=== PATIENT | female | born 1970 | race Caucasian/White ===

== ENCOUNTER 2018-10-03 15:09 | Emergency (ER) | payer MEDICARE, OTHER ==
[~2018-10-03] VITALS: Ht 170.2 cm; Wt 102.3 kg
[~2018-10-03 15:09] MED LIST: /AMLO25TA; /ESOM40CA; BETA80TA; BYSTOLIC; ECOT325T5; ESTRATEST; GLUC500T; RAMI25CA; RANE1000; RANO5TAB; SODIUM CHLORIDE 0.9% INJ 10 ML SYR IV SCH; VYTO10TA5; ZOLO100T
[2018-10-03] MEDS ORDERED: ASPIRIN 81 MG CHEW TABLET PO ONE (15:30)
[2018-10-03] MEDS ORDERED: GI COCKTAIL 50ML BTL(HYOSCYAMINE/MAALOX/LIDOCAINE VISCOUS)(1:3:1) PO ONE (15:30)
--- NOTE | 2018-10-03 15:50 | REP ---
Oral chest x-ray: Single view. History: Chest pain. Comparison study September 27, 2014. Findings: An Wcftzt-S-Smpq catheter is seen in place in the expected location of the superior vena cava. EKG electrodes are seen. Lungs are well inflated and clear. Heart is not enlarged. Left coronary artery stent material is visible. Pleural angles are sharp. No bony abnormality is seen. Impression: No active cardiopulmonary disease. Status post coronary artery stenting. Opkygj-V-[id number] catheter. Electronically Signed by Trent Devlin MD 10/03/2018 03:42 P
[2018-10-03 16:23] LABS: BASO % 0.5 % (0.0-1.0); EOS # 0.1 10^3/uL (0.0-0.50); HEMATOCRIT 37.6 % (36.0-47.0); HEMOGLOBIN 13.1 g/dl (12.0-15.5); LYMPH # 1.8 10^3/uL (1.5-4.5); LYMPH % 32.8 % (24.0-44.0); MEAN CORPUSCULAR HEMOGLOBIN 32.9 pg (27.0-33.0); MEAN CORPUSCULAR HGB CONC 34.8 g/dl (32.0-36.5); MEAN CORPUSCULAR VOLUME 94.5 fl (80.0-96.0); MONO # 0.7 10^3/uL (0.0-0.8); MONO % 12.2 % (0.0-5.0); NEUTROPHILS # 2.9 10^3/uL (1.8-7.7); NEUTROPHILS % 52.3 % (36.0-66.0); PLATELET COUNT, AUTOMATED 294 10^3/uL (150-450); RED BLOOD COUNT 3.98 10^6/uL (4.00-5.40); WHITE BLOOD COUNT 5.6 10^3/uL (4.0-10.0)
[2018-10-03] MEDS: NITROGLYCERIN 0.4 MG SUBL TABLET SL PRN ×3 (16:25→16:35)
[2018-10-03 16:30] LABS: INR 0.92; PROTHROMBIN TIME 12.4 SECONDS (12.1-14.4)
[2018-10-03 16:35] VITALS: BP 114/69
[2018-10-03 16:59] LABS: ALBUMIN 3.7 GM/DL (3.2-5.2); ALT/SGPT 68 U/L (12-78); BILIRUBIN,DIRECT < 0.1 MG/DL (0.0-0.2); BILIRUBIN,TOTAL 0.2 MG/DL (0.2-1.0); BLOOD UREA NITROGEN 22 MG/DL (7-18); CALCIUM LEVEL 8.2 MG/DL (8.5-10.1); CARBON DIOXIDE LEVEL 24 MEQ/L (21-32); CHLORIDE LEVEL 106 MEQ/L (98-107); CK-MB VALUE MASS < 1.0 NG/ML (<3.6); CPK CREATINE PHOSPHOKINASE 75 U/L (26-192); CREATININE FOR GFR 0.72 MG/DL (0.55-1.30); GLOMERULAR FILTRATION RATE > 60.0 (>58); GLUCOSE, FASTING 132 MG/DL (70-100); MB/CK RELATIVE INDEX 1.33 (< OR =4); NT-PRO BNP 68 PG/ML (<125); SODIUM LEVEL 139 MEQ/L (136-145); THYROID STIMULATING HORMONE 0.641 uIU/ML (0.358-3.740); TOTAL PROTEIN 6.9 GM/DL (6.4-8.2); TROPONIN I < 0.02 NG/ML (< 0.10)
[2018-10-03] MEDS ORDERED: fentaNYL 100 MCG/2 ML INJECTION (J3010) IV ONE ×2 (17:00→17:45)
[2018-10-03] MEDS ORDERED: TRAM50TA2 PO (17:37)
--- NOTE | 2018-10-03 17:40 | ECGEPIP ---
Stationary ECG Study [facility] - ED Test Date: 2018-10-03 Pat Name: ALBAN HINES Department: Room: - Gender: F Integration Solution [employer]: VIDYA : [id number] Requested By: Iris Lamas Order Number: [id number] Reading MD: Iris Lamas Measurements Intervals [place] Rate: 66 P: 40 WV: 134 QRS: 43 QRSD: 95 T: 128 QT: 411 QTc: 432 Interpretive Statements SINUS RHYTHM ST DEVIATION AND MODERATE T-WAVE ABNORMALITY, CONSIDER ANTEROLATERAL ISCHEMIA DECREASED RATE 09/28/14 Electronically Signed On 10-03-2018 17:40:21 EST by Iris Lamas
[2018-10-03] MEDS ORDERED: diphenhydrAMINE INJ 50MG/ML VIAL (J1200) IV STA (17:43)
[2018-10-03] MEDS ORDERED: SODIUM CHLORIDE 0.9% INJ 10 ML SYR IV PRN (18:15)
[2018-10-03 18:20] VITALS: BP 135/75
== END 2018-10-03 18:28 | disposition home or self-care (01) ==
LOC: M ED 15:09
DX: R07.89 Other chest pain (principal); I10 Essential (primary) hypertension; E11.9 Type 2 diabetes mellitus without complications; I25.10 Atherosclerotic heart disease of native coronary artery without angina pectoris; K21.9 Gastro-esophageal reflux disease without esophagitis; Z82.49 Family history of ischemic heart disease and other diseases of the circulatory system; Z79.899 Other long term (current) drug therapy; Z79.82 Long term (current) use of aspirin; Z88.0 Allergy status to penicillin; Z88.5 Allergy status to narcotic agent; Z88.8 Allergy status to other drugs, medicaments and biological substances
CPT/HCPCS: 71045; 80048; 80076; 82550; 82553; 83880; 84443; 84484; 85025; 85610; 93005; 93041; 94760; 96374; 96375; 99285; J1200; J3010

== ENCOUNTER 2020-11-01 23:17 | Observation (INO) | payer MEDICARE, OTHER ==
[~2020-11-01] VITALS: Ht 170.2 cm; Wt 108.9 kg
[2020-11-01] MEDS: busPIRone 5 MG TAB PO SCH (21:00)
[2020-11-01] MEDS: SOTALOL HCL 80 MG TAB PO SCH (21:00)
[~2020-11-01 23:17] MED LIST changes: -/AMLO25TA; -/ESOM40CA; -BETA80TA; +NEXI1CAP3; +NORV2TAB; +PRAMIPEXOLE 0.25 MG TAB PO SCH; -SODIUM CHLORIDE 0.9% INJ 10 ML SYR IV SCH; +SOTA80TA; +TRAM50TA2 PO; +traZODone 100 MG TAB PO SCH
[2020-11-02 00:37] VITALS: BP 116/73
--- OUTSIDE RECORDS SUMMARY | 2020-11-02 00:45 | CCD ---
Author Author [facility] Organization [facility] Address Unknown Phone Unavailable Care Team Providers [employer] Inspector Name Role Phone [facility] Unavailable Unavailable Kings, P Aiden DO Unavailable Unavailable Kings, P Aiden DO Unavailable Unavailable Kings, P Aiden DO Unavailable Unavailable Kings, P Aiden DO Unavailable Unavailable Kings, P Aiden DO Unavailable Unavailable Knigs, P Aiden DO Unavailable Unavailable Kings, P Aiden DO Unavailable Unavailable Kings, P Aiden DO Unavailable Unavailable Kings, P Aiden DO Unavailable Unavailable Kings, P Aiden DO Unavailable Unavailable Kings, P Aiden DO Unavailable Unavailable Kings, P Aiden DO Unavailable Unavailable Kings, P Aiden DO Unavailable Unavailable Kings, P Aiden DO Unavailable Unavailable Kings, P Aiden DO Unavailable Unavailable Kings, P Aiden DO Unavailable Unavailable Kings, P Aiden DO Unavailable Unavailable Kings, P Aiden DO Unavailable Unavailable Kings, P Aiden DO Unavailable Unavailable Kings, P Aiden DO Unavailable Unavailable Kings, P Aiden DO Unavailable Unavailable Kings, P Aiden DO Unavailable Unavailable Kings, P Aiden DO Unavailable Unavailable Kings, P Aiden DO Unavailable Unavailable Kings, P Aiden DO Unavailable Unavailable Kings, P Aiden DO Unavailable Unavailable Kings, P Aiden DO Unavailable Unavailable Kings, P Aiden DO Unavailable Unavailable Kings, P Aiden DO Unavailable Unavailable Kings, P Aiden DO Unavailable Unavailable Kings, P Aiden DO Unavailable Unavailable Kings, P Aiden DO Unavailable Unavailable Kings, P Aiden DO Unavailable Unavailable Kings, P Aiden DO Unavailable Unavailable Kings, P Aiden DO Unavailable Unavailable Kings, P Aiden DO Unavailable Unavailable Kings, P Aiden DO Unavailable Unavailable Kings, P Aiden DO Unavailable Unavailable Kings, P Aiden DO Unavailable Unavailable Kings, P Aiden DO Unavailable Unavailable Kings, P Aiden DO Unavailable Unavailable Kings, P Aiden DO Unavailable Unavailable Kings, P Aiden DO Unavailable Unavailable Kings, P Aiden DO Unavailable Unavailable Kings, P Aiden DO Unavailable Unavailable Kings, P Aiden DO Unavailable Unavailable Kings, P Aiden DO Unavailable Unavailable Kings, P Aiden DO Unavailable Unavailable Kings, P Aiden DO Unavailable Unavailable Kings, P Aiden DO Unavailable Unavailable Kings, P Aiden DO Unavailable Unavailable Kings, P Aiden DO Unavailable Unavailable Kings, P Aiden DO Unavailable Unavailable Kings, P Aiden DO Unavailable Unavailable Kings, P Aiden DO Unavailable Unavailable Kings, P Aiden DO Unavailable Unavailable Kings, P Aiden DO Unavailable Unavailable Kings, P Aiden DO Unavailable Unavailable Kings, P Aiden DO Unavailable Unavailable Kings, P Aiden DO Unavailable Unavailable Kings, P Aiden DO Unavailable Unavailable Kings, P Aiden DO Unavailable Unavailable Kings, P Aiden DO Unavailable Unavailable Kings, P Aiden DO Unavailable Unavailable Kings, P Aiden DO Unavailable Unavailable Kings, P Aiden DO Unavailable Unavailable Kings, P Aiden DO Unavailable Unavailable Kings, P Aiden DO Unavailable Unavailable TURRIN, STEPHAN Unavailable Unavailable TURRIN, STEPHAN Unavailable Unavailable TURRIN, STEPHAN Unavailable Unavailable TURRIN, STEPHAN Unavailable Unavailable LewisVivi wing PA-C Unavailable Unavailable LewisVivi PA-C Unavailable Unavailable LewisVivi PA-C Unavailable Unavailable LewisVivi PA-C Unavailable Unavailable LewisVivi PA-C Unavailable Unavailable LewisVivi PA-C Unavailable Unavailable LewisVivi PA-C Unavailable Unavailable LewisVivi PA-C Unavailable Unavailable LewisVivi PA-C Unavailable Unavailable Lewis, Vivi Perea PA-C Unavailable Unavailable Lewis, Vivi Perea PA-C Unavailable Unavailable Pocatello Falanga, A Lisa COMMUNICATION SPECIALIST Unavailable Unavailable [place] Falanga, A Lisa COMMUNICATION SPECIALIST Unavailable Unavailable [place] Falanga, A Lisa COMMUNICATION SPECIALIST Unavailable Unavailable Roman Falanga, A Lisa COMMUNICATION SPECIALIST Unavailable Unavailable Roman Falanga, A Lisa COMMUNICATION SPECIALIST Unavailable Unavailable Roman Falanga, A Lisa COMMUNICATION SPECIALIST Unavailable Unavailable Roman Falanga, A Lisa COMMUNICATION SPECIALIST Unavailable Unavailable [place]at[place] Falanga, A Lisa COMMUNICATION SPECIALIST Unavailable Unavailable Roman Falanga, A Lisa COMMUNICATION SPECIALIST Unavailable Unavailable [place] Falanga, A Lisa COMMUNICATION SPECIALIST Unavailable Unavailable Roman Falanga, A Lisa COMMUNICATION SPECIALIST Unavailable Unavailable [place] Falanga, A Lisa COMMUNICATION SPECIALIST Unavailable Unavailable Roman Falanga, A Lisa COMMUNICATION SPECIALIST Unavailable Unavailable Roman Falanga, A Lisa COMMUNICATION SPECIALIST Unavailable Unavailable Roman Falanga, A Lisa COMMUNICATION SPECIALIST Unavailable Unavailable [place] Falanga, A Lisa COMMUNICATION SPECIALIST Unavailable Unavailable Roman Falanga, A Lisa COMMUNICATION SPECIALIST Unavailable Unavailable Roman Falanga, A Lisa COMMUNICATION SPECIALIST Unavailable Unavailable Roman Falanga, A Lisa COMMUNICATION SPECIALIST Unavailable Unavailable [place] Falanga, A Lisa COMMUNICATION SPECIALIST Unavailable Unavailable Roman Falanga, A Lisa COMMUNICATION SPECIALIST Unavailable Unavailable Roman Falanga, A Lisa COMMUNICATION SPECIALIST Unavailable Unavailable [place] Falanga, A Lisa COMMUNICATION SPECIALIST Unavailable Unavailable [place] Falanga, A Lisa COMMUNICATION SPECIALIST Unavailable Unavailable [place] Falanga, A Lisa COMMUNICATION SPECIALIST Unavailable Unavailable Roman Falanga, A Lisa COMMUNICATION SPECIALIST Unavailable Unavailable [place] Falanga, A Lisa COMMUNICATION SPECIALIST Unavailable Unavailable [place] Falanga, A Lisa COMMUNICATION SPECIALIST Unavailable Unavailable [place] Falanga, A Lisa COMMUNICATION SPECIALIST Unavailable Unavailable Roman Falanga, A Lsia COMMUNICATION SPECIALIST Unavailable Unavailable LOURDES KRISHNAN MD Unavailable Unavailable LOURDES KRISHNAN MD Unavailable Unavailable LOURDES KRISHNAN MD Unavailable Unavailable LOURDES KRISHNAN MD Unavailable Unavailable LOURDES KRISHNAN MD Unavailable Unavailable AMERNATH, LINGAPPA MD Unavailable Unavailable AMERNATH, LINGAPPA MD Unavailable Unavailable AMERNATH, LINGAPPA MD Unavailable Unavailable AMERNATH, LINGAPPA MD Unavailable Unavailable AMERNATH, LINGAPPA MD Unavailable Unavailable AMERNATH, LINGAPPA MD Unavailable Unavailable AMERNATH, LINGAPPA MD Unavailable Unavailable Kings, P Aiden DO Unavailable Unavailable Kings, P Aiden DO Unavailable Unavailable Kings, P Aiden DO Unavailable Unavailable Kings, P Aiden DO Unavailable Unavailable Kings, P Aiden DO Unavailable Unavailable Kings, P Aiden DO Unavailable Unavailable Kings, P Aiden DO Unavailable Unavailable Kings, P Aiden DO Unavailable Unavailable Kings, P Aiden DO Unavailable Unavailable Kings, P Aiden DO Unavailable Unavailable Kings, P Aiden DO Unavailable Unavailable Kings, P Aiden DO Unavailable Unavailable Kings, P Aiden DO Unavailable Unavailable Kings, P Aiden DO Unavailable Unavailable Kings, P Aiden DO Unavailable Unavailable Kings, P Aiden DO Unavailable Unavailable Kings, P Aiden DO Unavailable Unavailable Kings, P Aiden DO Unavailable Unavailable Kings, P Aiden DO Unavailable Unavailable Kings, P Aiden DO Unavailable Unavailable Kings, P Aiden DO Unavailable Unavailable Kings, P Aiden DO Unavailable Unavailable Kings, P Aiden DO Unavailable Unavailable Kinsg, P Aiden DO Unavailable Unavailable Kings, P Aiden DO Unavailable Unavailable Kings, P Aiden DO Unavailable Unavailable Kings, P Aiden DO Unavailable Unavailable Kings, P Aiden DO Unavailable Unavailable Kings, P Aiden DO Unavailable Unavailable Kings, P Aiden DO Unavailable Unavailable Kings, P Aiden DO Unavailable Unavailable Kings, P Aiden DO Unavailable Unavailable Kings, P Aiden DO Unavailable Unavailable Kings, P Aiden DO Unavailable Unavailable Kings, P Aiden DO Unavailable Unavailable Kings, P Aiden DO Unavailable Unavailable Kings, P Aiden DO Unavailable Unavailable Kings, P Aiden DO Unavailable Unavailable Kings, P Aiden DO Unavailable Unavailable Kings, P Aiden DO Unavailable Unavailable Kings, P Aiden DO Unavailable Unavailable Kings, P Aiden DO Unavailable Unavailable Kings, P Aiden DO Unavailable Unavailable Kings, P Aiden DO Unavailable Unavailable Kings, P Aiden DO Unavailable Unavailable Kings, P Aiden DO Unavailable Unavailable Kings, P Aiden DO Unavailable Unavailable Kings, P Aiden DO Unavailable Unavailable Kings, P Aiden DO Unavailable Unavailable Kings, P Aiden DO Unavailable Unavailable Kings, P Aiden DO Unavailable Unavailable Kings, P Aiden DO Unavailable Unavailable Kings, P Aiden DO Unavailable Unavailable Kings, P Aiden DO Unavailable Unavailable Kings, P Aiden DO Unavailable Unavailable Kings, P Aiden DO Unavailable Unavailable Kings, P Aiden DO Unavailable Unavailable Kings, P Aiden DO Unavailable Unavailable Kings, P Aiden DO Unavailable Unavailable Kings, P Aiden DO Unavailable Unavailable Kings, P Aiden DO Unavailable Unavailable Kings, P Aiden DO Unavailable Unavailable Kings, P Aiden DO Unavailable Unavailable Kings, P Aiden DO Unavailable Unavailable Kings, P Aiden DO Unavailable Unavailable Kings, P Aiden DO Unavailable Unavailable Kings, P Aiden DO Unavailable Unavailable Kings, P Aiden DO Unavailable Unavailable Re-disclosure Warning The records that you are about to access may contain information from federally-assisted alcohol or drug abuse programs. If such information is present, then the following federally mandated warning applies: This information has been disclosed to you from records protected by federal confidentiality rules (42 CFR part 2). The federal rules prohibit you from making any further disclosure of this information unless further disclosure is expressly permitted by the written consent of the person to whom it pertains or as otherwise permitted by 42 CFR part 2. A general authorization for the release of medical or other information is NOT sufficient for this purpose. The Federal rules restrict any use of the information to criminally investigate or prosecute any alcohol or drug abuse patient.The records that you are about to access may contain highly sensitive health information, the redisclosure of which is protected by Article 27-F of the [facility] Public Health law. If you continue you may have access to information: Regarding HIV / AIDS; Provided by facilities licensed or operated by the [facility] Office of Mental Health; or Provided by the [facility] Office for People With Developmental Disabilities. If such information is present, then the following [facility] mandated warning applies: This information has been disclosed to you from confidential records which are protected by state law. State law prohibits you from making any further disclosure of this information without the specific written consent of the person to whom it pertains, or as otherwise permitted by law. Any unauthorized further disclosure in violation of state law may result in a fine or senior care sentence or both. A general authorization for the release of medical or other information is NOT sufficient authorization for further disc losure. Allergies and Adverse Reactions Type Description Substance Reaction Status Data Source(s ) Food allergy Rootbeer Rootbeer YASMINZARIA Imelda Are a [facility] BRANDNAME ZOFRAN IJ CHRISTINE 2 MG/ML ZOFRAN IJ CHRISTINE 2 MG/ML VOMITING [facility] BRANDNAME SEROQUEL SEROQUEL [facility] BRANDNAME NITRO-BID NITRO-BID <OTHER>severe headache C arthage [facility] BRANDNAME LYRICA LYRICA [facility] BRANDNAME AUGMENTIN AUGMENTIN [facility] allergy MORPHINE MORPHINE HIVES [facility] CLASS PCN (penicillin) PCN (penicillin) [facility] Family History Family Member Name Family Member Gender Family Member Status Date o f Status Description Data Source(s) Unknown Condition [facility] Unknown Condition [facility] Unknown Condition [facility] Encounters Encounter Providers Location Date Indications Data Source(s ) Outpatient Attender: [facility] 11/01/2020 07:2 0:00 PM EST [facility] Emergency Attender: Eliazar BARFIELDCConsultant: Aiden soares DO 11/01/2020 06:24:00 PM EST - 11/02/2020 12:03:00 AM EST [facility] Patient discharged. Outpatient Attender: Aiden Gaytaner: Aiden Kilpatrick DO 06/12/2020 04:01:00 PM EDT [facility] Outpatient Attender: Lisa victor FNPAttender: STEPHAN JENKINSConsultant: Aiden Kilpatrick DO 06/04/2020 10:27:00 P M EDT - 06/06/2020 10:40:00 AM EDT [facility] Patient discharged. 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 Outpatient Attender: Aiden Kilpatrick DOReferrer: Aiden Kilpatrick DO 09/12/2019 01:56:00 PM [facility] - 09/12/2019 02:48:00 PM EST [facility] Outpatient 09/07/2019 07:45:00 AM [facility] Outpatient 09/05/2019 11:51:00 AM [facility] Outpatient Attender: Lisa victor FNPAttender: STEPHAN JENKINSConsultant: Aiden Kings DO 09/05/2019 11:28:00 A M [facility] - 09/07/2019 11:17:00 AM [facility] Patient discharged. Medications Medication Brand Name Start Date Product Form Dose Route Admi nistrative Instructions Pharmacy Instructions Status Indications Reaction Description Data Source(s) Alprazolam 0.5 MG Oral Tablet Alprazolam 06/12/2020 05:18:17 PM EDT 0.5 MG active [facility] Metoprolol Tartrate 25 MG Oral Tablet Metoprolol Tartrate 04:30:06 PM EDT 25 MG active [facility] Pantoprazole 05/29/2020 06:15:10 AM EDT 40 MG acti ve [facility] pantoprazole 40 MG Delayed Release Oral Tablet Pantoprazole (Protonix) 40 mg tablet,delayed release (DR/EC) Pantoprazole (Protonix) 40 mg tablet,del ayed release (DR/EC) 04/26/2020 02:55:54 PM EDT 40 MG complet ed [facility] Clonazepam 0.5 MG Oral Tablet Clonazepam 01/31/2020 06:52:54 PM EDT 0.5 MG completed [facility] Clonazepam 0.5 MG Oral Tablet Clonazepam 01/31/2020 06:51:48 PM EDT 0.5 MG completed [facility] Clonazepam 0.5 MG Oral Tablet Clonazepam 01/31/2020 05:53:26 PM EDT 0.5 MG completed [facility] Clonazepam 0.5 MG Oral Tablet Clonazepam 01/31/2020 04:25:31 PM EDT 0.5 MG completed [facility] pantoprazole 40 MG Delayed Release Oral Tablet Pantoprazole (Protonix) 40 mg tablet,delayed release (DR/EC) Pantoprazole (Protonix) 40 mg tablet,del ayed release (DR/EC) 12/22/2019 10:49:36 AM EDT 40 MG complet ed [facility] pantoprazole 40 MG Delayed Release Oral Tablet Pantoprazole Pantoprazole 12/22/2019 10:49:36 AM EDT 40 MG active [facility] Trazodone Hydrochloride 100 MG Oral Tablet Trazodone 12/11 11:56:41 AM EDT 100 MG active [facility] Trazodone Hydrochloride 100 MG Oral Tablet Trazodone 12/11 11:56:41 AM EDT 100 MG active [facility] Sotalol Sotalol 12/12/2019 11:56:38 AM EDT 80 MG active [facility] Sotalol Sotalol 12/12/2019 11:56:38 AM EDT 80 MG [facility] Ramipril 2.5 MG Oral Capsule Ramipril 12/12/2019 11:56:34 AM EDT 2.5 MG active [facility] Ramipril 2.5 MG Oral Capsule Ramipril 12/12/2019 11:56:34 AM EDT 2.5 MG active [facility] buspirone hydrochloride 15 MG Oral Tablet Buspirone Buspiron e 12/12/2019 11:56:15 AM EDT 15 MG active [facility] buspirone hydrochloride 15 MG Oral Tablet Buspirone Buspiron e 12/12/2019 11:56:15 AM EDT 15 MG active [facility] Amlodipine 5 MG Oral Tablet Amlodipine 12/12/2019 11:56:08 AM EDT 5 MG active [facility] Amlodipine 5 MG Oral Tablet Amlodipine 12/12/2019 11:56:08 AM EDT 5 MG active [facility] Pramipexole dihydrochloride 0.5 MG Oral Tablet Pramipexole (Mirapex) 0.5 mg tablet Pramipexole (Mirapex) 0.5 mg tablet 11/03/2019 12:50:57 PM EST 0.5 MG active [facility] Pramipexole dihydrochloride 0.5 MG Oral Tablet Pramipexole 11/03/2019 12:50:57 PM EST 0.5 MG active [facility] 0.5 mg 10/01/2019 12:00:00 AM EST tablet 60 TAKE ONE TABLET BY MOUTH AT BEDTIME TAKE ONE TABLET BY MOUTH AT BEDTIME SOLD: 10/01/2019 [facility] 100 mg 10/01/2019 12:00:00 AM EST tablet 60 TAKE ONE TABLET BY MOUTH AT BEDTIME TAKE ONE TABLET BY MOUTH AT BEDTIME SOLD: 10/01/2019 [facility] 80 mg 10/01/2019 12:00:00 AM EST tablet 120 TAKE ONE TABLET BY MOUTH TWICE A DAY TAKE ONE TABLET BY MOUTH TWICE A DAY SOLD: 10/01/2019 [facility] benzonatate 200 MG Oral Capsule Benzonatate Benzonatate 09/12/2019 02:47:44 PM EST 200 MG completed [facility] benzonatate 200 MG Oral Capsule Benzonatate Benzonatate 09/12/2019 02:47:44 PM EST 200 MG active [facility] Prednisone 20 MG Oral Tablet Prednisone 09/12/2019 02:46:55 PM EST 20 MG completed [facility] Prednisone 20 MG Oral Tablet Prednisone 09/12/2019 02:46:55 PM EST 20 MG active [facility] doxycycline hyclate 100 MG Oral Capsule Doxycycline Hyclate Doxycycline Hyclate 09/12/2019 02:46:41 PM EST 100 MG completed [facility] doxycycline hyclate 100 MG Oral Capsule Doxycycline Hyclate Doxycycline Hyclate 09/12/2019 02:46:41 PM EST 100 MG [facility] Acetaminophen 300 MG / Hydrocodone Jeancarlos trate 10 MG Oral Tablet Hydrocodone-Acetaminophen Hydrocodone-Acetaminophen 09/12/2019 02:45:23 PM EST 0.5 TAB active [facility] Acetaminophen 300 MG / Hydrocodone Jeancarlos trate 10 MG Oral Tablet Hydrocodone- Acetaminophen (Vicodin Hp) 10-300 mg tablet Hydrocodone-Acetaminophen (Vicodin Hp) 10-300 mg tablet 09/12/2019 02:45:23 PM EST 0.5 TAB completed [facility] Trazodone Hydrochloride 100 MG Oral Tablet Trazodone 09/12 02:13:29 PM EST 100 MG completed [facility] Trazodone Hydrochloride 100 MG Oral Tablet Trazodone 09/12 02:13:29 PM EST 100 MG completed [facility] Sotalol Sotalol 09/12/2019 02:13:22 PM EST 80 MG comple [facility] Sotalol Sotalol 09/12/2019 02:13:22 PM EST 80 MG comple [facility] Ramipril 2.5 MG Oral Capsule Ramipril 09/12/2019 02:13:15 PM EST 2.5 MG completed [facility] Ramipril 2.5 MG Oral Capsule Ramipril 09/12/2019 02:13:15 PM EST 2.5 MG [facility] Pramipexole dihydrochloride 0.5 MG Oral Tablet Pramipexole 09/12/2019 02:13:09 PM EST 0.5 MG completed [facility] Pramipexole dihydrochloride 0.5 MG Oral Tablet Pramipexole (Mirapex) 0.5 mg tablet Pramipexole (Mirapex) 0.5 mg tablet 09/12/2019 02:13:09 PM EST 0.5 MG completed [facility] venlafaxine 75 MG Oral Tablet Venlafaxine Venlafaxine 09/12/2019 02:10:13 PM EST 75 MG active [facility] venlafaxine 75 MG Oral Tablet Venlafaxine Venlafaxine 09/12/2019 02:10:13 PM EST 75 MG active [facility] Metoprolol Tartrate 25 MG Oral Tablet Metoprolol Tartrate 02:09:22 PM EST 12.5 MG active [facility] Metoprolol Tartrate 25 MG Oral Tablet Metoprolol Tartrate 02:09:22 PM EST 12.5 MG [facility] 2.5 mg 09/12/2019 12:00:00 AM EST capsule 90 TAKE ONE CAPSULE BY MOUTH EVERY DAY TAKE ONE CAPSULE BY MOUTH EVERY DAY SOLD: 09/12/2019 [facility] 20 mg 09/12/2019 12:00:00 AM EST tablet 9 TAKE TWO TABLETS BY MOUTH EVERY DAY FOR 3 DAYS THE 1 ONCE DAILY FOR 3 DAYS TAKE TWO TABLETS BY MOUTH EVERY DAY FOR 3 DAYS THE 1 ONCE DAILY FOR 3 DAYS SOLD: 09/12/2019 [facility] 200 mg 09/12/2019 12:00:00 AM EST capsule 21 TAKE ONE CAPSULE BY MOUTH THREE TIMES A DAY NEEDED COUGH TAKE ONE CAPSULE BY MOUTH THREE TIMES A DAY NEEDED COUGH SOLD: 09/12/2019 [facility] 10-325 mg 09/12/2019 12:00:00 AM EST tablet 10 TAKE 1/2 TABLET BY MOUTH EVERY 6 HOURS NEEDED FOR PAIN MAXIMUM DAILY DOSE = 2 TABLETS TAKE 1/2 TABLET BY MOUTH EVERY 6 HOURS NEEDED FOR PAIN MAXIMUM DAILY DOSE = 2 TABLETS SOLD: 09/12/2019 [facility] 100 mg 09/12/2019 12:00:00 AM EST capsule 20 TAKE ONE CAPSULE BY MOUTH TWICE A DAY FOR 10 DAYS TAKE ONE CAPSULE BY MOUTH TWICE A DAY FOR 10 DAYS SOLD : 09/12/2019 [facility] 40 mg 09/09/2019 12:00:00 AM EST tablet,delayed release (DR/EC) 60 TAKE ONE TABLET BY MOUTH TWICE A DAY TAKE ONE TABLET BY MOUTH TWICE A DAY SOLD: 09/12/2019 [facility] pantoprazole 40 MG Delayed Release Oral Tablet Pantoprazole Pantoprazole 09/08/2019 04:37:14 PM EST 40 MG completed [facility] pantoprazole 40 MG Delayed Release Oral Tablet Pantoprazole (Protonix) 40 mg tablet,delayed release (DR/EC) Pantoprazole (Protonix) 40 mg tablet,del ayed release (DR/EC) 09/08/2019 04:37:14 PM EST 40 MG complet ed [facility] Metoprolol Tartrate 25 MG Oral Tablet Metoprolol Tartrate 06:14:54 AM EST 25 MG completed [facility] Metoprolol Tartrate 25 MG Oral Tablet Metoprolol Tartrate 06:14:54 AM EST 25 MG completed [facility] lansoprazole 30 MG Delayed Release Oral Capsule Lansoprazole (Prevacid) 30 mg capsule,delayed release(DR/EC) Lansoprazole (Prevacid) 30 mg capsule,de layed release(DR/EC) 09/01/2019 06:14:40 AM EST 30 MG complete d [facility] lansoprazole 30 MG Delayed Release Oral Capsule Lansoprazole Lansoprazole 09/01/2019 06:14:40 AM EST 30 MG completed [facility] buspirone hydrochloride 15 MG Oral Tablet Buspirone Buspiron e 09/01/2019 06:14:08 AM EST 15 MG completed [facility] buspirone hydrochloride 15 MG Oral Tablet Buspirone Buspiron e 09/01/2019 06:14:08 AM EST 15 MG completed [facility] Amlodipine 5 MG Oral Tablet Amlodipine 09/01/2019 06:13:48 AM EST 5 MG completed [facility] Amlodipine 5 MG Oral Tablet Amlodipine 09/01/2019 06:13:48 AM EST 5 MG completed [facility] Clobetasol-Emollient 06/15/2019 09:08:49 AM EDT 1 APPLIC completed [facility] Clobetasol-Emollient 06/15/2019 09:08:49 AM EDT 1 APPLIC completed [facility] Dapsone 0.05 MG/MG Topical Gel Dapsone 06/15/2019 09:08:10 AM EDT 1 APPLIC completed [facility] Dapsone 0.05 MG/MG Topical Gel Dapsone 06/15/2019 09:08:10 AM EDT 1 APPLIC completed [facility] Trazodone Hydrochloride 100 MG Oral Tablet Trazodone 03/01 08:08:42 PM EDT 100 MG completed [facility] Trazodone Hydrochloride 100 MG Oral Tablet Trazodone 03/01 08:08:42 PM EDT 100 MG completed [facility] Pramipexole dihydrochloride 0.5 MG Oral Tablet Pramipexole (Mirapex) 0.5 mg tablet Pramipexole (Mirapex) 0.5 mg tablet 03/01/2019 08:08:26 PM EDT 0.5 MG completed [facility] Pramipexole dihydrochloride 0.5 MG Oral Tablet Pramipexole 03/01/2019 08:08:26 PM EDT 0.5 MG completed [facility] venlafaxine 75 MG Oral Tablet Venlafaxine Venlafaxine 02/25/2019 09:56:01 AM EDT 75 MG completed [facility] venlafaxine 75 MG Oral Tablet Venlafaxine Venlafaxine 02/25/2019 09:56:01 AM EDT 75 MG completed [facility] Sotalol Sotalol 02/25/2019 09:54:29 AM EDT 80 MG comple [facility] [facility] S[facility] 02/25/2019 09:54:29 AM EDT 80 MG comple [facility] Ramipril 2.5 MG Oral Capsule Ramipril 02/03/2019 10:37:34 AM EDT 2.5 MG completed [facility] Ramipril 2.5 MG Oral Capsule Ramipril 02/03/2019 10:37:34 AM EDT 2.5 MG [facility] Insurance Providers Payer name Policy type / Coverage type Policy ID Covered constitution party ID Covered constitution party's relationship to wu Policy Wu Plan Information [facility] [id number] SP [id number] MEDICARE [id number] SP [id number] A [place] [employer] [facility] [id number] 18 [id number] MEDICARE PART A-O/P [id number] 18 [id number] MEDICARE PART A-O/P [id number] 18 [id number] [facility]-O/P [id number] 18 [id number] MEDICARE PART A AR [id number] 18 [id number] MVP COMMERCIAL HM UNAVAILABLE 01 HILL VAILABLE MEDICARE [id number] Patient [id number] A P PPO [id number] Patient [id number] MVP HEALTH CARE O [id number] S [id number] MEDICARE C [id number] S [id number] A [facility] [id number] SP [id number] MVP UNAVAILABLE 01 UNAVAILA BLE MEDICARE PART A [facility] [id number] 18 [id number] MVP EXCHANGE U [id number] Self [id number] MEDICARE A [id number] Self [id number] A P HEALTH CARE O [id number] S [id number] MVP MEDICAID HMO -PHYSICIAN [id number] 01 [id number] BLUE [place] BLUE SHIELD-O/P [id number] 01 [id number] MVP MEDICAID HMO -O/P [id number] 01 [id number] MVP H [id number] Self [id number] MEDICARE PART B [id number] Patient [id number] MVP Insurance Health Maintenance Organization (HMO) [id number] Family Dependent [id number] [place] Primary [id number] Self [id number] MVP Insurance Health Maintenance Organization (HMO) Self Medicare [place] Primary Self MVP EXCHANGE (238) [id number] 2 [id number] ASSIGNED MEDICARE (81) [id number] 1 [id number] MVP (198) [id number] 2 [id number] MVP HEALTH EXCHANGE [id number] Patient [id number] MEDICARE [id number] Patient [id number] A MVP Health Maintenance Organization (HMO) Fa leni Dependent Medicare [place] Primary Self [facility] [id number] SP [id number] [employer] HMO/PPO [id number] Patient [id number] [place] [id number] HU2 [id number] [place] P[place] 302/307 [id number] MEDICARE [id number] SP [id number] A BLUE [place]OSS BLUE SHIELD-O/P [id number] EXCELLUS PPO [id number] SP [id number] MEDICARE PART B [id number] PT [id number] MEDICARE PART A [id number] PT [id number] Problems, Conditions, and Diagnoses Code Display Name Description Problem Type Effective Dates Data Source(s) Z955 Presence of coronary angioplasty implant and graft Presence of coronary angioplasty implant and graft Diagnosis 06/04/2020 10:27:00 PM EDT [facility] I2510 Atherosclerotic heart diseas e of [place] coronary artery without angina pectoris Atherosclerotic heart disease of [place] coronary artery without angina pectoris Diagnosis 06/04/2020 10:27:00 PM EDT [facility] I10 Essential (primary) hypertension Essential (primary) h ypertension Diagnosis 06/04/2020 10:27:00 PM EDT [facility] R000 Tachycardia, unspecified Tachycardia, unspecified Diag nosis 06/04/2020 10:27:00 PM EDT [facility] E119 Type 2 diabetes mellitus without complic ations Type 2 diabetes mellitus without complications Diagnosis 06/04/2020 10:27:00 PM EDT [facility] R0789 Other chest pain Other chest pain Diagnosis 06/04/2020 10 :27:00 PM EDT [facility] Z951 Presence of aortocoronary bypass graft P resence of aortocoronary bypass graft Diagnosis 09/19/2019 06:57:00 PM [facility] E669 Obesity, unspecified Obesity, unspecified Diagnosis 09/05/2019 11:28:00 AM [facility] E785 Hyperlipidemia, unspecified Hyperlipidemia, unspecifie d Diagnosis 09/05/2019 11:28:00 AM [facility] E860 Dehydration Dehydration Diagnosis 09/05/2019 11:28:00 AM [facility] R079 Chest pain, unspecified Chest pain, unspecified Diagno sis 09/05/2019 11:28:00 AM [facility] J209 Acute bronchitis, unspecified Acute bronchitis, unspec ified Diagnosis 09/05/2019 11:28:00 AM [facility] Surgeries/Procedures Procedure Description Date Indications Data Source(s) Bacteria identification test (procedure) 09/07/2019 12 :00:00 AM [facility] Gram stain microscopy (procedure) 09/07/2019 12:00:00 AM [facility] Bacteria identification test (procedure) 09/07/2019 12 :00:00 AM [facility] Gram stain microscopy (procedure) 09/07/2019 12:00:00 AM [facility] Bacteria identification test (procedure) 09/07/2019 12 :00:00 AM [facility] Gram stain microscopy (procedure) 09/07/2019 12:00:00 AM [facility] Blood culture for bacteria, including anaerobic screen (proc edure) 09/05/2019 12:00:00 AM [facility] l Blood culture for bacteria, including anaerobic screen (proc edure) 09/05/2019 12:00:00 AM [facility] Blood culture for bacteria, including anaerobic screen (proc edure) 09/05/2019 12:00:00 AM [facility] l Results ID Date Data Source [id number] 11/01/2020 10:39:00 PM [facility] Name Value Range Interpretation Code Description Data [facility] rce(s) Supporting Document(s) TROPONIN T <0.01 NG/ML 0.00 - 0.10 [facility] TROPONIN T0.1 ng/ml Recommended as the c linical threshold value forTroponin T. ID Date Data Source [id number] 11/01/2020 09:52:00 PM [facility] NOT DETECTEDNOT DETECTED{ PROC EDURAL CONTROL VALID KIT LOT # _[id number] 11/01/20.HERMAN. KIT EXP DATE _57-64-11 11/01/20.HERMAN. NORMAL RANGE IS NOT DETECTEDNEGATIVE RESULTS SHOULD BE TREATED PRESUMPTIVE AND, IF INCONSISTENT WITHCLINICAL SIGNS AND SYMPTOMS OR NECESSARY FOR PATIENT MANAGEMENT, SHOULD BETESTED WITH DIFFERENT AUTHORIZED OR CLEARED MOLECULAR TESTS. NEGATIVE RESULTSDO NOT PRECLUDE SARS-CoV-2 INFECTION AND SHOULD NOT BE USED THE SOLE BASISFOR PATIENT MANAGEMENT DECISIONS. Name Value Range Interpretation Code Description Data Tabitha rce(s) Supporting Document(s) ID Date Data Source [id number] 11/01/2020 08:33:00 PM [facility] Name Value Range Interpretation Code Description Data [facility] rce(s) Supporting Document(s) [facility] COL[facility] yellow NORMAL: Yellow [facility] CLARITY clear NORMAL: Clear [facility] Specific gravity of Urine by Test strip 1.025 1.001 - 1.030 [facility] pH 5 5 - 9 [facility] Glucose [Mass/volume] in Urine by Test strip NORM NORMAL: Negat [facility] Bilirubin.total [Presence] in Urine by Test strip NEG NORMAL: Negative [facility] Ketones [Presence] in Urine by Test strip NEG NORMAL: Negative [facility] Protein [Mass/volume] in Urine by Test strip NEG NORMAL: Negat [facility] Nitrite [Presence] in Urine by Test strip NEG NORMAL: Negative [facility] BLOOD NEG NORMAL: Negative [facility] Leukocyte esterase [Presence] in Urine by Test strip NEG RADHA L: Negative [facility] Urobilinogen [Mass/volume] in Urine by Test strip NOR less cecilio n 1.0 mg/dL [facility] MICROSCOPIC Not Indicate [facility] ID Date Data Source [id number] 11/01/2020 09:28:00 PM [facility] Name Value Range Interpretation Code Description Data Tabitha rce(s) Supporting Document(s) Lactic w Rfx (if elevated) 1.3 mmol/L 0.5-2.0 [facility] ID Date Data Source [id number] 11/01/2020 10:04:00 PM [facility] Name Value Range Interpretation Code Description Data Tabitha rce(s) Supporting Document(s) LACTIC ACID (LACTATE) [facility] [place] [address] CLIA# [id number] SEE SCANNED REPORT ID Date Data Source [id number] 11/01/2020 08:27:00 PM [facility] Name Value Range Interpretation Code Description Data Tabitha rce(s) Supporting Document(s) Fibrin D-dimer FEU [Mass/volume] in Platelet poor plasma 0.71 ug /mL 0.27 - 0.50 H [facility] ID Date Data Source [id number] 11/01/2020 08:27:00 PM [facility] Name Value Range Interpretation Code Description Data Tabitha rce(s) Supporting Document(s) Prothrombin time (PT) 13.6 SECONDS 11.0 - 15.5 [facility] INR in Platelet poor plasma by Coagulation assay 0.99 0.93 - 1. 23 [facility] aPTT in Blood by Coagulation assay 52.0 SECONDS 24.8 - 36.7 H [facility] \\BLDo\\INR INTERPRETATION\\BLDx\\ Therapeutic range for Coumadin and related oral anticoagulants. - International Normalized Ratio (INR): 2.0 - 3.0 for Venous Thrombosis, Pulmonary Embolus, Tissue heart valves, Acute IN Atrial Fibrillation, Valvular heart disease and recurrent Systemic Embolism. - International Normalized Ratio (INR): 2.5 - 3.5 for Mechanical Prosthetic valve. ID Date Data Source [id number] 11/01/2020 08:27:00 PM EST [facility] Name Value Range Interpretation Code Description Data Tabitha rce(s) Supporting Document(s) COMPREHENSIVE METABOLIC PANEL [facility] COMPREHENSIVE METABOLIC PANEL Sodium [Moles/volume] in Serum or Plasma 140 mEq/L 134 - 153 [facility] Potassium [Moles/volume] in Serum or Plasma 3.8 mEq/L 3.6 - 5.0 [facility] Chloride [Moles/volume] in Serum or Plasma 105 mEq/L 98 - 107 [facility] Carbon dioxide, total [Moles/volume] in Serum or Plasma 26 MEQ/L 22 - 30 [facility] Glucose [Mass/volume] in Serum or Plasma 110 MG/DL 70 - 99 H [facility] BUN 20 MG/DL 7 - 21 [facility] Creatinine [Mass/volume] in Serum or Plasma 0.9 MG/DL 0.7 - 1.5 [facility] BUN/CREAT 22 8 - 27 [facility] Protein [Mass/volume] in Serum or Plasma 7.3 G/DL 6.3 - 8.2 [facility] Albumin [Mass/volume] in Serum or Plasma 4.2 G/DL 3.9 - 5.0 [facility] Globulin [Mass/volume] in Serum by calculation 3.1 GM/DL 2.4 - 3.2 [facility] A/G RATIO 1.4 0.8 - 2.0 [facility] Calcium [Mass/volume] in Serum or Plasma 8.7 MG/DL 8.4 - 10.2 [facility] Bilirubin.total [Mass/volume] in Serum or Plasma <0.7 MG/DL 0.2 - 1.3 [facility] Alkaline phosphatase [Enzymatic activity/volume] in Serum or Plasma 81 U/L 38 - 126 [facility] Aspartate aminotransferase [Enzymatic activity/volume] in Serum or Plasma 77 U/L 5 - 40 H [facility] Alanine aminotransferase [Enzymatic activity/volume] in Seru m or Plasma 107 U/L 7 - 56 H [facility] Anion gap 3 in Serum or Plasma 9.0 mmol/L 8.0 - 16.0 [facility] AGE 50 yrs [facility] NON-AA GFR >60 mL/min [facility] AFR AMER GFR >60 mL/min [facility] Male GFR In terprentation 20-49 yrs >60 mL/min Normal 50-59 yrs >56 mL/min Normal 60-69 yrs >49 mL/min Normal 70-79yrs >42 mL/min Normal 80 and above >35 mL/min Normal Female GFR Interpretation 20-39 yrs >60 mL/min Normal 40-49 yrs >58 mL/min Normal 50-59 yrs >51 mL/min Normal 60-69 yrs >45 mL/min Normal 70-79 yrs >39 mL/min Normal 80 and above >32 mL/min Normal ID Date Data Source [id number] 11/01/2020 08:18:00 PM [facility] Name Value Range Interpretation Code Description Data Tabitha rce(s) Supporting Document(s) TROPONIN T <0.01 NG/ML 0.00 - 0.10 [facility] TROPONIN T0.1 ng/ml Recommended as the c linical threshold value forTroponin T. ID Date Data Source [id number] 11/01/2020 08:14:00 PM [facility] Name Value Range Interpretation Code Description Data Tabitha rce(s) Supporting Document(s) BNP 64 PG/ML 0 - 125 [facility] ID Date Data Source [id number] 11/01/2020 08:05:00 PM [facility] Name Value Range Interpretation Code Description Data Tabitha rce(s) Supporting Document(s) CBC W/AUTOMATED DIFF [facility] COMPLETE BLOOD COUNT Leukocytes [#/volume] in Blood by Automated count 5.2 10^3/uL 4.2 - 1 1.0 [facility] Erythrocytes [#/volume] in Blood by Automated count 4.02 10^6/uL 4. 20 - 5.40 L [facility] Hemoglobin [Mass/volume] in Blood 13.1 g/dL 12.0 - 16.0 [facility] Hematocrit [Volume Fraction] of Blood by Automated count 37.8 % 3 7.0 - 47.0 [facility] Erythrocyte mean corpuscular volume [Entitic volume] by Auto mated count 94.0 fL 81.0 - 101 [facility] Erythrocyte mean corpuscular hemoglobin [Entitic mass] by Automated count 32.6 pg 27.0 - 34.0 [facility] Erythrocyte mean corpuscular hemoglobin concentration [Mass/volume] by Automated count 34.7 g/dL 31.0 - 36.0 [facility] Erythrocyte distribution width [Ratio] by Automated count 12.6 % 11.5 - 14.5 [facility] Platelets [#/volume] in Blood by Automated count 271 10^3/uL 150 - 45 0 [facility] Platelet mean volume [Entitic volume] in Blood by Automated count 10.1 fL 7.4 - 10.4 [facility] Neutrophils/100 leukocytes in Blood by Automated count 43.4 % 37. 0 - 80.0 [facility] Lymphocytes/100 leukocytes in Blood by Manual count 42.9 % 25.0 - 40.0 H [facility] Monocytes/100 leukocytes in Blood by Automated count 11.7 % 3.0 - 8.0 H [facility] Eosinophils/100 leukocytes in Blood by Automated count 1.0 % 0.0 - 7.0 [facility] Basophils/100 leukocytes in Blood by Automated count 0.6 % 0.0 - 2.5 [facility] %IG 0.4 % 0.0 - 0.0 H [facility] %NRBC 0.0 % 0.0 - 0.0 [facility] Neutrophils [#/volume] in Blood by Automated count 2.26 10^3/uL 2.00 - 6.90 [facility] Lymphocytes [#/volume] in Blood by Automated count 2.23 10^3/uL 0.60 - 3.40 [facility] Monocytes [#/volume] in Blood by Automated count 0.61 10^3/uL 0.00 - 0.90 [facility] Eosinophils [#/volume] in Blood by Automated count 0.05 10^3/uL 0.00 - 0.70 [facility] Basophils [#/volume] in Blood by Automated count 0.03 10^3/uL 0.00 - 0.20 [facility] #IG 0.02 10^3/uL 0.00 - 0.10 [facility] #NRBC 0.00 10^3/uL 0.00 - 0.00 [facility] MANUAL DIFF NOT INDICATED [facility] RBC MORPH NOT INDICATED [facility] ID Date Data Source [id number] 08/17/2020 12:00:00 AM EST [facility] Name Value Range Interpretation Code Description Data Tabitha rce(s) Supporting Document(s) 2019-nCoV RNA XXX IESHA+probe-Imp [facility] This lab was ordered by [facility] and reported by [facility]. ID Date Data Source [id number] 06/12/2020 04:23:00 PM EDT [facility] Patient Name: Miriam Hines : 1970 Sex: F Pt Unit #: [id number] Location:[facility] Provider: Visit Date/Time: 06/12/20 Primary Insurance: MEDICARE [place] Secondary Insurance: Self Pay Intake Vital Signs 06/12/20 16:23 Current Height 5 ft 7 in Current Weight 240 lb Weight Measurement Method Standing Scale BMI 37.5 BP 142/90 Position Sitting Respiration 18 Pulse 64 Temp 98.8 F Temp Source Oral Pulse Oximetry (%) 98 Oxygen Delivery Method room air Intake Visit Reasons: Hospital Discharge Follow- up Is patient in pain?: Yes (Just normal arthritis pain) Pain scale (1-10): 4 Allergies morphine [Morphine] Allergy (Intermediate, Verified 02/04/19 04:50) HIVES, ITCHING hydromorphone HCl [From Dilaudid] Allergy (Mild, Verified 02/04/19 04:50) ITCHING aripiprazole [From ABILIFY] Adverse Reaction (Severe, Verified 02/04/19 04:50) Anxiety/Muscle Cramps ondansetron [From Zofran] Adverse Reaction (Severe, Verified 02/04/19 04:50) VOMITING ROOT BEER [ROOT BEER (food)] Adverse Reaction (Severe, Verified 02/04/19 04:50) NAUSEA,VOMITING,HIVES,PASSES OUT celecoxib [From Celebrex] Adverse Reaction (Intermediate, Verified 02/04/19 04:50) Depression duloxetine [From Cymbalta] Adverse Reaction (Intermediate, Verified 02/04/19 04:50) Depression gabapentin [From Neurontin] Adverse Reaction (Intermediate, Verified 02/04/19 04:50) GI Upset Penicillins [PENICILLINS] Adverse Reaction (Intermediate, Verified 02/04/19 04:50) Dyspnea/Diarrhea pravastatin Adverse Reaction (Intermediate, Verified 02/04/19 04:50) RUQ abdominal pain pregabalin [From LYRICA] Adverse Reaction (Intermediate, Verified 02/04/19 04:50) INCREASED DEPRESSION rosuvastatin [From Crestor] Adverse Reaction (Intermediate, Verified 02/04/19 04:50) Abdominal Cramps dicyclomine Adverse Reaction (Unknown, Verified 02/04/19 04:50) PLEASE VERIFY REACTION Medications amlodipine 5 mg PO QDAY aspirin 81 mg PO DAILY buspirone 15 mg PO BID calcium carbonate 600 mg PO DAILY erythromycin-benzoyl peroxide 3-5 % 1 applic topical BID melatonin 10 mg sublingual HS metoprolol tartrate 25 mg PO BID multivitamin (Daily Multi-Vitamin) 1 tab PO DAILY nitroglycerin (Nitrostat) 0.4 mg sublingual PRN PRN omega-3 fatty acids (Fish Oil) 300 mg PO DAILY pantoprazole 40 mg PO BID pramipexole (Mirapex) 0.5 mg PO HS ramipril 2.5 mg PO QDAY sotalol 80 mg PO BID trazodone 100 mg PO HS venlafaxine 75 mg PO QDAY HIV Testing Offer - ages 13-64 Requirement for HIV testing offer been met?: Declines today. Pretest education received and acknowledged Coronavirus Screening Screening Have you traveled outside of [facility] or [facility] in the last 14 days.: No Has patient experienced coronavirus symptoms: No PFSH Medical History (Updated 06/17/19 @ 07:05 by Shweta Kaur) 1v CABG 2003 [place] to LAD Allergies/Hayfever Angina pectoris Anxiety Arthritis Biliary dyskinesia Chronic migraine Coronary Artery Disease Depressive disorder Diabetes mellitus Diarrhea Fibromyalgia Gastroesophageal reflux disease Headache Hiatal hernia Hidradenitis suppurativa History of cervical cancer History of ovarian cancer Hyperlipidemia Hypertension Insomnia missing (R) ear from Morbid obesity due to excess calories Obesity Obstructive sleep apnea Restless leg syndrome Sleep apnea Status post coronary artery stent placement Surgical History (Updated 03/15/19 @ 11:52 by Chance (app) ID) Angioplasty of vein section Cholecystectomy (05/30/15) History of - surgery History of - surgery History of - surgery History of - surgery History of colonoscopy History of hysterectomy Status post coronary artery bypass graft ( 2002) Status post oophorectomy Family History Mother Hyperlipidemia Hypertension Father Diabetes Hyperlipidemia maternal Aunt No problems noted. Maternal Grandmother No problems noted. Maternal Grandfather` Stroke Other Hearing problem Social History (Updated 01/31/20 @ 14:49 by Shweta Kaur) Does the Patient have a Healthcare Proxy: Yes (- JOHNNY) Does Patient have a DNR?: No Does Patient have a Living Will?: Yes Does the Patient have a MOLST?: No Advance Directives on File or in chart?: No Hx Recent Travel (where): No Smoking Status: Never smoker alcohol intake: current alcohol intake frequency: holidays/special occasions only substance use type: does not use HPI Additional HPI HPI Details: 50 YO female for /u [facility] for chest pain. She has a lot of anxiety which alsogives her chest pain. Her son is and his young has been doing months of cancer treatments. Miriam and Miguel have been caring for their 8 month old and 2YO while trying to help with her Ihvfafun-Fu-Xdw with cancer. [place] had NST set up with Cardiology/Dr. Lozoya. Exam Const General: cooperative, healthy appearing and comfortable Resp Effort Inspection: normal respiratory effort Auscultation: clear to auscultation bilaterally, no rales, no rhonchi and no wheezes Cardio Rate: regular rate Rhythm: regular rhythm Heart Sounds: S1 normal, S2 normal, no gallops, no murmurs and no rubs Other: 140/90 Extrem General: no edema Assessment Plan Assessment Plan (1) Hospital discharge follow-up: Code(s): Z09 - Encounter for follow-up examination after completed treatment for conditions other than malignant neoplasm Plan - Aiden Kilpatrick, DO: [facility] for [facility] pain. Dr. Lozoya will do NST. if a problem then he would refer to [facility]. BP 140/90. Increase Metoprolol Tartrate from 12.5mg BID to 25mg BID. Anxiety is causing the chest pain. This is a nice young lady who is s/p CABG and also hx of over 20cardiac catheterizations. She has a Hakbsdgx-Nu-Rks dying of terminal sarcoma with mets, is taking care of their 8 month old and 2YO. Clonazepam made her wired. Will give Xanax 0.5mg Q4h prn anxiety. Hopefully this will keep her out of the hospital. I discussed with her not making a regular diet of them. labs prior to f/u 6 months. (2) Essential (primary) hypertension: Status: Chronic Code(s): I10 - Essential (primary) hypertension SNOMED Code(s): 02834968 Category: Medical (3) Anxiety: Status: Chronic Code(s): F41.9 - Anxiety disorder, unspecified SNOMED Code(s): 30865301 Category: Medical Orders Other Medications: Changed: From: metoprolol tartrate 12.5 mg (1/2 x 25 mg) PO BID 180 tabs 0RF To: metoprolol tartrate 25 mg PO BID 180 tabs 0RF Discontinued: hydrocodone- acetaminophen 10-300 mg (Vicodin HP) Discontinued Reason: MD Order 0.5 tabs PO Q6H PRN 10 tabs 0RF pain MDD 2 prednisone 2 tabs by mouth daily x 3 days the 1 tab daily x 3 days then stop Discontinued Reason: MD Order 20 mg PO DIRECTED 9 tabs 0RF benzonatate Discontinued Reason: MD Order 200 mg PO TID PRN 21 caps 0RF cough clonazepam [employer] #[id number] Discontinued Reason: MD Order 0.5 mg PO QDAY 30 tabs 0RF MDD 1 clonazepam Discontinued Reason: MD Order 0.5 mg PO QAM 30 tabs 2RF MDD 1 Instructions: DASH Eating Plan (GEN) Hypertension (GEN) Electronically Signed By: <Electronically signed by Aiden Kilpatrick DO> Date/Time Signed: 06/12/20 1718 Name Value Range Interpretation Code Description Data Tabitha rce(s) Supporting Document(s) ID Date Data Source [id number] 06/05/2020 06:39:00 [place] [address] CONSULTATIONNAME: FLORA Mendez ROOM#: [id number] OF : 1970 MR#: [id number] PHYS: Lisa Cobos [facility] DATE: 06/04/20CHIEF COMPLAINT: This 50-year-old white female presented with chest pain.HISTORY OF PRESENT ILLNESS:This patient presented the last time with left- sided chest pain which lasted almost 2 hours. Pain was inthe left side of the chest radiating to the left shoulder followed by weakness and sweating. She hasprevious history of chest pain. She has known history of coronary artery disease with multiplecoronary stents. She is pretty upset about her daughter who is sick.REVIEW OF SYSTEMS:The patient has known history of coronary artery disease. She denies any dizziness, syncope, visualloss, diplopia or headache. There is no orthopnea or paroxysmal nocturnal dyspnea. No chills or fever.No cough or hemoptysis. No bowel disturbance. No urinary problem. No ankle edema.MEDICATIONS:1. Effexor 75 mg daily2. Pramipexole 0.5 mg at bedtime3. Trazodone 100 mg at bedtime4. Ramipril 2.5 mg daily5. Metoprolol 25 mg pill b.i.d.6. Protonix 40 mg b.i.d.7. Aspirin 81 mg dailyPAST MEDICAL HISTORY:The patient had history of coronary artery disease, coronary bypass, multiple coronary stents,hysterectomy, oophorectomy, hyperlipidemia, diabetes.PERSONAL HISTORY:Nonsmoker.FAMILY HISTORY:Father has history of atrial fibrillation.PHYSICAL EXAMINATION:GENERAL: Moderately-built.VITAL SIGNS: Blood pressure is 140/80. Pulse is 80.HEENT: Head and eyes are normal. Pupils are normal. Fundus is normal. Mouth normal. Tongue dry. [address] [place] [address] CONSULTATIONNAME: FLORA Mendez ROOM#: [id number] OF : 1970 MR#: [id number] PHYS: Lisa Ferrara [facility] DATE: 06/04/20NECK: Supple. No lymphadenopathy. Thyroid not enlarged. Neck veins are not distended. No carotidbruits.CHEST: Symmetrical.HEART: Regular sinus rhythm. No murmur or gallop.LUNGS: Clear with no rales or rhonchi.ABDOMEN: Soft and nontender. No visceromegaly.EXTREMITIES: Normal. Peripheral pulses are palpable.NEUROLOGICAL: Normal.IMPRESSION:This patient has known history of coronary artery disease, coronary angioplasty and presented withchest pain. The patient's chest pain now is stable. She has atypical chest pain, however coronary arterydisease and myocardial ischemic cannot be ruled out. All her blood tests are stable. EKG shows regularsinus rhythm. I will do a nuclear stress test for evaluation for ischemia. She was noted to have multipleepisodes of PACS. I would advise to increase the metoprolol to 25 mg b.i.d.Thank you very much.DD: Demetrio Lozoya MD, PC 06/05/20 09:43DT: FIORELLA 06/05/20 18:25DS: Demetrio Lozoya MD, 06/11/20 12:06 2 Name Value Range Interpretation Code Description Data Tabitha rce(s) Supporting Document(s) ID Date Data Source [id number] 06/06/2020 10:48:00 [place] [address] PHONE: [phone] FAX: [phone] Name .................. : FLORA Mendez Acct Number.................. : [id number] ROOM. ................. : TR-08 Number ................... : [id number] Stay type ............. : E/R Discharge Date......... ... : Admit Date ......... : 05/22 01/08 Admit Phys .................... : GREGORY WORTHY Date of ....... : 1970 Family Phys ................... : KINGS MACIAS Phone .................. : [phone] Age ................................ : 50 Film# .................. .:[id number] Sex ................................. : F Unsigned transcriptions are preliminary reports and do not represent a medical or legal document CHEST PORTABLE [id number] COMPLETE:06/04/20 20:07 DANITA [id number] Reason(s): Chest Pain PORTABLE CHEST X-RAY: INDICATION: Chest pain. FINDINGS: A port catheter for a right subclavian port is noted. The tip is in the SVC. No portable reservoir is visualized. The lungs are otherwise clear. The cardiac silhouette is normal in size and contour. No acute osseous abnormality. IMPRESSION: No acute pulmonary process. Electronically Reviewed and Signed By Naif Kothari M.D. , 06/06/20 10:48, [facility] Transcribe Initials: DZ , Transcribe Date: 06/04/20 20:31, Dictation Date: Copy for: RHIANNON PARKER via fax Copy for: EMERGENCY DEPT via [facility] Copy for: [facility] REC Page 1 of 1 Name Value Range Interpretation Code Description Data Tabitha rce(s) Supporting Document(s) ID Date Data Source [id number] 06/06/2020 07:06:00 AM EDT [facility] Name Value Range Interpretation Code Description Data Tabitha rce(s) Supporting Document(s) BASIC METABOLIC PANEL [facility] BASIC METABOLIC PANEL Sodium [Moles/volume] in Serum or Plasma 138 mEq/L 134 - 153 [facility] Potassium [Moles/volume] in Serum or Plasma 4.6 mEq/L 3.6 - 5.0 [facility] Chloride [Moles/volume] in Serum or Plasma 103 mEq/L 98 - 107 [facility] Carbon dioxide, total [Moles/volume] in Serum or Plasma 24 MEQ/L 22 - 30 [facility] Glucose [Mass/volume] in Serum or Plasma 105 MG/DL 65 - 110 [facility]UN 16 [facility]DL 7 [facility] Creat[facility] [Mass/volume] in Serum or Plasma 0.8 MG/DL 0.7 - 1.5 [facility] BUN/CREAT 20 8 - 27 [facility] Calcium [Mass/volume] in Serum or Plasma 8.9 MG/DL 8.4 - 10.2 [facility] Anion gap 3 in Serum or Plasma 11.0 mmol/L 8.0 - 16.0 [facility] AGE 50 yrs [facility] AFR AMER GFR >60 mL/min [facility] NON-AA GFR >60 mL/min [facility] Male GFR Inter prentation 20-49 yrs >60 mL/min Normal 50-59 yrs >56 mL/min Normal 60-69 yrs >49 mL/min Normal 70-79yrs >42 mL/min Normal 80 and above >35 mL/min Normal Female GFR Interpretation 20-39 yrs >60 mL/min Normal 40-49 yrs >58 mL/min Normal 50-59 yrs >51 mL/min Normal 60-69 yrs >45 mL/min Normal 70-79 yrs >39 mL/min Normal 80 and above >32 mL/min Normal ID Date Data Source [id number] 06/06/2020 06:40:00 AM EDT [facility] Name Value Range Interpretation Code Description Data Tabitha rce(s) Supporting Document(s) CBC NO DIFF [facility] COMPLETE BLOOD COUNT Leukocytes [#/volume] in Blood by Automated count 5.7 10^3/uL 4.2 - 1 1.0 [facility] Erythrocytes [#/volume] in Blood by Automated count 4.29 10^6/uL 4. 20 - 5.40 [facility] Hemoglobin [Mass/volume] in Blood 13.5 g/dL 12.0 - 16.0 [facility] Hematocrit [Volume Fraction] of Blood by Automated count 40.0 % 3 7.0 - 47.0 [facility] Erythrocyte mean corpuscular volume [Entitic volume] by Auto mated count 93.2 fL 81.0 - 101 [facility] Erythrocyte mean corpuscular hemoglobin [Entitic mass] by Automated count 31.5 pg 27.0 - 34.0 [facility] Erythrocyte mean corpuscular hemoglobin concentration [Mass/volume] by Automated count 33.8 g/dL 31.0 - 36.0 [facility] Erythrocyte distribution width [Ratio] by Automated count 12.8 % 11.5 - 14.5 [facility] Platelets [#/volume] in Blood by Automated count 192 10^3/uL 150 - 45 0 [facility] Platelet mean volume [Entitic volume] in Blood by Automated count 10.8 fL 7.4 - 10.4 H [facility] ID Date Data Source [id number] 06/05/2020 10:09:00 [place] [address] RESPIRATORY CARE REPORT ==== ---------NAME------- NUMBER SEX AGE ADMIT DISC. XRAY# F/C MADIHA Mendez [id number] F 50 06/04/20 [id number] O/P DATE OF : 1970 M/R# [id number] PH#: [phone] LOCATION: EMERGENCY DEPT EKG [id number] COMPLE TE:06/05/20 07:33 [place] [id number] EKG [id number] COMPLETE:06/05/20 00:32 VMT [id number] PHYSICIAN: TOI Name Value Range Interpretation Code Description Data Tabitha rce(s) Supporting Document(s) ID Date Data Source [id number] 06/04/2020 06:19:00 PM EDT [facility] 1 OrderSheet [facility] Emergency Department [address] [place] [address] Phone #: ext- [phone] 06/04/2020 18:15 [facility]: [id number] Sex: F : 1970 Age: 50yWEIGHT:108.8 kg (S) HEIGHT:67 inches (S) BMI:37.6ALLERGIES: ARIPiprazole, Bentyl, Celecoxib, Fluoxetine, Gabapentin, Hydromorphone, Penicillins,Pregabalin, root beer, Statins, ZofranCHIEF COMPLAINT: chest pain, discomfortDIAGNOSIS: Atypical chest painLAB ORDERSOrder Description Priority Entered Acknowledged InitialedCBC w Diff STAT 18:40 06/04/2020 19:00 Kin Quintero RN P.A.-C;CMP STAT 18:40 06/04/2020 19:00 Kin Quintero RN P.A.-C;Lipase STAT 18:40 06/04/2020 19:00 Kin Quintero RN P.A.-C;PT/PTT STAT 18:40 06/04/2020 19:00 Kin Quintero RN P.A.-C;Troponin-T STAT 18:40 06/04/2020 19:00 Kin Quintero RN P.A.-C;TSH STAT 18:40 06/04/2020 19:00 Kin Quintero RN P.A.-C;Magnesium STAT 18:40 06/04/2020 19:00 Kin Quintero RN P.A.-C;Troponin-T STAT 20:49 06/04/2020 21:48 Aminah,(Sched 21:48 Chase Benjamin R.N.06/04/2020) P.A.-C; NOTES: 3 hr repeatDIAGNOSTIC STUDY ORDERSOrder Description Priority Entered Acknowledged InitialedChest Portable 1 STAT 18:40 06/04/2020 19:00 Wayne Quintero RN 2 OrderSheet [facility] Emergency Department [address] [place] [address] Phone #: ext- [phone] 06/04/2020 18:15 Patient: MIRIAM HINES Sex: F : 1970 Age: 50y(Oxygen?(No)) P.A.-C; Reason for Study: Chest PainMEDICATION/IV/DRIP/FLUID ORDERSOrder Description Priority Entered Acknowledged InitialedIV NS : Bolus 500 18:40 06/04/2020 19:47 Aminah,mL, then 75 mL/hr Chase Benjamin R.N. P.A.-C;Aspirin PO 18:40 06/04/2020 19:52 Aminah,Chewable 81 mg Chase Bustilloissa R.N.324 mg P.A.-C;Ativan IVP 1 mg 18:40 06/04/2020 19:50 Aminah,(HIGH ALERT Chase Benjamin R.N.MEDICATION) P.A.- C;Ofirmev IV 1000 mg 20:22 06/04/2020 20:31 Aminah,(NOW x1, Infuse Chase Bustilloissa R.N.over 15 minutes) P.A.-C;NitroGLYCERIN 20:24 06/04/2020 Initialed: 20:37 Aminah, Cassidy R.N.Topical Ointment Chase Robison Refused: 20:37 NitroGLYCERIN Topical0.5 in. P.A.-C; Ointment 0.5 in. was refused by patient because of Migraine trigger per patient.Ativan IVP 0.5 mg 22:27 06/04/2020 22:43 Rashaad(HIGH ALERT Chase Ponce RNMEDICATION) P.A.-C;GENERAL ORDERSOrder Description Priority Entered Acknowledged InitialedBlood Pressure 18:40 06/04/2020 18:41 [place] ED[facility] Miranda Palencia P.A.-C; [id number] Monitor 18:40 06/04/2020 18:41 [place] ED(continuous) Miranda Palencia P.A.-C; [id number] 18:40 18:41 [place] [facility] Miranda Palencia P.A.-C; [id number] 18:40 06/04/2020 19:00 KinBina betancourt RN P.AReddy-C;Obtain Old EKG 18:40 06/04/2020 19:00 Kin Chase Quintero RN P.A.-C; 3 OrderSheet [facility] Emergency Department [address] [place] [address] Phone #: ext- [phone] 06/04/2020 18:15 Patient: MIRIAM HINES Sex: F : 1970 Age: 50yObtain Old Records 18:40 06/04/2020 19:00 KinBina Quintero RN P.A.-C;Pulse oximeter 18:40 06/04/2020 19:00 Kin(Continuous) Chase Quintero RN P.A.-C;Saline Lock 18:40 06/04/2020 19:52 Chase Burr R.N., P.A.-C;Vitals 18:40 06/04/2020 19:00 Kin Quintero RN P.A.-C;[Electronically signed by Cassidy Burr R.N. (23:54 06/04/2020)][Electronically signed by Chase Robison P.A.-C (12:50 06/05/2020)][Electronically locked by Cassidy Burr R.N. (23:54 06/04/2020)] Name Value Range Interpretation Code Description Data Tabitha rce(s) Supporting Document(s) ID Date Data Source [id number] 06/04/2020 06:19:00 PM EDT [facility] 1 Medication Reconciliation Report [facility] Emergency Department [address] [place] [address] Phone #: ext- [phone] 06/04/2020 18:15 Patient: MIRIAM HINES Sex: F : 1970 Age: 50yWeight: 108.8 kgHeight/Length: 67 in.BMI: 37.6ALLERGIES: ARIPiprazole, Bentyl, Celecoxib, Fluoxetine, Gabapentin, Hydromorphone, Penicillins,Pregabalin, root beer, Statins, ZofranThe patient's Home Medications are listed below:THE FOLLOWING MEDICATIONS NEED TO BE RECONCILED: amLODIPine Besylate Oral 5 mg, daily Aspirin Oral (81 mg), daily busPIRone HCl Oral 15 mg, 2x a day Fish Oil Oral Metoprolol Tartrate Oral (25 mg) 1/2 tablet, 2x a day Pramipexole Dihydrochloride Oral 0.5 mg, at bedtime Protonix Oral 40 mg, 2x a day Ramipril Oral 2.5 mg, daily Sotalol HCl Oral 80 mg, 2x a day traZODone HCl Oral 100 mg, daily Venlafaxine HCl ER Oral (75 mg), dailyThe source(s) of the original Home Medication information:patientThe following Medications were given to the patient in the Emergency Department:IV NS IV Fluids bolus 0, then 1000 mL/hr, administered: 06/04/2020 7:47:00 PM 2 Medication Reconciliation Report [facility] Emergency Department [address] [place] [address] Phone #: ext- [phone] 06/04/2020 18:15 Patient: MIRIAM HINES Sex: F : 1970 Age: 50yAtivan [IVP] IVP 1 mg, administered: 06/04/2020 7:50:00 PMASPIRIN CHEWABLE 81 MG [PO] PO 324 mg, administered: 06/04/2020 7:52:00 PMOfirmev IV bolus 0, then 1000, administered: 06/04/2020 8:31:00 PMAtivan [IVP] IVP 0.5 mg, administered: 06/04/2020 10:43:00 PMThe following Medications were prescribed to the patient:None. Name Value Range Interpretation Code Description Data Tabitha rce(s) Supporting Document(s) ID Date Data Source [id number] 06/04/2020 06:19:00 PM EDT [facility] 1 Medication Administration Record [facility] Emergency Department [address] [place] [address] Phone #: ext- [phone] 06/04/2020 18:15 Patient: MIRIAM HINES Sex: F : 1970 Age: 50yWeight: 108.8 kgHeight/Length: 67 inBMI: 37.6ALLERGIES: ARIPiprazole, Bentyl, Celecoxib, Fluoxetine, Gabapentin, Hydromorphone, Penicillins, Pregabalin, root beer,Statins, Zofran Date/Time Medication Administered Medication OrderedStart IV NS IV NS : Bolus 500 mL, then 7519:47 06/04/2020 Dose: IV Fluids mL/hrCassidy Burr, R.N. Rate: 1000 mL/hr---- Dispensed: 1000 mL bagStop Site: #1 left [id number] 06/04/2020Cassidy Burr, R.N.Given ASPIRIN CHEWABLE 81 MG [PO] Aspirin PO Chewable 81 mg 04972:52 06/04/2020 Dose: 324 mg Tablets PO mgCassidy Burr, R.N.Given ATIVAN [IVP] (LORAZEPAM) Ativan IVP 1 mg (HIGH ALERT19:50 06/04/2020 Dose: 1 mg IVP MEDICATION)Cassidy Burr R.N. Site: #1 left forearmStart Ofirmev * Ofirmev IV 1000 mg (NOW x1,20:31 06/04/2020 Dose: 1000 * IV Inf use over 15 minutes)Cassidy Burr R.N.Given ATIVAN [IVP] (LORAZEPAM) Ativan IVP 0.5 mg (HIGH ALERT22:43 06/04/2020 Dose: 0.5 mg IVP MEDICATION)Rashaad Ponce RN Site: #1 left forearm Name Value Range Interpretation Code Description Data Tabitha rce(s) Supporting Document(s) ID Date Data Source [id number] 06/04/2020 06:19:00 PM EDT [facility] 1 General Instructions [facility] Emergency Department [address] [place] [address] Phone #: ext- [phone] 06/04/2020 18:15 Patient: MIRIAM HINES Sex: F : 1970 Age: 50yAtypical chest pain ADDITIONAL INFORMATIONUncertain Causes of Chest PainChest pain can happen for a number of reasons. Sometimes the cause can't be determined. Ifyour condition does not seem serious, and your pain does not appear to be coming from your heart,your healthcare provider may recommend watching it closely. Sometimes the signs of a seriousproblem take more time to appear. Many problems not related to your heart can cause chest pain.These include: Musculoskeletal. Costochondritis is an inflammation of the tissues around the ribs that can occur from trauma or overuse injuries, or a strain of the muscles of the chest wall Respiratory. Pneumonia, collapsed lung (pneumothorax), or inflammation of the lining of the chest and lungs (pleurisy) 2 General Instructions [facility] Emergency Department [address] [place] [address] Phone #: ext- [phone] 06/04/2020 18:15 Patient: MIRIAM HINES Sex: F : 1970 Age: 50y Gastrointestinal. Esophageal reflux, heartburn, ulcers, or gallbladder disease Anxiety and panic disorders Nerve compression and inflammation Rare miscellaneous problems such as aortic aneurysm (a swelling of the large artery coming out of the heart) or pulmonary embolism (a blood clot in the lungs)Home careAfter your visit, follow these recommendations: Rest today and avoid strenuous activity. Take any prescribed medicine as directed. Be aware of any recurrent chest pain and notice any changesFollow-up careFollow up with your healthcare provider if you do not start to feel better within 24 hours, or as advised.Call [phone] if any of these occur: A change in the type of pain: if it feels different, becomes more severe, lasts longer, or begins to spread into your shoulder, arm, neck, jaw or back Shortness of breath or increased pain with breathing Weakness, dizziness, or fainting Rapid heart beat Crushing sensation in your chestWhen to seek medical adviceCall your healthcare provider right away if any of the following occur: Cough with dark colored sputum (phlegm) or blood Fever of 100.4F (38C) or higher, or as directed by your healthcare provider Swelling, pain or redness in one leg [id number] [employer]. [address] [place] [address]. All rights reserved. 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 Always follow your healthcare professional's instructions. You have been given the following additional information: Chest Pain, Uncertain Cause(Electronically signed by Chase Robison P.A.-C 06/05/2020 12:50) Name Value Range Interpretation Code Description Data Tabitha rce(s) Supporting Document(s) ID Date Data Source [id number] 06/04/2020 06:19:00 PM EDT [facility] 1 Clinical Report - Nurses [facility] Emergency Department [address] [place] [address] Phone #: ext- [phone] 06/04/2020 18:15 Patient: MIRIAM HINES Sex: F : 1970 Age: 50yTRIAGEArrived by private vehicle. Historian: patient. Accompanied by family. ( presents with c/o L sided chestpain that radiates down L arm and into L jaw area, took 3 NTG without relief, states she didn't feel wellwhen she woke up this am but pain didn't start until 2pm).Triage time: 18:19 06/04/2020. Acuity: LEVEL 2.Chief Complaint: CHEST PAIN.Alert. No acute distress.This started today. The patient has had nausea. 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 Sepsis Screen negative. No suspected or confirmed signs ofinfection present. --18:25 06/04/20 Aye Mei RN18:06/04/20. BP: 138/88. MAP: 104. HR: 81. RR: 23. O2 saturation: 97%. Temp: 98.3 F. Pain levelnow: 7/10. --18:25 06/04/20 Aye Mei RN.Weight: 108.8 kg stated. Height/Length: 67 inches Per Patient. BMI: 37.6. --18:24 06/04/20 Aye Mei RN.MedicationsAspirin Oral (Tablet Chewable 81 mg), daily. --18:06/04/20 Aye Mei RN Protonix Oral 40 mg, 2x a day. --18:06/04/20 Aye Mei RN Sotalol HCl Oral 80 mg, 2x a day. --18:06/04/20 Aye Mei RN amLODIPine Besylate Oral 5 mg, daily. --18:06/04/20 Aye Mei RN Metoprolol Tartrate Oral (Tablet 25 mg) 1/2 tablet, 2x a day. --18:06/04/20 Aye Mei RN busPIRone HCl Oral 15 mg, 2x a day. --18:06/04/20 Aye Mei RN Ramipril Oral 2.5 mg, daily. --18:06/04/20 Aye Mei RN traZODone HCl Oral 100 mg, daily. --18:06/04/20 Aye Mei RN Pramipexole Dihydrochloride Oral 0.5 mg, at bedtime. --18:06/04/20 Aye Mei RN Venlafaxine HCl ER Oral (Tablet Extended Release 24 Hour 75 mg), daily. --18:06/04/20 Aye Mei RN Fish Oil Oral. --18:06/04/20 Aye Mei RN.AllergiesARIPiprazole.Bentyl.Celecoxib. 2 Clinical Report - Nurses [facility] Emergency Department [address] [place] [address] Phone #: ext- [phone] 06/04/2020 18:15 Patient: MIRIAM HINES Sex: F : 1970 Age: 50yFluoxetine.Gabapentin.Hydromorphone.Penicillins.Pregabalin.root beer.Statins.Zofran. --18:30 06/04/20 Aye Mei RN.PROBLEMS:Unstable Angina. --18:21 06/04/20 Aye Mei RNThe following entry was modified by Aye Mei RN, 18:21 06/04/20leep Apnea. --18:21 06/04/20 Aye Mei RNThe following entry was modified by Aye Mei RN, 18:21 06/04/20Hidradenitis Suppurativa. --18:21 06/04/20 Aye Mei RNThe following entry was modified by Aye Mei RN, 18:21 06/04/20Hypercholesterolemia. --18:21 06/04/20 Aye Mei RNThe following entry was modified by Aye Mei RN, 18:21 06/04/20Irritable bowel syndrome (disorder). --18:21 06/04/20 Aye Mei RNThe following entry was modified by Aye Mei RN, 18:21 06/04/20Migraine Headache. --18:21 06/04/20 Aye Mei RNThe following entry was modified by Aye Mei RN, 18:21 06/04/20Hypertension. --18:21 06/04/20 Aye Mei RNThe following entry was modified by Aye Mei RN, 18:21 06/04/20Insomnia. --18:21 06/04/20 Aye Mei RNThe following entry was modified by Aye Mei RN, 18:26 06/04/20Irritable bowel syndrome (disorder). --18:26 06/04/20 Aye Mei RNThe following entry was modified by Aye Mei RN, 18:26 06/04/20Migraine Headache. --18:26 06/04/20 Aye Mei RNThe following entry was modified by Aye Mei RN, 18:26 06/04/20Hypertension. --18:26 06/04/20 Aye Mei RNThe following entry was modified by Aye Mei RN, 18:06/04/20Insomnia. --18:06/04/20 Aye Mei RNThe following entry was modified by Aye Mei RN, 18:06/04/20leep Apnea. --18:06/04/20 Aye Mei RNThe following entry was modified by Aye Mei RN, 18:06/04/20Hidradenitis Suppurativa. --18:06/04/20 Aye Mei RNThe following entry was modified by Aye Mei RN, 18:06/04/20Hypercholesterolemia. --18:06/04/20 Aye Mei RNThe following entry was modified by Aye Mei RN, 18:06/04/20Irritable bowel syndrome (disorder). --18:06/04/20 Aye Mei RNThe following entry was modified by Aye Mei RN, 18:06/04/20Migraine Headache. --18:06/04/20 Aye Mei RN 3 Clinical Report - Nurses [facility] Emergency Department [address] [place] [address] Phone #: ext- [phone] 06/04/2020 18:15 Patient: MIRIAM HINES [facility]#: [id number] Sex: F : 1970 Age: 50yThe following entry was modified by Aye Mei RN, 18:06/04/20Hypertension. --18:06/04/20 Aye Mei RNThe following entry was modified by Aye Mei RN, 18:06/04/20Insomnia. --18:06/04/20 Aye Mei RN.Medication/allergy information source: the patient and patient's previous visit record. --18:06/04/20Brown, Aye, RN.ADDITIONAL SURGERIES:10 angioplasty.6 coronary stents.Cardiac Catheterization (X286 sditvl01 angioplasty).Carpal Tunnel Surgery (Right).Cholecystectomy.Coronary Artery Bypass Graft..Hysterectomy.La paroscopy.Salpingectomy. --18:22 06/04/20 Aye Mei RN.HistoryPAST MEDICAL HX: Has had a hysterectomy.SOCIAL HX: Never smoker. Occasional alcohol use. No drug use. The patient was offered HIV testingbut declined and hepatitis C testing but declined. The patient has not traveled outside the [place]Infectious disease exposure: No infectious disease exposure.SELF HARM ASSESSMENT: Self harm assessment was performed. The patient answered "no" to thequestion(s) "Have you recently felt down, depressed, or hopeless?".ABUSE ASSESSMENT: No report of abuse.NUTRITIONAL RISK ASSESSMENT: The nutritional risk assessment revealed no deficiencies.FUNCTIONAL ASSESSMENT: Functional assessment: no impairments noted.LEARNING NEEDS ASSESSMENT: The learning needs assessment revealed no barriers.FALL RISK ASSESSMENT: Fall risk assessment completed. No risk factors identified.SKIN INTEGRITY ASSESSMENT: Skin integrity risk assessment completed. No skin integrity riskidentified. --18:25 06/04/20 Aye Mei RN. 4 Clinical Report - Nurses [facility] Emergency Department [address] [place] [address] Phone #: ext- [phone] 06/04/2020 18:15 Patient: MIRIAM HINES Sex: F : 1970 Age: 50yPHYSICAL [id number] 06/04/20. Ambulatory to room.GENERAL / NEURO / PSYCH: Alert. Oriented X 4. Appears in pain and anxious.RESPIRATORY: Respirations not labored. Chest nontender. Breath sounds within normal limits.CVS: Cardiac rhythm: normal sinus rhythm. Pulses within normal limits. Capillary refill less than 2seconds.GI / : Abdomen soft and nontender.EXTREMITIES: No lower extremity edema.SKIN: Skin is warm and dry. Skin is non-tender. --18:58 06/04/20 Kin Quintero RN GENERAL / NEURO / PSYCH: Alert. Oriented X 4. Appears in no acute distress. RESPIRATORY: Respirations not labored. CVS: Normal sinus rhythm noted. EXTREMITIES: No lower extremity edema. SKIN: Skin is warm and dry. Normal skin turgor. --20:00 06/04/20 Cassidy Burr R.N.NURSING PROGRESS NOTESMonitoring of patient in place. EKG time: (18:23 06/04/2020). EKG was performed by a tech and shownto the ED physician. Patient gowned. Reassurance given. Two patient identifiers checked. Bed placedin lowest position. Brakes of bed on. Patient ready for evaluation. --18:25 06/04/20 Aye Mei RN Cardiac rhythm: normal sinus rhythm; (1839). EKG time: (18:24 06/04/2020). EKG was performed by a respiratory therapist and shown to the ED physician. nsr. Checked patient name and birthdate. Blood samples drawn from the right foot by tech. (1845). Portable chest x-ray completed. Shown to the ED physician (1850). Patient gowned. Head of bed elevated 75 degrees. Call light placed in reach. Side rails up x 2. --19:01 06/04/20 Kin Quintero RN 18:51 06/04/2020 Three (3) unsuccessful IV access attempts of a Midline catheter including the left (unable to excess infusaport port keeps jumping sideways charge nurse notified). --19:16 06/04/20 Kin Quintero RN 19:32 06/04/2020 Site #1 started via IV in the left forearm with an 20g angiocath, with aseptic technique and good blood return; three attempts. Saline lock flushed with 10 mL saline (Placed with ultrasound). --19:37 06/04/20 Cassidy Burr R.N. 19:47 06/04/2020 Started bag #1 1000 mL IV Fluids IV NS; at 1000 mL/hr via site #1 via IV pump. Allergies verified and confirmed 5 rights. IV patency established. IV site checked: no pain, redness, or swelling. IV flushed thoroughly pre- and post-medication administration. Information reviewed with patient including reason for taking this medication. Verbalizes understanding. --19:47 06/04/20 Cassidy Burr R.N. 19:50 06/04/2020 Ativan (LORazepam) IVP 1 mg given via site #1. Allergies verified and confirmed 5 rights. IV patency established. IV site checked: no pain, redness, or swelling. IV flushed thoroughly pre- and post- medication administration. IVP given by RN. Information reviewed with patient including reason for taking this medication and sedative warning. Verbalizes understanding. --19:50 06/04/20 Cassidy Burr, 5 Clinical Report - Nurses [facility] Department [address] [place] [address] Phone #: ext- [phone] 06/04/2020 18:15 Patient: MIRIAM HINES Sex: F : 1970 Age: 50y R.N. 19:52 06/04/2020 ASPIRIN CHEWABLE 81 MG PO Tablets 324 mg given. Allergies verified and confirmed 5 rights. Information reviewed with patient including reason for taking this medication. Verbalizes understanding. --19:52 06/04/20 Cassidy Burr R.N. Patient identifiers checked. Call light placed in reach. Bed placed in lowest position. Brakes of bed on. --20:01 06/04/20 Cassidy Burr R.N. 20:08 06/04/20. BP: 112/69. MAP: 83. HR: 60. RR: 15. O2 saturation: 98%. --20:09 06/04/20 Miranda Gilliland ED, ER Tech1 20:31 06/04/2020 Ofirmev * IV 1000 --20:31 06/04/20 Cassidy Burr R.N. 20:37 06/04/2020 NitroGLYCERIN Topical Ointment 0.5 in. was refused by patient because of Migraine trigger per patient. --20:37 06/04/20 Cassidy Burr R.N. 22:43 06/04/2020 Ativan (LORazepam) IVP 0.5 mg given over 30 second(s) via site #1. Allergies verified and confirmed 5 rights. IV patency established. IV site checked: no pain, redness, or swelling. IV flushed thoroughly pre- and post-medication administration. IVP given by RN. Information reviewed with patient including reason for taking this medication, signs of allergic reaction, precautions and sedative warning. Verbalizes understanding. --22:43 06/04/20 Rashaad Ponce RN 23:50 06/04/2020 IV Fluids IV NS via IV site #1 Discontinued: infused upon admission. Total amount infused: 800 mL. IV patency established. IV site checked: no pain, redness, or swelling. IV flushed thoroughly. --23:53 06/04/20 Cassidy Burr R.N.DISPOSITION / DISCHARGE Report was given to a nurse via a phone call. --23:38 06/04/20 Cassidy Burr R.N. Departure time: 23:50 06/04/2020. Admitted to the Acute Inpatient Unit, Monitored. --23:52 06/04/20 Cassidy Burr R.N. 23:52 06/04/20. BP: 124/76. HR: 66. RR: 20. O2 saturation: 97%. Temp: 97.6 F. Pain level now 7/10. --23:52 06/04/20 Cassidy Burr R.N.Locked/Released at 06/04/2020 23:54 by Cassidy Burr R.N. Name Value Range Interpretation Code Description Data Tabitha rce(s) Supporting Document(s) ID Date Data Source [id number] 06/04/2020 06:19:00 PM EDT [facility] 1 Clinical Report - Physicians/Mid Levels [facility] Emergency Department [address] [place] [address] Phone #: ext- [phone] 06/04/2020 18:15 Patient: MIRIAM HINES Sex: F : 1970 Age: 50y Time Seen: 18:36 06/04/2020; initial patient contact, initial documentation. Arrived- By private vehicle. Historian- patient.HISTORY OF PRESENT ILLNESS Chief Complaint: CHEST PAIN and DISCOMFORT. This started today and is still present. It is described as pressure and tightness and it is described as located in the left chest area. At its maximum, severity described as moderate. When seen in the E.D., severity described as moderate. The patient has had nausea. No vomiting, difficulty breathing or diaphoresis. Similar symptoms previously. Patient has had similar symptoms chronically. Recent medical care: Not recently seen/assessed.REVIEW OF SYSTEMSNo fever, chills, cough, pedal edema or calf pain. No fainting episodes, headache, sore throat, blurredvision or abdominal pain. No black stools, difficulty with urination, skin rash, enlarged lymph nodes or jointpain. No bloody stools. All other systems reviewed and are negative.PAST HISTORYSee nurses notes. Coronary artery disease. Problems: Hyperlipidemia. UTI - Urinary Tract Infection. Osteoporosis. Other Disease. Degenerative Joint Disease. Chest Pain. Cardiac arrythmia. Diabetes Mellitus Type 2. Heart Disease. GI Disease. Unstable Angina. Chest Wall Pain [RuleOut]. Atypical Chest Pain [RuleOut]. Additional Surgeries: 10 angioplasty. 6 coronary stents. Cabg. Cardiac Catheterization. 2 Clinical Report - Physicians/Mid Levels [facility] Emergency Department [address] [place] [address] Phone #: ext- [phone] 06/04/2020 18:15 Patient: MIRIAM HINES Sex: F : 1970 Age: 50y Cardiac Procedures. Cardiac stents. Carpal Tunnel Surgery. Cholecystectomy. Coronary Artery Bypass Graft. . Hysterectomy. Laparoscopy. Mediport. Oophorectomy. Salpingectomy. Medications: Fish Oil Oral. Venlafaxine HCl ER Oral (Tablet Extended Release 24 Hour 75 mg), daily. Pramipexole Dihydrochloride Oral 0.5 mg, at bedtime. traZODone HCl Oral 100 mg, daily. Ramipril Oral 2.5 mg, daily. busPIRone HCl Oral 15 mg, 2x a day. Metoprolol Tartrate Oral (Tablet 25 mg) 1/2 tablet, 2x a day. amLODIPine Besylate Oral 5 mg, daily. Sotalol HCl Oral 80 mg, 2x a day. Protonix Oral 40 mg, 2x a day. Aspirin Oral (Tablet Chewable 81 mg), daily. Allergies: ARIPiprazole. Bentyl. Celecoxib. Fluoxetine. Gabapentin. Hydromorphone. Penicillins. Pregabalin. root beer. Statins. Zofran.SOCIAL HISTORYNever smoker. Occasional alcohol use. No drug use.ADDITIONAL NOTESThe nursing notes have been reviewed.PHYSICAL EXAM 3 Clinical Report - Physicians/Mid Levels [facility] Emergency Department [address] [place] [address] Phone #: ext- [phone] 06/04/2020 18:15 Patient: MIRIAM HINES [facility]#: [id number] Sex: F : 1970 Age: 50y Vital Signs: 06/04/2020 18:19 BP: 138/88. MAP: 104. HR: 81. RR: 23. O2 saturation: 97%. Temp: 98.3 F. Pain level now: 03/30. Have been reviewed. Oxygen saturation normal. Appearance: Alert. Oriented X3. No acute distress. ENT: Voice normal. CVS: Normal heart rate and rhythm. No JVD present. Pulses normal. Capillary refill normal. Strong peripheral pulses. Heart sounds normal. Pulses: right radial 2+; left radial 2+; right dorsalis pedis 2+; left dorsalis pedis 2+; right posterior tibial 2+; left posterior tibial 2+. Respiratory: Chest normal on inspection. No respiratory distress. Unlabored respirations. Lungs clear. Moderate left upper chest wall tenderness. The tenderness is well- localized and reproduces the patient's subjective complaint. Good chest movement. Breath sounds normal and equal. Abdomen: Normal inspection. Soft and nontender. Bowel sounds normal. No distention. Skin: Skin warm and dry. Extremities: Extremities exhibit normal ROM. No lower extremity edema. No calf tenderness. No lower extremity edema. Neuro: Awake. Alert. Mood/affect normal. Speech normal. No motor deficit. No sensory deficit. Psych: Cognition normal. Thought process and content normal. Insight and judgement normal.LABS, X-RAYS, AND EKGEKG: Normal sinus rhythm. NSR; ST T wave abnormality, consider anterolateral ischema, abnormalECG. Discussed and reviewed with/by attendng. (Compared to 22Str84). Chest X-ray: (Taye cabrera Neal - 06/04/2020 7:09:09 PM no port resivor. otw nad). Laboratory Tests: Troponin-T: (CELY: 06/04/2020 21:49) ( [facility] 06/04/2020 22:17) Final results Test Result Flag Units (Reference) TROPONIN T <0.01 NG/ML (0.00 - 0.10) TROPONIN T0.1 ng/ml Recommended as the clinical threshold value forTroponin T. CBC w Diff: (CELY: 06/04/2020 18:50) ( [facility] 06/04/2020 19:11) Final results Test Result Flag Units (Reference) CBC W/AUTOMATED DIFF COMPLETE BLOOD COUNT WBC 5.8 10/uL (4.2 - 11.0) RBC 4.08 L 10/uL (4.20 - 5.40) HEMOGLOBIN 13.2 g/dL (12.0 - 16.0) HEMATOCRIT 37.8 % (37.0 - 47.0) MCV 92.6 fL (81.0 - 101) MCH 32.4 pg (27.0 - 34.0) MCHC 34.9 g/dL (31.0 - 36.0) RDW 12.9 % (11.5 - 14.5) PLATELETS 272 10/uL (150 - 450) MPV 10.1 fL (7.4 - 10.4) NEUT 51.7 % (37.0 - 80.0) LYMPH 36.0 % (25.0 - 40.0) MONO 9.7 H % (3.0 - 8.0) EOS 1.4 % (0.0 - 7.0) 4 Clinical Report - Physicians/Mid Levels [facility] Emergency Department [address] [place] [address] Phone #: ext- [phone] 06/04/2020 18:15 Patient: MIRIAM HINES Sex: F : 1970 Age: 50y BASO 0.9 % (0.0 - 2.5) %IG 0.3 H % (0.0 - 0.0) %NRBC 0.0 % (0.0 - 0.0) #NEUT 2.97 10/uL (2.00 - 6.90) #LYMPH 2.07 10/uL (0.60 - 3.40) #MONO 0.56 10/uL (0.00 - 0.90) #EOS 0.08 10/uL (0.00 - 0.70) #BASO 0.05 10/uL (0.00 - 0.20) #IG 0.02 10/uL (0.00 - 0.10) #NRBC 0.00 10/uL (0.00 - 0.00) MANUAL DIFF NOT INDICATED RBC MORPH NOT INDICATEDCMP: (CELY: 06/04/2020 18:50) ( MsgRcvd 06/04/2020 19:42) Final results Test Result Flag Units (Reference) COMPREHENSIVE METABOLIC PANEL COMPREHENSIVE METABOLIC PANEL SODIUM 137 mEq/L (134 - 153) POTASSIUM 4.0 mEq/L (3.6 - 5.0) CHLORIDE 101 mEq/L (98 - 107) CO2 22 MEQ/L (22 - 30) GLUCOSE 112 H MG/DL (65 - 110) BUN 1 7 MG/DL (7 - 21) CREATININE 0.8 MG/DL (0.7 - 1.5) BUN/CREAT 21 (8 - 27) TOTAL PROTEIN 7.4 G/DL (6.3 - 8.2) ALBUMIN 4.4 G/DL (3.9 - 5.0) GLOBULIN 3.0 GM/DL (2.4 - 3.2) A/G RATIO 1.5 (0.8 - 2.0) CALCIUM 9.1 MG/DL (8.4 - 10.2) TOTAL BILI <0.7 MG/DL (0.2 - 1.3) ALKALINE PHOS 93 U/L (38 - 126) SGOT/AST 54 H U/L (5 - 40) SGPT/ALT 81 H U/L (7 - 56) ANION GAP 14.0 mmol/L (8.0 - 16.0) AGE 50 yrs NON-AA GFR >60 mL/min AFR AMER GFR >60 mL/min Male GFR Interprentation 20-49 yrs >60 mL/min Qbnrrk18-80 yrs >56 mL/min Normal 60-69 yrs >49 mL/min Normal 70-79yrs>42 mL/min Normal 80 and above > 35 mL/min Normal Female GFRInterpretation 20-39 yrs >60 mL/min Normal 40-49 yrs >58 mL/minNormal 50-59 yrs >51 mL/min Normal 60-69 yrs >45 mL/min Krvlxs09-90 yrs >39 mL/min Normal 80 and above >32 mL/min NormalLipase: (CELY: 06/04/2020 18:50) ( MsgRcvd 06/04/2020 19:29) Final results Test Result Flag Units (Reference) LIPASE 49 U/L (13 - 60)PT/PTT: (CELY: 06/04/2020 18:50) ( MsgRcvd 06/04/2020 19:56) Final results Test Result Flag Units (Reference) PROTIME 12.8 SECONDS (11.0 - 15.5) INR 0.95 (0.93 - 1.23) PTT 31.2 SECONDS (24.8 - 36.7) \\BLDo\\INR INTERPRETATION\\BLDx\\ Therapeutic range for Coumadin andrelated oral anticoagulants. -International Normalized Ratio (INR): 2.0 - 3.0 for VenousThrombosis, Pulmonary Embolus, Tissue heart valves, Acute IN Atrial Fibrillation, Valvular heart disease 5 Clinical Report - Physicians/Mid Levels [facility] Emergency Department [address] [place] [address] Phone #: ext- [phone] 06/04/2020 18:15 Patient: MIRIAM HINES Sex: F : 1970 Age: 50yand recurrent Systemic Embolism. - International Normalized Ratio (INR): 2.5 - 3.5 forMechanical Prosthetic valve.Troponin-T: (CELY: 06/04/2020 18:50) ( [facility] 06/04/2020 19:42) Final results Test Result Flag Units (Reference) TROPONIN T <0.01 NG/ML (0.00 - 0.10) TROPONIN T0.1 ng/ml Recommended as the clinical threshold value forTroponin T.TSH: (CELY: 06/04/2020 18:50) ( [facility] 06/04/2020 19:40) Final results Test Result Flag Units (Reference) TSH 0.98 uIU/mL (0.47 - 5.01)Magnesium: (CELY: 06/04/2020 18:50) ( [facility] 06/04/2020 19:29) Final results Test Result Flag Units (Reference) MAGNESIUM 2.1 MG/DL (1.7 - 2.2)Chest Portable 1 View: (CELY: 06/04/2020 18:40) ( MsgRcvd 06/04/2020 20:33) [place]s): Chest PainTRANSPORTATION: WC IV? O2? Oxygen?(No) Room: ED Exam CHEST PORTABLE [facility] [address] [place] [address] PHONE: [phone] FAX: [phone] Name .................. : FLORA Mendez Acct Number.................. : [id number] ROOM. ................. : TR-08 MR Number ................... : [id number] Stay type ............. : E/R Discharge Date......... ... : Admit Date ......... : 06/04/20 Admit Phys .................... : GREGORY WORTHY Date of ....... : 1970 Family Phys ................... : KINGS MACIAS Phone .................. : [phone] Age ................................ : 50 Film# .................. .:[id number] Sex ................................. : F Unsigned transcriptions are prel iminary reports and do not represent a medical or legal document CHEST PORTABLE [id number] COMPLETE:06/04/20 20:07 DANITA [id number] Reason(s): Chest Pain PORTABLE CHEST X-RAY: INDICATION: Chest pain. FINDINGS: A port catheter for a right subclavian port is noted. The tip is in the SVC. No portable reservoir is visualized. The lungs are otherwise clear. The cardiac silhouette is normal in size and contour. No acute osseous abnormality. IMPRESSION: No acute pulmonary process. 6 Clinical Report - Physicians/Mid Levels [facility] Emergency Department [address] [place] [address] Phone #: ext- [phone] 06/04/2020 18:15 Patient: MIRIAM HINES Sex: F : 1970 Age: 50y Electronically Reviewed and Signed By DCTNAME , SIGNDATE, [facility] Transcribe Initials: BCECA , Transcribe Date: 06/04/20 20:31, Dictation Date: <<REPDIST>> Page 1 of 1.PROGRESS AND PROCEDURESCourse of Care: VSS, NAD, AOx3, interacting well and appropriately, no use of accessory muscle, able tospeak full sentences, stable, non-toxic looking. Enter room and pt lying peacefully in bed in NAD. Patient stable. Denies any new issues, concerns, or complaints. Pt indicates that she is under alot of stress. Has a cardiac hx. PE demos NV intact b/l UE and LE. Noted reproducable pain of hte L chest wall over area of cncern. Discuss with atteding and he evals and agrees iwth ucrrent workup. Requested labs and imaigng and currnelty penidng rsutls. Reviewed labs; repeat troponin is negative. Pt has a significnat cardiac hx. Discussed with xi caro and will admit for observation. Enter room and pt lying and sleeping peacefully in bed in NAD and easily awakend. Informed pt of results and admission. Pt inquires about medicaiton for pain. Informed of ALTO. Critical care performed (90 minutes). Time includes: direct patient care, patient reassessment, coordination of patient care, interpretation of data (laboratory data, chest xrays and prior electrocardiograms), review of patient's medical records, medical consultation, family consultation regarding treatment decisions and documentation of patient care- see progress notes. Discussed case with health care provider (Gregory). Disposition: Admitted to the Acute Inpatient Unit, Monitored. UTI (catheter associated) was not present prior to admission. Pressure ulcer was not present prior to admission. Vascular infection (catheter 7 Clinical Report - Physicians/Mid Levels [facility] Emergency Department [address] [place] [address] Phone #: ext- [phone] 06/04/2020 18:15 Patient: MIRIAM HINES Sex: F : 1970 Age: 50y associated) was not present prior to admission.CLINICAL IMPRESSION Atypical chest pain(Electronically signed by Chase Robison P.A.-C 06/05/2020 12:50) Name Value Range Interpretation Code Description Data Tabitha rce(s) Supporting Document(s) ID Date Data Source [id number] 06/05/2020 07:22:00 AM EDT [facility] Name Value Range Interpretation Code Description Data Tabitha rce(s) Supporting Document(s) Magnesium [Mass/volume] in Serum or Plasma 2.2 MG/DL 1.7 - 2.2 [facility] ID Date Data Source [id number] 06/05/2020 05:39:00 AM EDT [facility] Name Value Range Interpretation Code Description Data Tabitha rce(s) Supporting Document(s) Hemoglobin A1c/Hemoglobin.total in Blood 6.3 % 4.4 - 6.1 H [facility] {A1]{HB] ID Date Data Source [id number] 06/05/2020 05:33:00 AM EDT [facility] Name Value Range Interpretation Code Description Data Tabitha rce(s) Supporting Document(s) CVE PANEL [facility] LIPID PANEL Cholesterol [Mass/volume] in Serum or Plasma 243 MG/DL 131 - 200 H [facility] Deprecated Triglyceride [Mass/volume] in Serum or Plasma 144 MG/DL 3 5 - 160 [facility] HDL 46 MG/DL 29 - 86 [facility] Cholesterol in LDL [Mass/volume] in Serum or Plasma by Direc t assay 172 mg/dL 65 - 175 [facility] Cholesterol.total/Cholesterol in HDL [Mass Ratio] in Serum o r Plasma 5.3 3.2 - 4.4 H [facility] LDL/HDL 3.74 1.47 - 3.22 H [facility] CVE RISK CHOL/HDL LDL/HDLMEN: 1/2 AVERAGE 3.43 1.00 AVERAGE 4.97 3.55 2X AVERAGE 9.55 6.25 3X AVERAGE 23.99 7.99WOMEN: 1/2 AVERAGE 3.27 1.47 AVERAGE 4.44 3.22 2X AVERAGE 7.05 5.03 3X AVERAGE 11.04 6.14 ID Date Data Source [id number] 06/05/2020 04:59:00 AM EDT [facility] Name Value Range Interpretation Code Description Data Tabitha rce(s) Supporting Document(s) BASIC METABOLIC PANEL [facility] BASIC METABOLIC PANEL Sodium [Moles/volume] in Serum or Plasma 138 mEq/L 134 - 153 [facility] Potassium [Moles/volume] in Serum or Plasma 4.0 mEq/L 3.6 - 5.0 [facility] Chloride [Moles/volume] in Serum or Plasma 102 mEq/L 98 - 107 [facility] Carbon dioxide, total [Moles/volume] in Serum or Plasma 23 MEQ/L 22 - 30 [facility] Glucose [Mass/volume] in Serum or Plasma 110 MG/DL 65 - 110 [facility] BUN 14 MG/DL 7 - 21 [facility] Creatinine [Mass/volume] in Serum or Plasma 0.7 MG/DL 0.7 - 1.5 [facility] BUN/CREAT 20 8 - 27 [facility] Calcium [Mass/volume] in Serum or Plasma 9.0 MG/DL 8.4 - 10.2 [facility] Anion gap 3 in Serum or Plasma 13.0 mmol/L 8.0 - 16.0 [facility] AGE 50 yrs [facility] AFR AMER GFR >60 mL/min [facility] NON-AA GFR >60 mL/min [facility] Male GFR Inter prentation 20-49 yrs >60 mL/min Normal 50-59 yrs >56 mL/min Normal 60-69 yrs >49 mL/min Normal 70-79yrs >42 mL/min Normal 80 and above >35 mL/min Normal Female GFR Interpretation 20-39 yrs >60 mL/min Normal 40-49 yrs >58 mL/min Normal 50-59 yrs >51 mL/min Normal 60-69 yrs >45 mL/min Normal 70-79 yrs >39 mL/min Normal 80 and above >32 mL/min Normal ID Date Data Source [id number] 06/05/2020 04:45:00 AM EDT [facility] Name Value Range Interpretation Code Description Data Tabitha rce(s) Supporting Document(s) CBC W/AUTOMATED DIFF [facility] COMPLETE BLOOD COUNT Leukocytes [#/volume] in Blood by Automated count 6.2 10^3/uL 4.2 - 1 1.0 [facility] Erythrocytes [#/volume] in Blood by Automated count 4.26 10^6/uL 4. 20 - 5.40 [facility] Hemoglobin [Mass/volume] in Blood 13.3 g/dL 12.0 - 16.0 [facility] Hematocrit [Volume Fraction] of Blood by Automated count 39.1 % 3 7.0 - 47.0 [facility] Erythrocyte mean corpuscular volume [Entitic volume] by Auto mated count 91.8 fL 81.0 - 101 [facility] Erythrocyte mean corpuscular hemoglobin [Entitic mass] by Automated count 31.2 pg 27.0 - 34.0 [facility] Erythrocyte mean corpuscular hemoglobin concentration [Mass/volume] by Automated count 34.0 g/dL 31.0 - 36.0 [facility] Erythrocyte distribution width [Ratio] by Automated count 12.9 % 11.5 - 14.5 [facility] Platelets [#/volume] in Blood by Automated count 242 10^3/uL 150 - 45 0 [facility] Platelet mean volume [Entitic volume] in Blood by Automated count 10.1 fL 7.4 - 10.4 [facility] Neutrophils/100 leukocytes in Blood by Automated count 48.4 % 37. 0 - 80.0 [facility] Lymphocytes/100 leukocytes in Blood by Manual count 40.3 % 25.0 - 40.0 H [facility] Monocytes/100 leukocytes in Blood by Automated count 9.5 % 3.0 - 8.0 H [facility] Eosinophils/100 leukocytes in Blood by Automated count 1.1 % 0.0 - 7.0 [facility] Basophils/100 leukocytes in Blood by Automated count 0.5 % 0.0 - 2.5 [facility] %IG 0.2 % 0.0 - 0.0 [facility] %NRBC 0.0 % 0.0 - 0.0 [facility] Neutrophils [#/volume] in Blood by Automated count 3.01 10^3/uL 2.00 - 6.90 [facility] Lymphocytes [#/volume] in Blood by Automated count 2.50 10^3/uL 0.60 - 3.40 [facility] Monocytes [#/volume] in Blood by Automated count 0.59 10^3/uL 0.00 - 0.90 [facility] Eosinophils [#/volume] in Blood by Automated count 0.07 10^3/uL 0.00 - 0.70 [facility] Basophils [#/volume] in Blood by Automated count 0.03 10^3/uL 0.00 - 0.20 [facility] #IG 0.01 10^3/uL 0.00 - 0.10 [facility]ital #NRBC 0.00 10^3/uL 0.00 - 0.00 [facility] MANUAL DIFF NOT INDICATED [facility] RBC MORPH NOT INDICATED [facility] spital ID Date Data Source [id number] 06/05/2020 04:45:00 AM EDT [facility] Name Value Range Interpretation Code Description Data Tabitha rce(s) Supporting Document(s) TROPONIN T <0.01 NG/ML 0.00 - 0.10 [facility] TROPONIN T0.1 ng/ml Recommended as the c linical threshold value forTroponin T. ID Date Data Source [id number] 06/04/2020 10:17:00 PM EDT [facility] Name Value Range Interpretation Code Description Data Tabitha rce(s) Supporting Document(s) TROPONIN T <0.01 NG/ML 0.00 - 0.10 [facility] TROPONIN T0.1 ng/ml Recommended as the c linical threshold value forTroponin T. ID Date Data Source [id number] 06/04/2020 07:56:00 PM EDT [facility] Name Value Range Interpretation Code Description Data Tabitha rce(s) Supporting Document(s) Prothrombin time (PT) 12.8 SECONDS 11.0 - 15.5 [facility] INR in Platelet poor plasma by Coagulation assay 0.95 0.93 - 1. 23 [facility] aPTT in Blood by Coagulation assay 31.2 SECONDS 24.8 - 36.7 [facility] \\BLDo\\INR INTERPRETATION\\BLDx\\ Therapeutic range for Coumadin and related oral anticoagulants. - International Normalized Ratio (INR): 2.0 - 3.0 for Venous Thrombosis, Pulmonary Embolus, Tissue heart valves, Acute IN Atrial Fibrillation, Valvular heart disease and recurrent Systemic Embolism. - International Normalized Ratio (INR): 2.5 - 3.5 for Mechanical Prosthetic valve. ID Date Data Source [id number] 06/04/2020 07:42:00 PM EDT [facility] Name Value Range Interpretation Code Description Data Tabitha rce(s) Supporting Document(s) TROPONIN T <0.01 NG/ML 0.00 - 0.10 [facility] TROPONIN T0.1 ng/ml Recommended as the c linical threshold value forTroponin T. ID Date Data Source [id number] 06/04/2020 07:30:00 PM EDT [facility] Name Value Range Interpretation Code Description Data Tabitha rce(s) Supporting Document(s) COMPREHENSIVE METABOLIC PANEL [facility] COMPREHENSIVE METABOLIC PANEL Sodium [Moles/volume] in Serum or Plasma 137 mEq/L 134 - 153 [facility] Potassium [Moles/volume] in Serum or Plasma 4.0 mEq/L 3.6 - 5.0 [facility] Chloride [Moles/volume] in Serum or Plasma 101 mEq/L 98 - 107 [facility] Carbon dioxide, total [Moles/volume] in Serum or Plasma 22 MEQ/L 22 - 30 [facility] Glucose [Mass/volume] in Serum or Plasma 112 MG/DL 65 - 110 H [facility] BUN 17 MG/DL 7 - 21 [facility] al Creatinine [Mass/volume] in Serum or Plasma 0.8 MG/DL 0.7 - 1.5 [facility] BUN/CREAT 21 8 - 27 [facility] al Protein [Mass/volume] in Serum or Plasma 7.4 G/DL 6.3 - 8.2 [facility] Albumin [Mass/volume] in Serum or Plasma 4.4 G/DL 3.9 - 5.0 [facility] Globulin [Mass/volume] in Serum by calculation 3.0 GM/DL 2.4 - 3.2 [facility] A/G RATIO 1.5 0.8 - 2.0 [facility] Calcium [Mass/volume] in Serum or Plasma 9.1 MG/DL 8.4 - 10.2 [facility] Bilirubin.total [Mass/volume] in Serum or Plasma <0.7 MG/DL 0.2 - 1.3 [facility] Alkaline phosphatase [Enzymatic activity/volume] in Serum or Plasma 93 U/L 38 - 126 [facility] Aspartate aminotransferase [Enzymatic activity/volume] in Serum or Plasma 54 U/L 5 - 40 H [facility] Alanine aminotransferase [Enzymatic activity/volume] in Seru m or Plasma 81 U/L 7 - 56 H [facility] Anion gap 3 in Serum or Plasma 14.0 mmol/L 8.0 - 16.0 [facility] AGE 50 yrs [facility] al NON-AA GFR >60 mL/min [facility] ital AFR AMER GFR >60 mL/min [facility] Male GFR In terprentation 20-49 yrs >60 mL/min Normal 50-59 yrs >56 mL/min Normal 60-69 yrs >49 mL/min Normal 70-79yrs >42 mL/min Normal 80 and above >35 mL/min Normal Female GFR Interpretation 20-39 yrs >60 mL/min Normal 40-49 yrs >58 mL/min Normal 50-59 yrs >51 mL/min Normal 60-69 yrs >45 mL/min Normal 70-79 yrs >39 mL/min Normal 80 and above >32 mL/min Normal ID Date Data Source [id number] 06/04/2020 07:40:00 PM EDT [facility] Name Value Range Interpretation Code Description Data Tabitha rce(s) Supporting Document(s) Thyrotropin [Units/volume] in Serum or Plasma by Detec tion limit <= 0.05 mIU/L 0.98 uIU/mL 0.47 - 5.01 [facility] ID Date Data Source [id number] 06/04/2020 07:29:00 PM EDT [facility] Name Value Range Interpretation Code Description Data Tabitha rce(s) Supporting Document(s) Magnesium [Mass/volume] in Serum or Plasma 2.1 MG/DL 1.7 - 2.2 [facility] ID Date Data Source [id number] 06/04/2020 07:29:00 PM EDT [facility] Name Value Range Interpretation Code Description Data Tabitha rce(s) Supporting Document(s) Lipase [Enzymatic activity/volume] in Serum or Plasma 49 U/L 13 - 60 [facility] ID Date Data Source [id number] 06/04/2020 07:11:00 PM EDT [facility] Name Value Range Interpretation Code Description Data Tabitha rce(s) Supporting Document(s) CBC W/AUTOMATED DIFF [facility] COMPLETE BLOOD COUNT Leukocytes [#/volume] in Blood by Automated count 5.8 10^3/uL 4.2 - 1 1.0 [facility] Erythrocytes [#/volume] in Blood by Automated count 4.08 10^6/uL 4. 20 - 5.40 L [facility] Hemoglobin [Mass/volume] in Blood 13.2 g/dL 12.0 - 16.0 [facility] Hematocrit [Volume Fraction] of Blood by Automated count 37.8 % 3 7.0 - 47.0 [facility] Erythrocyte mean corpuscular volume [Entitic volume] by Auto mated count 92.6 fL 81.0 - 101 [facility] Erythrocyte mean corpuscular hemoglobin [Entitic mass] by Automated count 32.4 pg 27.0 - 34.0 [facility] Erythrocyte mean corpuscular hemoglobin concentration [Mass/volume] by Automated count 34.9 g/dL 31.0 - 36.0 [facility] Erythrocyte distribution width [Ratio] by Automated count 12.9 % 11.5 - 14.5 [facility] Platelets [#/volume] in Blood by Automated count 272 10^3/uL 150 - 45 0 [facility] Platelet mean volume [Entitic volume] in Blood by Automated count 10.1 fL 7.4 - 10.4 [facility] Neutrophils/100 leukocytes in Blood by Automated count 51.7 % 37. 0 - 80.0 [facility] Lymphocytes/100 leukocytes in Blood by Manual count 36.0 % 25.0 - 40.0 [facility] Monocytes/100 leukocytes in Blood by Automated count 9.7 % 3.0 - 8.0 H [facility] Eosinophils/100 leukocytes in Blood by Automated count 1.4 % 0.0 - 7.0 [facility] Basophils/100 leukocytes in Blood by Automated count 0.9 % 0.0 - 2.5 [facility] %IG 0.3 % 0.0 - 0.0 [facility] %NRBC 0.0 % 0.0 - 0.0 [facility] al Neutrophils [#/volume] in Blood by Automated count 2.97 10^3/uL 2.00 - 6.90 [facility] Lymphocytes [#/volume] in Blood by Automated count 2.07 10^3/uL 0.60 - 3.40 [facility] Monocytes [#/volume] in Blood by Automated count 0.56 10^3/uL 0.00 - 0.90 [facility] Eosinophils [#/volume] in Blood by Automated count 0.08 10^3/uL 0.00 - 0.70 [facility] Basophils [#/volume] in Blood by Automated count 0.05 10^3/uL 0.00 - 0.20 [facility] #IG 0.02 10^3/uL 0.00 - 0.10 [facility] #NRBC 0.00 10^3/uL 0.00 - 0.00 [facility] MANUAL DIFF NOT INDICATED [facility] RBC MORPH NOT INDICATED [facility] ID Date Data Source [id number] 01/31/2020 02:47:00 PM EDT [facility] Patient Name: Miriam Hines : 1970 Sex: F Pt Unit #: [id number] Location:[facility] Provider: Visit Date/Time: 01/31/20 Primary Insurance: MEDICARE [employer] Secondary Insurance: Self Pay ADDENDUM Office Procedure Documentation entered by Shweta Kaur 01/31/20 17:14: EKG Office Procedure Performed by: Shweta Kaur LPN EKG read by: <Electronically signed by Shweta Kaur > Addendum Signed By: Date/Time: 01/31/20 1714 Intake Vital Signs 01/31/20 14:48 Current Height 5 ft 7 in Current Weight 249 lb 6 oz Weight Measurement Method Standing Scale BMI 39.0 BP 102/72 Blood Pressure Location Lt brachial Position Sitting Respiration 18 Pulse 67 Temp 98.5 F Temp Source Oral Pulse Oximetry (%) 98 Oxygen Delivery Method room air Intake-Medicare Annual Visit Reasons: Medicare Annual Wellness subsequent Is patient in pain?: Yes (headache,chest,backl) Pain scale (1-10): 5 Allergies morphine [Morphine] Allergy (Intermediate, Verified 02/04/19 04:50) HIVES, ITCHING hydromorpho ne HCl [From Dilaudid] Allergy (Mild, Verified 02/04/19 04:50) ITCHING aripiprazole [From ABILIFY] Adverse Reaction (Severe, Verified 02/04/19 04:50) Anxiety/Muscle Cramps ondansetron [From Zofran] Adverse Reaction (Severe, Verified 02/04/19 04:50) VOMITING ROOT BEER [ROOT BEER (food)] Adverse Reaction (Severe, Verified 02/04/19 04:50) NAUSEA,VOMITING,HIVES,PASSES OUT celecoxib [From Celebrex] Adverse Reaction (Intermediate, Verified 02/04/19 04:50) Depression duloxetine [From Cymbalta] Adverse Reaction (Intermediate, Verified 02/04/19 04:50) Depression gabapentin [From Neurontin] Adverse Reaction (Intermediate, Verified 02/04/19 04:50) GI Upset Penicillins [PENICILLINS] Adverse Reaction (Intermediate, Verified 02/04/19 04:50) Dyspnea/Diarrhea pravastatin Adverse Reaction (Intermediate, Verified 02/04/19 04:50) RUQ abdominal pain pregabalin [From LYRICA] Adverse Reaction (Intermediate, Verified 02/04/19 04:50) INCREASED DEPRESSION rosuvastatin [From Crestor] Adverse Reaction (Intermediate, Verified 02/04/19 04:50) Abdominal Cramps dicyclomine Adverse Reaction (Unknown, Verified 02/04/19 04:50) PLEASE VERIFY REACTION Feel stressed/ tense/nervous/anxious/difficulty sleeping: not at all Fall Risk History of falls: No Ambulatory Aid:: None Gait/Transferring:: Normal Medications:: Antihypertensives How often do you have a drink containing alcohol?: monthly or less How often do you have 6 or more drinks on 1 occasion?: never AUDIT-C Alcohol total score: Answ all for result. HIV testing Offer: No Requirement for HIV testing offer been met?: Declines today. 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 Allergies/Hayfever Angina pectoris Anxiety Arthritis Biliary dyskinesia (Inactive) Chronic migraine Coronary Artery Disease Depressive disorder Diabetes mellitus Diarrhea Fibromyalgia Gastroesophageal reflux disease Headache Hiatal hernia Hidradenitis suppurativa (Chronic) History of cervical cancer History of ovarian cancer Hyperlipidemia Hypertension Insomnia missing (R) ear from Morbid obesity due to excess calories Obesity Obstructive sleep apnea Restless leg syndrome Sleep apnea Status post coronary artery stent placement Surgical History (Updated 03/15/19 @ 11:52 by Chance (app) ID) Angioplasty of vein section Cholecystectomy (05/30/15) History of - surgery History of - surgery History of - surgery History of - surgery History of colonoscopy History of hysterectomy Status post coronary artery bypass graft ( 2002) Status post oophorectomy Family History Mother Hyperlipidemia Hypertension Father Diabetes Hyperlipidemia maternal Aunt No problems noted. Maternal Grandmother No problems noted. Maternal Grandfather` Stroke Other Hearing problem Social History (Updated 01/31/20 @ 14:49 by Shweta Kaur) Does the Patient have a Healthcare Proxy: Yes (- JOHNNY) Does Patient have a DNR?: No Does Patient have a Living Will?: Yes Does the Patient have a MOLST?: No Advance Directives on File or in chart?: No Hx Recent Travel (where): No Smoking Status: Never smoker alcohol intake: current alcohol intake frequency: holidays/special occasions only substance use type: does not use Medicare Annual Wellness Type Of Examation Type of Exam: Initial Wellness Exam EKG EKG Performed: No Allergies Allergies morphine [Morphine] Allergy (Intermediate, Verified 02/04/19 04:50) HIVES, ITCHING hydromorphone HCl [From Dilaudid] Allergy (Mild, Verified 02/04/19 04:50) ITCHING aripiprazole [From ABILIFY] Adverse Reaction (Severe, Verified 02/04/19 04:50) Anxiety/Muscle Cramps ondansetron [From Zofran] Adverse Reaction (Severe, Verified 02/04/19 04:50) VOMITING ROOT BEER [ROOT BEER (food)] Adverse Reaction (Severe, Verified 02/04/19 04:50) NAUSEA,VOMITING,HIVES,PASSES OUT celecoxib [From Celebrex] Adverse Reaction (Intermediate, Verified 02/04/19 04:50) Depression duloxetine [From Cymbalta] Adverse Reaction (Intermediate, Verified 02/04/19 04:50) Depression gabapentin [From Neurontin] Adverse Reaction (Intermediate, Verified 02/04/19 04:50) GI Upset Penicillins [PENICILLINS] Adverse Reaction (Intermediate, Verified 02/04/19 04:50) Dyspnea/Diarrhea pravastatin Adverse Reaction (Intermediate, Verified 02/04/19 04:50) RUQ abdominal pain pregabalin [From LYRICA] Adverse Reaction (Intermediate, Verified 02/04/19 04:50) INCREASED DEPRESSION rosuvastatin [From Crestor] Adverse Reaction (Intermediate, Verified 02/04/19 04:50) Abdominal Cramps dicyclomine Adverse Reaction (Unknown, Verified 02/04/19 04:50) PLEASE VERIFY REACTION Current Diet Current diet: regular PHQ-2/9 Over the last 2 weeks, how often have you been bothered by any of the following problems? 1. Little interest or pleasure in doing things: several days 2. Feeling down, depressed, or hopeless: several days Total score: 2 If score is 2 greater, continue 3. Trouble falling or staying asleep, or sleeping too much: more than half the days 4. Feeling tired or having little energy: several days 5. Poor appetite or overeating: not at all 6. Feeling bad about yourself - or that you are a failure or have let yourself and your family down:not at all 7. Trouble concentrating on things, such as reading the newspaper or watching television: not at all 8. Moving or speaking so slowly that other people could have noticed? - Or the opposite - being so fidgety or restless that you have been moving around a lot more than usual: not at all 9. Thoughts that you would be better off or of hurting yourself in some way: not at all Total score: 5 If you checked off any problems, how difficult have these problems made it for you to do your work, take care of things at home, or get along with other people?: not difficult at all Source: Developed by Drs. Man Del Castillo, Keisha Bauer, Honorio Reveles and colleagues, with an educational flex from [employer]. Vision [place] [facility] - right eye: 20/30 [facility] - left eye: 20/30 [facility] - bilateral eyes: 20/30 Functional Assessment Bathing: Independent Dressing: Independent Toileting: Independent Transferring: Independent Continence: Independent Feeding: Independent Total Score: 6 Home Safety Home Safety: Reports Lighting: Adequate, [place]: No throw rugs and Stairs: Handrail available; DeniesBathroom: Grab bars Hearing Hearing Left Ear: Normal Hearing Right Ear: Not tested (she has no R ear) IADL Assessment Functional abilities: Up Go test, pt steady, Up Go test, within 30 sec, Pt independent w/phone,Pt independent w/transportation, Pt independent w/shopping, Pt independent w/housework, Pt independent w/meal preparation, Pt independent w/laundry, Pt independent w/medication and Pt independent w/finances Cognitive Evaluation Oriented to the date:: Yes Oriented to time:: Yes Oriented to place:: Yes Affect: Anxious Judgement: normal Needs caregiver for assistance: No Clock drawing: Yes Clock drawing with correct time: Yes 3 item recall: 3 HPI Additional HPI HPI Details: 50 YO female with PMH listed is here for Medicare Annual Wellness. She has much anxiety from family issues today and some chest pain. CPAP broke. She also has gained weight. 11lb weightgain. Exam Const General: cooperative, healthy appearing and no acute distress HENMT Ears: right TM abnormal (no R ear) and TM normal on the left Neck Neck: no lymphadenopathy Thyroid: thyroid normal Resp Effort Inspection: normal respiratory effort Auscultation: clear to auscultation bilaterally, no rales, no rhonchi and no wheezes Cardio Rate: regular rate Rhythm: regular rhythm Heart Sounds: S1 normal, S2 normal, no gallops, no murmurs and no rubs Other: EKG: NSR with no ST elevations, depressions but +T wave inversions AVL, I, V2, V3, V4, no block, similar to EKG 02/04/19 Extrem General: no edema Psych Appearance: grossly normal Mental Status: mental status grossly normal Speech and Movement: speech and movement normal Mood: congruent mood Affect: anxious affect Attitude: cooperative Thought Process: normal Thought Content: normal Insight: insight good Judgment: judgment good Quality Reporting Depression/Bipolar (159/160/161/169/177) Total score: 5 Assessment Plan Assessment Plan (1) Medicare annual wellness visit, subsequent: Code(s): Z00.00 - Encounter for general adult medical examination without abnormal findings Plan - Aiden Kilpatrick, DO: Medicare Annual Wellness. PMH CABG and chest pain. EKG similar to 02/04/19. Chest Pain likely Anxiety. Consult [facility]. She had clean coronary catheterization 02/05/19. Anxiety. Start Clonazepam 0.5mg QAM. Melatonin 5mg QHS. Follow up 2 months. Weight Gain with A1c up to 6.3. Decrease carbs in diet and eliminate vegetable oils. Increase goodoils in diet. Hyperlipidemia with TG/HDL ratio demonstrating pattern B LDL. BRAXTON. CPAP broke a year ago. Sleep Study for titration and machine. (2) S/P coronary artery stent placement: Status: Chronic Code(s): Z95.5 - Presence of coronary angioplasty implant and graft SNOMED Code(s): 333239296 Category: Surgical (3) Diabetes mellitus type 2 in obese: Status: Chronic Code(s): E11.69 - Type 2 diabetes mellitus with other specified complication; E66.9 - Obesity, unspecified SNOMED Code(s): 23360070 Category: Medical (4) Fibromyalgia: Status: Chronic Code(s): M79.7 - Fibromyalgia SNOMED Code(s): 084933747 Category: Medical (5) Obstructive sleep apnea: Status: Chronic Code(s): G47.33 - Obstructive sleep apnea (adult) (pediatric) SNOMED Code(s): 87928353 Category: Medical (6) Chest pain: Code(s): R07.9 - Chest pain, unspecified (7) Weight gain: Code(s): R63.5 - Abnormal weight gain PHQ-9 Over the last 2 weeks, how often have you been bothered by any of the following problems? 1. Little interest or pleasure in doing things: several days 2. Feeling down, depressed, or hopeless: several days 3. Trouble falling or staying asleep, or sleeping too much: more than half the days 4. Feeling tired or having little energy: several days 5. Poor appetite or overeating: not at all 6. Feeling bad about yourself - or that you are a failure or have let yourself and your family down:not at all 7. Trouble concentrating on things, such as reading the newspaper or watching television: not at all 8. Moving or speaking so slowly that other people could have noticed? - Or the opposite - being so fidgety or restless that you have been moving around a lot more than usual: not at all 9. Thoughts that you would be better off or of hurting yourself in some way: not at all Total score: 5 If you checked off any problems, how difficult have these problems made it for you to do your work, take care of things at home, or get along with other people?: not difficult at all Source: Developed by Drs. Man Del Castillo, Keisha Bauer, Honorio Reveles and colleagues, with an educational flex from [employer]. Electronically Signed By: <Electronically signed by Aiden Kilpatrick DO> Date/Time Signed: 01/31/20 1623 Name Value Range Interpretation Code Description Data Tabitha rce(s) Supporting Document(s) ID Date Data Source [id number] 01/30/2020 11:38:00 AM EDT [facility] Name Value Range Interpretation Code Description Data Tabitha rce(s) Supporting Document(s) Urine Random Creatinine 141.0 mg/dL [facility] THERE IS NO ESTABLISHED RANGE FOR RANDOM URINE CREATININE Urine Microalbumin 11.7 mg/L 0.0-29.9 N [facility] Ur Malb/Cre Ratio (ACR) 8.2 ug/mg 0.0-30.0 [facility] ID Date Data Source [id number] 01/30/2020 10:44:00 AM EDT [facility] Name Value Range Interpretation Code Description Data Tabitha rce(s) Supporting Document(s) Leukocytes [#/volume] in Blood by Automated count 5.3 10*3/uL 4.45-10 .71 [facility] Erythrocytes [#/volume] in Blood by Automated count 4.25 10*6/uL 4.20 -5.40 [facility] Hemoglobin [Moles/volume] in Blood 13.7 g/dL 10.7-15.4 [facility] Hematocrit [Volume Fraction] of Blood by Automated count 39.9 % 3 7-47 N [facility] Erythrocyte mean corpuscular volume [Ent itic volume] in Cord blood by Automated count 93.9 fL 80-96 N [facility] ital Erythrocyte mean corpuscular hemoglobin [Entitic mass] by Automated count 32.2 pg 27-31 Above high normal [facility] spital Erythrocyte mean corpuscular hemoglobin concentration [Mass/volume] in Cord blood 34.3 g/dL 33-37 N [facility] ital Erythrocyte distribution width [Entitic volume] by Automated count 13 % 11-15 [facility] Platelets [#/volume] in Blood by Automated count 266 10*3/uL 130-472 N [facility] Platelet mean volume [Entitic volume] in Blood 10.2 fL 9.1-13.1 N [facility] Neutrophils/100 leukocytes in Blood by Automated count 53.1 % 41- 77 [facility] Neutrophils [#/volume] in Blood by Automated count 2.8 U 1.7-7.6 [facility] Lymphocytes/100 leukocytes in Blood by Automated count 35.0 % 14- 46 [facility] Lymphocytes [#/volume] in Blood by Automated count 1.9 U 0.6-4.6 N [facility] Monocytes/100 leukocytes in Blood by Automated count 9.8 % 4-12 N [facility] Monocytes [#/volume] in Blood by Automated count 0.5 U 0.2-1.2 N [facility] Eosinophils/100 leukocytes in Blood by Automated count 1.3 % 0-7 N [facility] Eosinophils [#/volume] in Blood by Automated count 0.1 U 0.0-0.5 N [facility] Basophils/100 leukocytes in Blood by Automated count 0.6 % 0.4-1 .3 N [facility] Basophils [#/volume] in Blood by Automated count 0.0 U 0.0-0.2 N [facility] NUCLEATED RED BLOOD CELL 0 % [facility] NUCLEATED RED BLOOD CELL# 0 U [facility] Immature granulocytes [Presence] in Blood by Automated count 0-2 N [facility] Immature granulocytes [#/volume] in Blood by Automated count 0.0 U 0-0.1 N [facility] Manual Differential panel - Blood NO [facility] ID Date Data Source [id number] 01/30/2020 11:05:00 AM EDT [facility] Name Value Range Interpretation Code Description Data Tabitha rce(s) Supporting Document(s) Hemoglobin A1c % 6.3 % 4.0-6.0 Above high normal L [facility] The following ranges may be u sed for interpretation of results: HGBA1C degree of glucose control: Greater than 8%: Action Suggested * Less than 7%: Goal of Diabetic Therapy Less than 6%: NormalFactors such as duration of diabetes, adherence to therapyand the age of the patient should also be considered inassessing the degree of blood glucose control.* High risk of developing [facility] complications such asretinopathy, nephropathy, neuropathy, cardiopathy, etc. Some danger of hypoglycemic reaction in Type I diabetics.Some glucose intolerant individuals and "Sub Clinical"diabetics may demonstrate HGBA1C levels in this area. Glucose mean value [Moles/volume] in Blood Estimated f rom glycated hemoglobin 134 mg/dL [facility] An A1C of 7% - the goal of diabetic ther apy - is equivalentto an EAG of 154 mg/dl. ID Date Data Source [id number] 01/30/2020 11:31:00 AM EDT [facility] Name Value Range Interpretation Code Description Data Tabitha rce(s) Supporting Document(s) Urea nitrogen [Mass/volume] in Serum or Plasma 14 mg/dL 9-23 N [facility] Sodium [Moles/volume] in Serum or Plasma 141 mmol/L 132-146 N [facility] Potassium [Moles/volume] in Serum or Plasma 4.3 mmol/L 3.5-5.5 N [facility] Chloride [Moles/volume] in Serum or Plasma 107 mmol/L 99-109 N [facility] Carbon dioxide, total [Moles/volume] in Serum or Plasma 24 mmol/L 20 -31 N [facility] Anion gap in Serum or Plasma 14 mmol/L 8-16 N [facility] Glucose [Mass/volume] in Serum or Plasma 102 mg/dL 74-106 N [facility] Creatinine 0.8 mg/dL 0.5-1.1 N [facility] Glomerular filtration rate/1.73 sq M.pre dicted [Volume Rate/Area] in Serum or Plasma Greater Than 60 ABOVE 60 [facility] Alanine aminotransferase [Enzymatic acti vity/volume] in Serum or Plasma by With P-5'-P 115 U/L 10-49 Above high normal [facility] Aspartate aminotransferase [Enzymatic ac tivity/volume] in Serum or Plasma by With P-5'-P 75 U/L 0-33 Above high normal [facility] Alkaline phosphatase [Enzymatic activity/volume] in Serum or Plasma 92 U/L 45-129 N [facility] Calcium [Mass/volume] in Serum or Plasma 9.3 mg/dL 8.5-10. 1 No range defined, or normal ranges don't apply [facility] Repeated by: Stanislaw Gonzales 01/30/20 1131.R esult Confirmation: 9.1 mg/dL Bilirubin.total [Mass/volume] in Serum or Plasma 0.4 mg/dL 0.3-1.2 [facility] Albumin [Mass/volume] in Serum or Plasma by Bromocresol purple (BCP) dye binding method 4.0 g/dL 3.2-4.8 [facility] ital Protein [Mass/volume] in Serum or Plasma 7.2 g/dL 5.7-8.2 N [facility] ID Date Data Source [id number] 01/30/2020 11:31:00 AM EDT [facility] Name Value Range Interpretation Code Description Data Tabitha rce(s) Supporting Document(s) Triglycerides 191 mg/dL 0-150 Above high normal [facility] Cholesterol 257 mg/dL 120-200 Above high normal [facility] HDL Cholesterol 43 mg/dL [facility] HDL Less than 40 mg/dL: Major risk for CHDHDL Greater than 59 mg/dL: Low risk for CHD LDL Cholesterol, Calc 176 mg/dL 0-100 Above high normal [facility] ID Date Data Source [id number] 01/30/2020 11:31:00 AM EDT [facility] Name Value Range Interpretation Code Description Data Tabitha rce(s) Supporting Document(s) Thyrotropin [Units/volume] in Serum or Plasma by Detec tion limit <= 0.005 mIU/L 0.84 u[iU]/mL 0.35-5.50 [facility] Date Data Source [id number] 09/20/2019 01:22:00 [place] [address] RESPIRATORY CARE REPORT ==== ---------NAME------- NUMBER SEX AGE ADMIT DISC. XRAY# F/C TYPEDOLISANDRO MIRIAM Mendez [id number] F 49 09/19/19 09/19/19 [id number] MB4 E/R DATE OF : 1970 M/R# [id number] #: [id number] TR-1B LOCATION: EMERGENCY DEPT EKG [id number] COMP LETE:09/20/19 08:39 [place] [address] PHYSICIAN: ARIELLA Tao Name Value Range Interpretation Code Description Data Tabitha rce(s) Supporting Document(s) ID Date Data Source [id number] 09/20/2019 09:25:00 AM EST [facility] [address] [place] [address] PHONE: [phone] FAX: [phone] Name .................. : FLORA Mendez Acct Number.................. : [id number] ROOM. ................. : TR-1B MR Number ................... : [id number] Stay type ............. : E/R Discharge Date......... ... : 09/19/19 Admit Date ......... : 09/19/19 Admit Phys .................... : ARIELLA Tao Date of ....... : 1970 Family Phys ................... : KINGS MACIAS Phone .................. : [phone] Age ................................ : 49 Film# .................. .:[id number] Sex ................................. : F Unsigned transcriptions are preliminary reports and do not represent a medical or legal document CHEST 2 VIEWS [id number] COMPLETE:09/19/19 19:31 [facility] [address] Reason(s): right lower chest pain CHEST X-RAY: 2-VIEWS COMPARISON: 09/05/19 FINDINGS: The cardiac and mediastinal silhouettes appear normal and the lungs are clear. The bones and soft tissues are normal. The upper abdomen is unremarkable. Mediport catheter tip is at the cavoatrial junction. IMPRESSION: No acute disease identifiable. Electronically Reviewed and Signed By Timothy Maciel MD , 09/20/19 09:25, KGG Transcribe Initials: DZ , Transcribe Date: 09/20/19 05:34, Dictation Date: Copy for: EMERGENCY DEPT via modem Copy for: 710 MED REC DIS CHARGED Page 1 of 1 Name Value Range Interpretation Code Description Data Tabitha rce(s) Supporting Document(s) ID Date Data Source [id number] 09/19/2019 06:57:00 PM EST [facility] 1 OrderSheet [facility] Emergency Department [address] [place] [address] Phone #: ext- [phone] 09/19/2019 18:25 Patient: MIRIAM HINES Sex: F : 1970 Age: 49yWEIGHT:104.3 kg (S) HEIGHT:67 inches (S) BMI:36.0 STATUS:NoALLERGIES: ARIPiprazole, Bentyl, Celecoxib, Fluoxetine, Gabapentin, Hydromorphone, Penicillins,Pregabalin, root beer, Statins, ZofranDIAGNOSIS: Atypical chest pain, Chest wall painLAB ORDERSOrder Description Priority Entered Acknowledged InitialedCBC w Diff STAT 19:19 09/19/2019 Ack'd: 19:21 19:21 Gela Pearson Lingappa Crystal Walters R.N. M.D.; RNCMP STAT 19:19 09/19/2019 Ack'd: 19:21 19:21 Gela Pearson Lingappa Crystal Walters R.N. M.D.; RNCPK STAT 19:19 09/19/2019 Ack'd: 19:21 19:21 Gela Pearson Lingappa Crystal Walters R.N. M.D.; RND-Dimer STAT 19:19 09/19/2019 Ack'd: 19:21 19:21 Gela Pearson Lingappa Crystal Walters R.N. M.D.; RNLipase STAT 19:19 09/19/2019 Ack'd: 19:21 19:21 Gela Pearson Lingappa Crystal Walters R.N. M.D.; RNTroponin-T STAT 19:19 09/19/2019 Ack'd: 19:21 19:21 Gela Pearson Lingappa Crystal Walters R.N. M.D.; RNUrinalysis (Clean STAT 19:48 09/19/2019 19:49 CrystalCatch) Ross Parnell RN RN; Verbal order per ( Verbal order read back and verified ); Lourdes Krishnan M.D. 2 OrderSheet [facility] Emergency Department [address] [place] [address] Phone #: ext- [phone] 09/19/2019 18:25 Patient: MIRIAM HINES Sex: F : 1970 Age: 49yDIAGNOSTIC STUDY ORDERSOrder Description Priority Entered Acknowledged InitialedChest 2 View STAT 19:19 09/19/2019 Ack'd: 19:22 19:21 Gela Pearson(Oxygen?(No)) Lourdes Krishnan R.N., M.D.; RN Reason for Study: right lower chest painMEDICATION/IV/DRIP/FLUID ORDERSOrder Description Priority Entered Acknowledged InitialedToradol IM 30 mg 19:19 09/19/2019 19:47 Ross(NOW x1) Lourdes Krishnan RN, M.D.;GENERAL ORDERSOrder Description Priority Entered Acknowledged InitialedEKG 19:19 09/19/2019 19:45 Lourdes Grey RN, M.D.;[Electronically signed by Ross Parnell RN (21:48 9)][Electronically signed by Lourdes Krishnan M.D. (06:47 09/20/2019)][Electronically locked by Ross Parnell RN (21:48 09/19/2019)] Name Value Range Interpretation Code Description Data Tabitha rce(s) Supporting Document(s) ID Date Data Source [id number] 09/19/2019 06:57:00 PM EST [facility] 1 Medication Reconciliation Report [facility] Emergency Department [address] [place] [address] Phone #: ext- [phone] 09/19/2019 18:25 Patient: MIRIAM HINES Sex: F : 1970 Age: 49yWeight: 104.3 kgHeight/Length: 67 in.BMI: 36.0ALLERGIES: ARIPiprazole, Bentyl, Celecoxib, Fluoxetine, Gabapentin, Hydromorphone, Penicillins,Pregabalin, root beer, Statins, ZofranThe patient's Home Medications are listed below:THE FOLLOWING MEDICATIONS NEED TO BE RECONCILED: amLODIPine Besylate Oral Aspirin Oral busPIRone HCl Oral Doxycycline Oral Fish Oil Oral Metoprolol Tartrate Oral Multivitamins Oral Pantoprazole Sodium Oral Pramipexole Dihydrochloride Oral Ramipril Oral Sotalol HCl Oral Tessalon Perles Oral traZODone HCl Oral Venlafaxine HCl ER Oral Vicodin Oral 2 Medication Reconciliation Report [facility] Emergency Department [address] [place] [address] Phone #: ext- [phone] 09/19/2019 18:25 Patient: MIRIAM HINES Sex: F : 1970 Age: 49yThe source(s) of the original Home Medication information:Not obtained.The following Medications were given to the patient in the Emergency Department:Toradol [IM] I M 30 mg, administered: 09/19/2019 7:32:00 PMThe following Medications were prescribed to the patient:None. Name Value Range Interpretation Code Description Data Tabitha rce(s) Supporting Document(s) ID Date Data Source [id number] 09/19/2019 06:57:00 PM [place] [address] Medication Administration Record [facility] Emergency Department [address] [place] [address] Phone #: ext- [phone] 09/19/2019 18:25 Patient: MIRIAM HINES Sex: F : 1970 Age: 49yWeight: 104.3 kgHeight/Length: 67 inBMI: 36ALLERGIES: Pregabalin, ARIPiprazole, Fluoxetine, Hydromorphone, Celecoxib, root beer, Zofran, Gabapentin, Penicillins,Statins, Bentyl Date/Time Medication Administered Medication OrderedGiven TORADOL [IM] (KETOROLAC Toradol IM 30 mg (NOW x1)19:32 09/19/2019 TROMETHAMINE)Ross Parnell RN Dose: 30 mg IM Name Value Range Interpretation Code Description Data Tabitha rce(s) Supporting Document(s) ID Date Data Source [id number] 09/19/2019 06:57:00 PM [facility] 1 General Instructions [facility] Emergency Department [address] [place] [address] Phone #: ext [phone] 09/19/2019 18:25 Patient: MIRIAM HINES [facility]#: [id number] Sex: F : 1970 Age: 49yAtypical chest painINSTRUCTIONSNo strenuous activity. Rest.Avoid stimulants (such as cigarettes, coffee, cold medicines, sinus medicines, street drugs).Warnings: Further evaluation is necessary.GENERAL WARNINGS: Return or contact your physician immediately if your condition worsens orchanges unexpectedly, if not improving as expected, or if other problems arise.Follow-up:Follow up with your healthcare provider in two days if not better. Call for an appointment. Reason forreferral: evaluation and treatment. Summary of care provided to patient, family and follow-up provider viapaper.Understanding of the discharge instructions verbalized by patient and family. ADDITIONAL INFORMATIONNoncardiac Chest Pain 2 General Instructions [facility] Emergency Department [address] [place] [address] Phone #: ext- [phone] 09/19/2019 18:25 [id number] Sex[facility] : 1970 Age: 49yBased on your visit today, the healthcare provider doesn't know what is causing your chest pain. Inmost cases, people who come to the emergency department with chest pain don't have a problemwith their heart. Instead, the pain is caused by other conditions. It's important for the healthcare teamto be sure you are not having a life threatening cause for chest pain such as a heart attack, blood clotin the lungs, collapsed lung, ruptured esophagus, or tearing of the aorta. Once these major causeshave been ruled out, you may have further evaluation for non-heart causes of chest pain. These maybe problems with the lungs, muscles, bones, digestive tract, nerves, or mental health.Lung problems Inflammation around the lungs (pleurisy) Collapsed lung (pneumothorax) Fluid around the lungs (pleural effusion) Lung cancer (a rare cause of chest pain)Muscle or bone problems Inflamed cartilage between the ribs (costochondritis) Fibromyalgia Rheumatoid arthritis Chest wall strainDigestive system problems Reflux Stomach ulcer Spasms of the esophagus Gall stones Gallbladder inflammationMental health conditions Panic or anxiety attacks Emotional distressYour condition doesn't seem serious and your pain doesn't appear to be coming from your heart. Butsometimes the signs of a serious problem take more time to appear. Watch for the warning signs 3 General Instructions [facility] Emergency Department [address] [place] [address] Phone #: ext- [phone] 09/19/2019 18:25 Patient: MIRIAM HINES Sex: F : 1970 Age: 49ylisted below.Home careFollow these guidelines when caring for yourself at home: Rest today and avoid strenuous activity. Take any prescribed medicine as directed.Follow-up careFollow up with your healthcare provider, or as advised, if you don't start to feel better within 24 hours.When to seek medical adviceCall your healthcare provider right away if any of these occur: A change in the type of pain. Call if it feels different, becomes more serious, lasts longer, or begins to spread into your shoulder, arm, neck, jaw, or back. Shortness of breath You feel more pain w hen you breathe Cough with dark-colored mucus or blood Weakness, dizziness, or fainting Fever of 100.4F (38C) or higher, or as directed by your healthcare provider Swelling, pain, or redness in one leg [id number] [employer]. [address] [place] [address], [place] [address]. All rights reserved. This information is not intended as asubstitute for professional medical care. Always follow your healthcare professional's instructions.Chest Wall Pain: Costochondritis 4 General Instructions [facility] Emergency Department [address] [place] [address] Phone #: ext- [phone] 09/19/2019 18:25 Patient: MIRIAM HINES Sex: F : 1970 Age: 49yThe chest pain that you have had today is caused by costochondritis. This condition is caused by aninflammation of the cartilage joining your ribs to your breastbone. It is not caused by heart or lungproblems. Your healthcare team has made sure that the chest pain you feel is not from a lifethreatening cause of chest pain such as heart attack, collapsed lung, blood clot in the lung, tear in theaorta, or esophageal rupture. The inflammation may have been brought on by a blow to the chest,lifting heavy objects, intense exercise, or an illness that made you cough and sneeze a lot. It oftenoccurs during times of emotional stress. It can be painful, but it is not dangerous. It usually goes awayin 1 to 2 weeks. But it may happen again. Rarely, a more serious condition may cause symptomssimilar to costochondritis. That's why it's important to watch for the warning signs listed below.Home careFollow these guidelines when caring for yourself at home: If you feel that emotional stress is a cause of your condition, try to figure out the sources of that stress. It may not be obvious. Learn ways to deal with the stress in your life. This can include regular exercise, muscle relaxation, meditation, or simply taking time out for yourself. You may use acetaminophen, ibuprofen, or naproxen to control pain, unless another pain medicine was prescribed. If you have liver or kidney disease or ever had a stomach ulcer, talk with your healthcare provider before using these medicines. You can also help ease pain by using a hot, wet compress or heating pad. Use this with or without a medicated skin cream that helps relieves pain. Do stretching exercise as advised by your provider. Take any prescribed medicines as directed. 5 General Instructions [facility] Emergency Department [address] [place] [address] Phone #: ext- [phone] 09/19/2019 18:25 Patient: MIRIAM HINES Sex: F : 1970 Age: 49yFollow-up careFollow up with your healthcare provider, or as advised, if you do not start to get better in the next 2days.When to seek medical adviceCall your healthcare provider right away if any of these occur: A change in the type of pain. Call if it feels different, becomes more serious, lasts longer, or spreads into your shoulder, arm, neck, jaw, or back. Shortness of breath or pain gets worse when you breathe Weakness, dizziness, or fainting Cough with dark-colored sputum (phlegm) or blood Abdominal pain Dark red or black stools Fever of 100.4F (38C) or higher, or as directed by your healthcare provider [id number] [employer]. [address] [place] [address]. All rights reserved. This information is not intended as asubstitute for professional medical care. Always follow your healthcare professional's instructions. You have been given the following additional information: Chest Pain, Noncardiac Chest Wall Pain, Costochondritis No strenuous activity. Rest.(Electronically signed by Lourdes Krishnan M.D. 09/20/2019 06:47) Name Value Range Interpretation Code Description Data Tabitha rce(s) Supporting Document(s) ID Date Data Source [id number] 09/19/2019 06:57:00 PM EST [facility] 1 Clinical Report - Nurses [facility] Emergency Department [address] [place] [address] Phone #: ext- [phone] 09/19/2019 18:25 Patient: MIRIAM HINES [facility]#: [id number] Sex: F : 1970 Age: 49yTRIAGETriage time: 18:33 09/19/2019. Acuity: LEVEL 3.Chief Complaint: (right lower rib pain).Alert.( pt c/o right side pain around lower portion of ribs. recently treated for pneumonia.). She has had nauseaand diarrhea.SEPSIS SCREEN: NEGATIVE. Negative (no infection suspected/documented). --18:41 09/19/19, R.N.18:33 09/19/19. BP: 102/69. MAP: 80. HR: 74. RR: 20. O2 saturation: 95%. Temp: 96.6 F. Pain level now:03/30. --18:41 09/19/19December, R.N.Weight: 104.3 kg stated. Height/Length: 67 inches Per Patient. BMI: 36. --18:33 09/19/19December, R.N.MedicationsAspirin Oral. --18:34 09/19/19December, R.N. Pantoprazole Sodium Oral. --18:34 09/19/19, Dec, R.N. Sotalol HCl Oral. --18:34 09/19/19December, R.N. amLODIPine Besylate Oral. --18:34 09/19/19December, R.N. Metoprolol Tartrate Oral. --18:34 09/19/19December, R.N. Doxycycline Oral. --18:35 09/19/19December, R.N. Tessalon Perles Oral. --18:35 09/19/19December, R.N. busPIRone HCl Oral. --18:35 09/19/19December, R.N. Vicodin Oral. --18:35 09/19/19December, R.N. Ramipril Oral. --18:35 09/19/19December, R.N. traZODone HCl Oral. --18:35 09/19/19December, R.N. Pramipexole Dihydrochloride Oral. --18:35 09/19/19December, R.N. Venlafaxine HCl ER Oral. --18:35 09/19/19December, R.N. Multivitamins Oral. --18:35 09/19/19December, R.N. Fish Oil Oral. --18:35 09/19/19December, R.N.AllergiesBentyl. --18:35 09/19/19December, R.N.Statins. --18:36 09/19/19December, R.N.Penicillins. --18:36 09/19/19December, R.N.Gabapentin. --18:36 09/19/19December, R.N.Zofran. --18:36 09/19/19December, R.N.root beer. --18:36 09/19/19December, R.N. 2 Clinical Report - Nurses [facility] Emergency Department [address] [place] [address] Phone #: ext- [phone] 09/19/2019 18:25 Patient: MIRIAM HINES Sex: F : 1970 Age: 49yCelecoxib. --18:36 09/19/19December, R.N.Hydromorphone. --18:36 09/19/19December, R.N.Fluoxetine. --18:36 09/19/19, December, R.N.ARIPiprazole. --18:36 09/19/19, December, R.N.Pregabalin. --18:37 09/19/19 Zoss, December, R.N.PROBLEMS:Arrhythmia.Osteoporosis.Diabetes Mellitus. --18:39 09/19/19 Zoss, December, R.N.Depression.Fibromyalgia.Anxiety Reaction.Coronary Artery Disease.Sleep Apnea.Restless Legs Syndrome.Hypertension.Hidradenitis Suppurativa.Hypercholesterolemia.Migraine Headache.Irritable bowel syndrome (disorder).Insomnia. --19:17 09/19/19 Lourdes Krishnan M.D.The following entry was modified by Lourdes Krishnan M.D., 19:17 09/19/19Hidradenitis Suppurativa. --18:38 09/19/19 [facility], December, R.N.The following entry was modified by Lourdes Krishnan M.D., 19:17 09/19/19Restless Legs Syndrome. --18:37 09/19/19 [facility], December, R.N.The following entry was modified by Lourdes Krishnan M.D., 19:17 09/19/19Sleep Apnea. --18:37 09/19/19 [facility], December, R.N.The following entry was modified by Lourdes Krishnan M.D., 19:17 09/19/19Fibromyalgia. --18:37 09/19/19 [facility], December, R.N.The following entry was modified by Lourdes Krishnan M.D., 19:17 09/19/19Hypercholesterolemia. --18:37 09/19/19 [facility], December, R.N.The following entry was modified by Lourdes Krishnan M.D., 19:17 09/19/19Hypertension. --18:37 09/19/19 [facility], December, R.N.The following entry was modified by Lourdes Krishnan M.D., 19:17 09/19/19Insomnia. --18:37 09/19/19 Lyndsay Suarez R.N.The following entry was modified by Lourdes Krishnan M.D., 19:17 09/19/19Migraine Headache. --18:37 09/19/19 Lyndsay Suarez RReddyN.The following entry was modified by Lourdes Krishnan M.D., 19:17 09/19/19Depression. --18:37 09/19/19 Lyndsay Suarez RReddyN.The following entry was modified by Luordes Krishnan M.D., 19:17 09/19/19Coronary Artery Disease. --18:37 09/19/19 Lyndsay Suarez R.N.The following entry was modified by Lourdes Krishnan M.D., 19:17 09/19/19 3 Clinical Report - Nurses [facility] Emergency Department [address] [place] [address] Phone #: ext- [phone] 09/19/2019 18:25 Patient: MIRIAM HINES [facility]#: [id number] Sex: F : 1970 Age: 49yAnxiety Reaction. --18:37 09/19/19 Lyndsay Suarez, R.N.The following entry was modified by Lourdes Krishnan M.D., 19:17 09/19/19Irritable bowel syndrome (disorder). --18:37 09/19/19 Lyndsay Suarez RReddyN.The following entry was modified by Lourdes Krishnan M.D., 19:17 09/19/19Depression. --19:17 09/19/19 Lourdes Hernandez M.D.The following entry was modified by Lourdes Krishnan M.D., 19:17 09/19/19Sleep Apnea. --19:17 09/19/19 Lourdes Krishnan M.D..ADDITIONAL SURGERIES:Cardiac Catheterization ([id number] [id number] angioplasty).Cholecystectomy.Coronary Artery Bypass Graft.C- Section.Hysterectomy.Laparoscopy. --18:39 09/19/19 Lyndsay Suarez, R.N.Carpal Tunnel Surgery (Right).Mediport. --18:39 09/19/19 Lyndsay Suarez RReddyN.HistoryPAST MEDICAL HX: The patient has had a hysterectomy.SOCIAL HX: Never smoker. No alcohol use or drug use. She was offered HIV testing but declined. Shehas not traveled outside the [place]Infectious disease exposure: No infectious disease exposure. Patient is not a known carrier of tuberculosis,hepatitis, HIV, MRSA or VRE. Patient is not a known carrier of CRE.SELF HARM ASSESSMENT: Self harm ass essment was performed. The patient answered "no" to thequestion(s) "Have you recently felt down, depressed, or hopeless?", "Do you have thoughts of harming orkilling yourself?", "Do you have a plan for harming or killing yourself?", "Have you recently had thoughtsabout harming or killing others?", "Do you have any dangerous items in your possession?", "Have younoticed less interest or pleasure in doing things?", "Are you here because you tried to hurt yourself?" and"Have you ever tried to hurt yourself before today?".ABUSE ASSESSMENT: Abuse assessment. yes. The patient had positive responses to the question(s)"Do you feel safe in your home?". No report of abuse.NUTRITIONAL RISK ASSESSMENT: The nutritional risk assessment revealed no deficiencies.FUNCTIONAL ASSESSMENT: Functional assessment: no impairments noted.LEARNING NEEDS ASSESSMENT: The learning needs assessment revealed no barriers.FALL RISK ASSESSMENT: Fall risk assessment completed. No risk factors identified. 4 Clinical Report - Nurses [facility] Emergency Department [address] [place] [address] Phone #: ext- [phone] 09/19/2019 18:25 Patient: MIRIAM HINES [facility]#: [id number] Sex: F : 1970 Age: 49y SKIN INTEGRITY ASSESSMENT: Skin integrity risk assessment completed. No skin integrity risk identified. --18:41 09/19/19 Lyndsay Suarez R.N. Interventions To treatment room. --18:41 09/19/19 Lyndsay Suarez R.N.PHYSICAL ASSESSMENTGENERAL / NEURO / PSYCH: Alert. Oriented X 4.HEENT: Mucous membranes are pink.RESPIRATORY: Respirations not labored. Breath sounds within normal limits.CVS: Normal sinus rhythm noted. Capillary refill less than 2 seconds.GI / : Abdomen soft. Abdominal tenderness in the right upper quadrant and right side of the abdomen.Bowel sounds within normal limits.SKIN: Skin is warm and dry. --19:20 09/19/19 Gela Pearson R.N.NURSING PROGRESS NOTESReassurance given. Two patient identifiers checked. Call light placed in reach. Side rails up x 2. Bedplaced in lowest position. Brakes of bed on. Patient ready for evaluation- ED physician notified. -- Gela Pearson R.N. Patient transported to radiology by wheelchair with tech. --19:09/19/19 Gela Pearson R.N. 19:00 08/23 . BP: 93/45. MAP: 61. HR: 93. RR: 22. O2 saturation: 97%. --19:24 09/19/19 Gela Pearson R.N. Charted on wrong patient. --19:24 09/19/19 Gela Pearson R.N. Care transferred and report given (ross). --19:32 09/19/19 Gela Pearson R.N. 19:32 09/19/2019 Toradol (Ketorolac Tromethamine) IM 30 mg given. Given in the left deltoid. Allergies verified and confirmed 5 rights. Information reviewed with patient and spouse including reason for taking this medication, signs of allergic reaction and precautions. Verbalizes understanding. --19:47 09/19/19 Ross Parnell RN EKG time: (19:42 09/19/2019). EKG was ordered, performed by a nurse and shown to the ED physician. Urine collected. --19:49 09/19/19 Ross Parnell RN 20:20 09/19/2019 Site #1 accessed indwelling Mediport in the right chest using a 22g, ? inch needle following sterile technique; 1 attempt. Good blood return noted. Site prepped with chlorhexidine. Blood drawn: rainbow set and green tube(s). Labeled in the presence of the patient and sent to the lab. Proximal port flushed with 10 mL saline. --20:41 09/19/19 Ross Parnell RN 21:11 09/19/19. BP: 90/65. MAP: 73. HR: 65. RR: 18. O2 saturation: 98% on room air. Temp: 97.1 F (oral). Pain level now: 02/28. --21:12 09/19/19 Svitlana Fan R.N. 5 Clinical Report - Nurses [facility] Emergency Department [address] [place] [address] Phone #: ext- [phone] 09/19/2019 18:25 Patient: MIRIAM HINES Sex: F : 1970 Age: 49yDISPOSITION / DISCHARGE 21:34 09/19/19. BP: 143/95. MAP: 111. HR: 63. RR: 16. O2 saturation: 97%. Temp: 97.7 F. Pain level now: 01/28. --21:46 09/19/19 Ross Parnell RN Departure time: 21:46 09/19/2019. Condition at departure: stable. No learning barriers present. Discharge instructions provided and reviewed with the patient and spouse. Activity restrictions reviewed. Patient and spouse verbalized understanding. Written instructions provided in Nigerian. The patient was discharged by the physician. She was discharged home and accompanied by spouse. She left ambulatory and via private vehicle. Spouse olamide hunter. Medication list reviewed and validated. --21:46 09/19/19 Ross Parnell RN 20:02 09/19/2019 Toradol IM Response: no adverse reaction symptoms are the same. The patient feels the same. ED physician notified. --21:47 09/19/19 Ross Parnell RN 21:36 09/19/2019 Site #1 removed upon discharge. Catheter intact. Bandaid applied. --21:46 09/19/19 Ross Parnell RN.Locked/Released at 09/19/2019 21:48 by Ross Parnell RN Name Value Range Interpretation Code Description Data Tabitha rce(s) Supporting Document(s) ID Date Data Source [id number] 09/19/2019 06:57:00 PM [facility] 1 Clinical Report - Physicians/Mid Levels [facility] Emergency Department [address] [place] [address] Phone #: ext- [phone] 09/19/2019 18:25 Patient: MIRIAM HINES Sex: F : 1970 Age: 49y Time Seen: 19:08 09/19/2019. Arrived- By private vehicle. Historian- patient and family. Disposition decision: 21:18 09/19/2019.HISTORY OF PRESENT ILLNESS Chief Complaint: right side chest pain. It is described as aching and sharp and it is described as located in the right chest area and RUQ of the abdomen. (49 year old with rght sided chest wall pain, hurts when she moves. patient was seen here on 16 and had extensive work up done including the cta. was treated with doxycycline. and vicoidin. denies travel or long distance travel. no pedal edema. no chest pressure.). Is still present. It was gradual in onset and has been intermittent. At its maximum, severity described as 8 / 10. When seen in the E.D., severity described as 8 / 10. Modifying factors- worsened by movement. Not worsened by walking or cough. Not relieved by a nything. No nausea, vomiting, difficulty breathing or diaphoresis. (pluritic nature of pain, worse with movement). Similar symptoms previously. Patient has had similar symptoms several times, frequently. Recent medical care: The patient was seen recently at this facility and another facility in the emergency department and a clinic and hospitalized (was seen here on 09/05/19 and had CTA done which was negative for PE also. patient had CTA on 04/06/18 and again negative for PE with D dimer 0.65 at that time.).REVIEW OF SYSTEMS No fever, chills, pedal edema, calf pain or fainting episodes. No headache, sore throat, blurred vision, abdominal pain or black stools. No difficulty with urination, skin rash, enlarged lymph nodes or joint pain. The patient has had a cough. All other systems reviewed and are negative.PAST HISTORY See nurses notes. Hypertension. Heart disease. Coronary artery disease. GI disease. Problems: Diabetes Mellitus Type 2. Atypical Chest Pain. Degenerative Joint Disease. Cardiac arrythmia. Chest Pain. Unstable Angina. Sleep Apnea. Hyperlipidemia. Irritable bowel syndrome (disorder). Osteoporosis. 2 Clinical Report - Physicians/Mid Levels [facility] Emergency Department [address] [place] [address] Phone #: ext- [phone] 09/19/2019 18:25 Patient: MIRIAM HINES [facility]#: [id number] Sex: F : 1970 Age: 49ySurgeries: Cardiac procedures.Additional Surgeries:10 angioplasty.6 coronary stents.Cabg.Cardiac Catheterization.Cardiac stents.Carpal Tunnel Surgery.Cholecystectomy.Coronary Artery Bypass Graft.C- Section.Hysterectomy.Laparoscopy.Mediport.Oophorectomy.Salpingectomy.Medications :Fish Oil Oral.Multivitamins Oral.Venlafaxine HCl ER Oral.Pramipexole Dihydrochloride Oral.traZODone HCl Oral.Ramipril Oral.Vicodin Oral.busPIRone HCl Oral.Tessalon Perles Oral.Doxycycline Oral.Metoprolol Tartrate Oral.amLODIPine Besylate Oral.Sotalol HCl Oral.Pantoprazole Sodium Oral.Aspirin Oral.Allergies:ARIPipraz ole.Bentyl.Celecoxib.Fluoxetine.Gabapentin.Hydromorphone.Penicillins.Pregabalin. 3 Clinical Report - Physicians/Mid Levels [facility] Emergency Department [address] [place] [address] Phone #: ext- [phone] 09/19/2019 18:25 Patient: MIRIAM HINES Sex: F : 1970 Age: 49y root beer. Statins. Zofran.SOCIAL HISTORY No alcohol use or drug use. No recent travel. Is a local resident. She lives with spouse.ADDITIONAL NOTES The nursing notes have been reviewed with agreement regarding the chief complaint, HPI, ROS, PMH and patient medications and allergies.PHYSICAL EXAM Vital Signs: 09/19/2019 18:33 BP: 102/69. MAP: 80. HR: 74. RR: 20. O2 saturation: 95%. Temp: 96.6 F. Pain level now: 7/10. Have been reviewed as normal. Appearance: Alert. Oriented X3. No acute distress. Anxious. No apparent distress. No marfanoid habitus. Eyes: Pupils equal, round and reactive to light. Eyes normal inspection. No scleral icterus or pale conjunctivae. ENT: Nose normal. Pharynx normal. No pharyngeal erythema or tonsillar exudate. The mucous membranes are not dry. N noelle: Normal inspection. Neck supple. No carotid bruit, meningeal signs, lymphadenopathy or thyromegaly. CVS: Normal heart rate and rhythm. Heart sounds normal. Pulses normal. Respiratory: No respiratory distress. No respiratory distress. Chest pain reproducible. Breath sounds normal. No retractions, accessory muscle use, splinting, decreased air movement or rales. No wheezes or prolonged expiration. Abdomen: Soft and nontender. Bowel sounds normal. No organomegaly. No mass. No abdominal tenderness, rebound tenderness, distention, mass present or organomegaly. The bowel sounds are not abnormal. Back: Normal external inspection. No CVA tenderness. Skin: No cyanosis. Skin warm. Normal skin color. No rash. Skin not cool on palpation. No skin rash, pallor, diaphoresis or poor skin turgor. Extremities: Extremities exhibit normal ROM. No clubbing present or lower extremity edema. No calf tenderness. No lower extremity edema. Neuro: Oriented X 3. No alteration in mental status. No cranial nerve deficit. No motor deficit. No weakness.LABS, X-RAYS, AND EKG EKG: No acute process. No acute ischemia. Rate: 69. Non-specific ST segment / T wave abnormalities. EKG unchanged when compared with prior EKG. (09.06.19). The study has been interpreted contemporaneously by me. Chest X-ray: Normal Chest X-Ray: independently viewed by me (cardiomegaly. same as before). Laboratory Tests: Laboratory tests have been ordered, with results reviewed and considered in the medical decision making process. 4 Clinical Report - Physicians/Mid Levels [facility] Emergency Department [address] [place] [address] Phone #: ext- [phone] 09/19/2019 18:25 Patient: MIRIAM HINES [facility]#: [id number] Sex: F : 1970 Age: 49yUrinalysis: (CELY: 09/19/2019 20:00) ( MsgRcvd 09/19/2019 20:22) Final results Test Result Flag Units (Reference) URINALYSIS URINALYSIS SOURCE R COLOR yellow (NORMAL: Yello CLARITY clear (NORMAL: Clear SPEC GRAVITY 1.030 (1.001 - 1.030 pH 5 (5 - 9) GLUCOSE NORM (NORMAL: Negat BILIRUBIN NEG (NORMAL: Negat KETONE NEG (NORMAL: Negat PROTEIN NEG (NORMAL: Negat NITRITE NEG (NORMAL: Negat BLOOD NEG (NORMAL: Negat LEUK EST NEG (NORMAL: Negat UROBILINOGEN NOR (less than 1.0 MICROSCOPIC Not IndicateCBC w Diff: (CELY: 09/19/2019 20:10) ( MsgRcvd 09/19/2019 20:21) Final results Test Result Flag Units (Reference) CBC W/AUTOMATED DIFF COMPLETE BLOOD COUNT WBC 9.0 10/uL (4.2 - 11.0) RBC 4.01 L 10/uL (4.20 - 5.40) HEMOGLOBIN 12.9 g/dL (12.0 - 16.0) HEMATOCRIT 38.0 % (37.0 - 47.0) MCV 94.8 fL (81.0 - 101) MCH 32.2 pg (27.0 - 34.0) MCHC 33.9 g/dL (31.0 - 36.0) RDW 13.1 % (11.5 - 14.5) PLATELETS 300 10/uL (150 - 450) MPV 9.5 fL (7.4 - 10.4) NEUT 57.4 % (37.0 - 80.0) LYMPH 31.0 % (25.0 - 40 .0) MONO 9.3 H % (3.0 - 8.0) EOS 1.2 % (0.0 - 7.0) BASO 0.4 % (0.0 - 2.5) %IG 0.7 H % (0.0 - 0.0) %NRBC 0.0 % (0.0 - 0.0) #NEUT 5.15 10/uL (2.00 - 6.90) #LYMPH 2.79 10/uL (0.60 - 3.40) #MONO 0.84 10/uL (0.00 - 0.90) #EOS 0.11 10/uL (0.00 - 0.70) #BASO 0.04 10/uL (0.00 - 0.20) #IG 0.06 10/uL (0.00 - 0.10) #NRBC 0.00 10/uL (0.00 - 0.00) MANUAL DIFF NOT INDICATED RBC MORPH NOT INDICATEDCMP: (CELY: 09/19/2019 19:36) ( MsgRcvd 09/19/2019 20:05) Final results Test Result Flag Units (Reference) COMPREHENSIVE METABOLIC PANEL COMPREHENSIVE METABOLIC PANEL SODIUM 141 mEq/L (134 - 153) POTASSIUM 4.1 mEq/L (3.6 - 5.0) CHLORIDE 103 mEq/L (98 - 107) CO2 22 MEQ/L (22 - 30) GLUCOSE 124 H MG/DL (65 - 110) BUN 23 H MG/DL (7 - 21) CREATININE 0.9 MG/DL (0.7 - 1.5) BUN/CREAT 26 (8 - 27) TOTAL PROTEIN 6.8 G/DL (6.3 - 8.2) ALBUMIN 4.1 G/DL (3.9 - 5.0) 5 Clinical Report - Physicians/Mid Levels [facility] Emergency Department [address] [place] [address] Phone #: ext- [phone] 09/19/2019 18:25 Patient: MIRIAM HINES Sex: F : 1970 Age: 49y GLOBULIN 2.7 GM/DL (2.4 - 3.2) A/G RATIO 1.5 (0.8 - 2.0) CALCIUM 9.3 MG/DL (8.4 - 10.2) TOTAL BILI <0.7 MG/DL (0.2 - 1.3) ALKALINE PHOS 71 U/L (38 - 126) SGOT/AST 24 U/L (5 - 40) SGPT/ALT 41 U/L (7 - 56) ANION GAP 16.0 mmol/L (8.0 - 16.0) AGE 49 yrs NON-AA GFR >60 mL/min AFR AMER GFR >60 mL/min Male GFR Interprentation 20-49 yrs >60 mL/min Normal 50-59 yrs >56 mL/min Normal 60-69 yrs >49 mL/min Normal 70-79yrs >42 mL/min Normal 80 and above >35 mL/min Normal Female GFR Interpretation 20-39 yrs >60 mL/min Normal 40-49 yrs >58 mL/min Normal 50-59 yrs >51 mL/min Normal 60-69 yrs >45 mL/min Normal 70-79 yrs >39 mL/min Normal 80 and above >32 mL/min Normal CPK: (CELY: 09/19/2019 19:36) ( [facility] Final results Test Result Flag Units (Reference) CPK 42 U/L (30 - 170) D-Dimer: (CELY: 09/19/2019 20:10) ( [facility] 09/19/2019 20:51) Final results Test Result Flag Units (Reference) D-DIMER QUANT 0.69 H ug/mL (0.27 - 0.50) Lipase: (CELY: 09/19/2019 19:36) ( AzgRcvd 019 20:05) Final results Test Result Flag Units (Reference) LIPASE 50 U/L (13 - 60) Chest 2 View: (CELY: 09/19/2019 19:19) ( [facility] 19[facility]31[facility] In Progress CHEST 2 VIEWS Reason(s): right lower chest pain TRANSPORTATION: IV? O2? Oxygen?(No) Room: ED : No.PROGRESS AND PROCEDURES Course of Care: 19:08. Evaluation after multiple exams and cardiac monitoring. Patient is stable. Discussed with patient and reviewed.. clinically musculoskeletal and psosibly pleuritic. currently on vicodin and doxycycline. patient anxious. reviewed multiple charts of patient. 21:06 09/19/19. patients vitals are wnl. EKG same as 09/06/19. NSR with HR 69. no tachy . no STEMI. saturation on RA 95 % as before. Reviewed previous visits and work up. Patient had D dimer 0.65 on 7/17/18 and negative CTA pf chest no PE. patient was seen here on 09/05/19 also with negative CTA for PE . CXR same as before. NO pneumonia seen. due to patients symptoms treated as pneumonia. currently i do not see any tachycardia , HR 69/ mt. no hypoxia. I do not see any need for another CTA considering she had one done recently which was negative. and also d dimer was the same when she had a negative CTA study for PE.I do not want to radiate the patient again considering sjhe always had d dimer 0.65 eeven last year and recent CTa negative, troponin negative. hence d/w patient and reviewed, 6 Clinical Report - Physicians/Mid Levels [facility] Emergency Department [address] [place] [address] Phone #: ext- [phone] 09/19/2019 18:25 Patient: MIRIAM HINES Sex: F : 1970 Age: 49y 21:18 09/19/19. Discussed with patient and her spouse, reviewed. patient is feeling much better. advised about her findings. possibly muscle pain due to her cough. no evidence of PE clinically. repeats vitals reviewed.patient is happy with discharge planning. advised naproxen / advil. f/u with pcp, Return idf worsens or any concerns. 09/19/2019 21:11 BP: 90/65. MAP: 73. HR: 65. RR: 18. O2 saturation: 98% on room air. Temp: 97.1 F. Pain level now: 6/10. Vital Signs: have been reviewed as normal. Mean arterial pressure- normal. Heart rate normal. Temperature normal. Oxygen saturation normal. Patient/family counseled. Old medical records ordered. Disposition: Discharged home in good and improved condition (21:18 Sep 19 2019).CLINICAL IMPRESSION Atypical chest pain Possible chest wall painINSTRUCTIONS No strenuous activity. Rest. Avoid stimulants (such as cigarettes, coffee, cold medicines, sinus medicines, street drugs). Warnings: Further evaluation is necessary. GENERAL WARNINGS: Return or contact your physician immediately if your condition worsens or changes unexpectedly, if not improving as expected, or if other problems arise. Follow-up: Follow up with your healthcare provider in two days if not better. Call for an appointment. Reason for referral: evaluation and treatment. Summary of care provided to patient, family and follow-up provider via paper. Understanding of the discharge instructions verbalized by patient and family.(Electronically signed by Lourdes Krishnan M.D. 09/20/2019 06:47) Name Value Range Interpretation Code Description Data Tabitha rce(s) Supporting Document(s) ID Date Data Source [id number] 09/19/2019 08:51:00 PM [facility] Name Value Range Interpretation Code Description Data [facility] rce(s) Supporting Document(s) Fibrin D-dimer FEU [Mass/volume] in Platelet poor plasma 0.69 ug /mL 0.27 - 0.50 H [facility] ID Date Data Source [id number] 09/19/2019 08:21:00 PM [facility] Name Value Range Interpretation Code Description Data [facility] rce(s) Supporting Document(s) CBC W/AUTOMATED DIFF [facility] COMPLETE BLOOD COUNT Leukocytes [#/volume] in Blood by Automated count 9.0 10^3/uL 4.2 - 1 1.0 [facility] Erythrocytes [#/volume] in Blood by Automated count 4.01 10^6/uL 4. 20 - 5.40 L [facility] Hemoglobin [Mass/volume] in Blood 12.9 g/dL 12.0 - 16.0 [facility] Hematocrit [Volume Fraction] of Blood by Automated count 38.0 % 3 7.0 - 47.0 [facility] Erythrocyte mean corpuscular volume [Entitic volume] by Auto mated count 94.8 fL 81.0 - 101 [facility] Erythrocyte mean corpuscular hemoglobin [Entitic mass] by Automated count 32.2 pg 27.0 - 34.0 [facility] Erythrocyte mean corpuscular hemoglobin concentration [Mass/volume] by Automated count 33.9 g/dL 31.0 - 36.0 [facility] Erythrocyte distribution width [Ratio] by Automated count 13.1 % 11.5 - 14.5 [facility] Platelets [#/volume] in Blood by Automated count 300 10^3/uL 150 - 45 0 [facility] Platelet mean volume [Entitic volume] in Blood by Automated count 9.5 fL 7.4 - 10.4 [facility] Neutrophils/100 leukocytes in Blood by Automated count 57.4 % 37. 0 - 80.0 [facility] Lymphocytes/100 leukocytes in Blood by Manual count 31.0 % 25.0 - 40.0 [facility] Monocytes/100 leukocytes in Blood by Automated count 9.3 % 3.0 - 8.0 H [facility] Eosinophils/100 leukocytes in Blood by Automated count 1.2 % 0.0 - 7.0 [facility] Basophils/100 leukocytes in Blood by Automated count 0.4 % 0.0 - 2.5 [facility] %IG 0.7 % 0.0 - 0.0 [facility] %NRBC 0.0 % 0.0 - 0.0 [facility] al Neutrophils [#/volume] in Blood by Automated count 5.15 10^3/uL 2.00 - 6.90 [facility] Lymphocytes [#/volume] in Blood by Automated count 2.79 10^3/uL 0.60 - 3.40 [facility] Monocytes [#/volume] in Blood by Automated count 0.84 10^3/uL 0.00 - 0.90 [facility] Eosinophils [#/volume] in Blood by Automated count 0.11 10^3/uL 0.00 - 0.70 [facility] Basophils [#/volume] in Blood by Automated count 0.04 10^3/uL 0.00 - 0.20 [facility] #IG 0.06 10^3/uL 0.00 - 0.10 [facility] #NRBC 0.00 10^3/uL 0.00 - 0.00 [facility] MANUAL DIFF NOT INDICATED [facility] RBC MORPH NOT INDICATED [facility] spital ID Date Data Source [id number] 09/19/2019 08:22:00 PM EST [facility] Name Value Range Interpretation Code Description Data Tabitha rce(s) Supporting Document(s) [facility] R [facility] COLOR yellow NORMAL: Yellow [facility] CLARITY clear NORMAL: Clear [facility] Specific gravity of Urine by Test strip 1.030 1.001 - 1.030 [facility] pH 5 5 - 9 [facility] Glucose [Mass/volume] in Urine by Test strip NORM NORMAL: Negat [facility] Bilirubin.total [Presence] in Urine by Test strip NEG NORMAL: Negative [facility] Ketones [Presence] in Urine by Test strip NEG NORMAL: Negative [facility] Protein [Mass/volume] in Urine by Test strip NEG NORMAL: Negat [facility] Nitrite [Presence] in Urine by Test strip NEG NORMAL: Negative [facility] BLOOD NEG NORMAL: Negative [facility] Leukocyte esterase [Presence] in Urine by Test strip NEG RADHA L: Negative [facility] Urobilinogen [Mass/volume] in Urine by Test strip NOR less cecilio n 1.0 mg/dL [facility] MICROSCOPIC Not Indicate [facility] ID Date Data Source [id number] 09/19/2019 09:06:00 PM [facility] Name Value Range Interpretation Code Description Data Tabitha rce(s) Supporting Document(s) TROPONIN T <0.01 NG/ML 0.00 - 0.10 [facility] TROPONIN T0.1 ng/ml Recommended as the c linical threshold value forTroponin T. ID Date Data Source [id number] 09/19/2019 08:05:00 PM [facility] Name Value Range Interpretation Code Description Data Tabitha rce(s) Supporting Document(s) Lipase [Enzymatic activity/volume] in Serum or Plasma 50 U/L 13 - 60 [facility] ID Date Data Source [id number] 09/19/2019 08:05:00 PM [facility] Name Value Range Interpretation Code Description Data Tabitha rce(s) Supporting Document(s) Creatine kinase [Enzymatic activity/volume] in Serum or Plasma 4 2 U/L 30 - 170 [facility] ID Date Data Source [id number] 09/19/2019 08:05:00 PM EST [facility] Name Value Range Interpretation Code Description Data Tabitha rce(s) Supporting Document(s) COMPREHENSIVE METABOLIC PANEL [facility] COMPREHENSIVE METABOLIC PANEL Sodium [Moles/volume] in Serum or Plasma 141 mEq/L 134 - 153 [facility] Potassium [Moles/volume] in Serum or Plasma 4.1 mEq/L 3.6 - 5.0 [facility] Chloride [Moles/volume] in Serum or Plasma 103 mEq/L 98 - 107 [facility] Carbon dioxide, total [Moles/volume] in Serum or Plasma 22 MEQ/L 22 - 30 [facility] Glucose [Mass/volume] in Serum or Plasma 124 MG/DL 65 - 110 H [facility] BUN 23 MG/DL 7 - 21 H [facility] Creatinine [Mass/volume] in Serum or Plasma 0.9 MG/DL 0.7 - 1.5 [facility] BUN/CREAT 26 8 - 27 [facility] Protein [Mass/volume] in Serum or Plasma 6.8 G/DL 6.3 - 8.2 [facility] Albumin [Mass/volume] in Serum or Plasma 4.1 G/DL 3.9 - 5.0 [facility] Globulin [Mass/volume] in Serum by calculation 2.7 GM/DL 2.4 - 3.2 [facility] A/G RATIO 1.5 0.8 - 2.0 [facility] Calcium [Mass/volume] in Serum or Plasma 9.3 MG/DL 8.4 - 10.2 [facility] Bilirubin.total [Mass/volume] in Serum or Plasma <0.7 MG/DL 0.2 - 1.3 [facility] Alkaline phosphatase [Enzymatic activity/volume] in Serum or Plasma 71 U/L 38 - 126 [facility] Aspartate aminotransferase [Enzymatic activity/volume] in Serum or Plasma 24 U/L 5 - 40 [facility] Alanine aminotransferase [Enzymatic activity/volume] in Seru m or Plasma 41 U/L 7 - 56 [facility] Anion gap 3 in Serum or Plasma 16.0 mmol/L 8.0 - 16.0 [facility]GE 49 [facility] NON-AA GFR >60 mL/min [facility] AFR AMER GFR >60 mL/min [facility] Male GFR In terprentation 20-49 yrs >60 mL/min Normal 50-59 yrs >56 mL/min Normal 60-69 yrs >49 mL/min Normal 70-79yrs >42 mL/min Normal 80 and above >35 mL/min Normal Female GFR Interpretation 20-39 yrs >60 mL/min Normal 40-49 yrs >58 mL/min Normal 50-59 yrs >51 mL/min Normal 60-69 yrs >45 mL/min Normal 70-79 yrs >39 mL/min Normal 80 and above >32 mL/min Normal ID Date Data Source [id number] 09/12/2019 02:07:00 PM [facility] Patient Name: Miriam Hines : 1970 Sex: F Pt Unit #: [id number] Location:[facility] Provider: Visit Date/Time: 09/12/19 Primary Insurance: MEDICARE [employer] Secondary Insurance: MVP Intake Vital Signs 09/12/19 14:07 Current Height 5 ft 7 in Current Weight 238 lb BMI 37.3 BP 114/76 Blood Pressure Location Lt brachial Position Sitting Respiration 18 Pulse 72 Pulse Source Pulse Oximeter Temp 98.7 F Temp Source Oral Pulse Oximetry (%) 98 Oxygen Delivery Method room air Intake Visit Reasons: Diabetes follow-up Is patient in pain?: Yes (Ribs from coughing) Pain scale (1-10): 7 Allergies morphine [Morphine] Allergy (Intermediate, Verified 02/04/19 04:50) HIVES, ITCHING hydromorphone HCl [From Dilaudid] Allergy (Mild, Verified 02/04/19 04:50) ITCHING aripiprazole [From ABILIFY] Adverse Reaction (Severe, Verified 02/04/19 04:50) Anxiety/Muscle Cramps ondansetron [From Zofran] Adverse Reaction (Severe, Verified 02/04/19 04:50) VOMITING ROOT BEER [ROOT BEER (food)] Adverse Reaction (Severe, Verified 02/04/19 04:50) NAUSEA,VOMITING,HIVES,PASSES OUT celecoxib [From Celebrex] Adverse Reaction (Intermediate, Verified 02/04/19 04:50) Depression duloxetine [From Cymbalta] Adverse Reaction (Intermediate, Verified 02/04/19 04:50) Depression gabapentin [From Neurontin] Adverse Reaction (Intermediate, Verified 02/04/19 04:50) GI Upset Penicillins [PENICILLINS] Adverse Reaction (Intermediate, Verified 02/04/19 04:50) Dyspnea/Diarrhea pravastatin Adverse Reaction (Intermediate, Verified 02/04/19 04:50) RUQ abdominal pain pregabalin [From LYRICA] Adverse Reaction (Intermediate, Verified 02/04/19 04:50) INCREASED DEPRESSION rosuvastatin [From Crestor] Adverse Reaction (Intermediate, Verified 02/04/19 04:50) Abdominal Cramps dicyclomine Adverse Reaction (Unknown, Verified 02/04/19 04:50) PLEASE VERIFY REACTION HIV Testing Offer - ages 13-64 Requirement for HIV testing offer been met?: Declines today. Pretest education received and acknowledged [facility] Medical History (Updated 06/17/19 @ 07:05 by Shweta Kaur) 1v CABG 2003 [place] to LAD Allergies/Hayfever Angina pectoris Anxiety Arthritis Bilia ry dyskinesia (Inactive) Chronic migraine Coronary Artery Disease Depressive disorder Diabetes mellitus Diarrhea Fibromyalgia Gastroesophageal reflux disease Headache Hiatal hernia Hidradenitis suppurativa (Chronic) History of cervical cancer History of ovarian cancer Hyperlipidemia Hypertension Insomnia missing (R) ear from Morbid obesity due to excess calories Obesity Obstructive sleep apnea Restless leg syndrome Sleep apnea Status post coronary artery stent placement Surgical History (Updated 03/15/19 @ 11:52 by Chance (app) ID) Angioplasty of vein section Cholecystectomy (05/30/15) History of - surgery History of - surgery History of - surgery History of - surgery History of colonoscopy History of hysterectomy Status post coronary artery bypass graft ( 2002) Status post oophorectomy Family History Mother Hyperlipidemia Hypertension Father Diabetes Hyperlipidemia maternal Aunt No problems noted. Maternal Grandmother No problems noted. Maternal Grandfather` Stroke Other Hearing problem Social History (Updated 09/12/19 @ 14:14 by Shweta Kaur) Does the Patient have a Healthcare Proxy: Yes (- JOHNNY) Does Patient have a DNR?: No Does Patient have a Living Will?: Yes Does the Patient have a MOLST?: No Advance Directives on File or in chart?: No Hx Recent Travel (where): No alcohol intake: current alcohol intake frequency: holidays/special occasions only substance use type: does not use HPI Additional HPI HPI Details: 49 YO female iw PMH listed is here for f/.u. She was ln [facility] for pneumonia. She was on Doxycycline and then Azithromycin in the hospital. Her sputum had few Enterobacter, Cloacae which was responsive to tetrocycline. She states she was coughing up blood. She was in thehospital two days. She got out 5 days ago. They gave her two days of Azithromycin to go home on. She also got steroids. She is still coughing a lot. She is in having much rib pain and fibromyalgia pain. It has not gotten any better. No fevers. Exam Const General: cooperative, no acute distress and ill appearing HENMT Head: normal to inspection Ears: TM's normal bilaterally Throat: posterior oropharynx normal Neck Neck: no lymphadenopathy noted Resp Effort Inspection: normal respiratory effort Auscultation: clear to auscultation bilaterally, no rales, no rhonchi and no wheezes Other: constant cough in exam room Cardio Rate: regular rate Rhythm: regular rhythm Heart Sounds: S1 normal, S2 normal, no gallops, no murmurs and no rubs Extrem General: no edema Assessment Plan Assessment Plan (1) Diabetes mellitus type 2 in obese: Status: Chronic Code(s): E11.69 - Type 2 diabetes mellitus with other specified complication; E66.9 - Obesity, unspecified SNOMED Code(s): 85053117 Category: Medical Plan - Aiden Kilpatrick, DO: Follow up hospital for pneumonia. Doxycycline 100mg BID x 10 days. Prednisone 20mg 2 tabs x 3 days, then 1 tab x 3 days then stop. Tessalon Perles 200mg TID prn cough. Vicodin 5/325 1 QID prn pain. F/u 10 days. (2) Hospital discharge follow-up: Code(s): Z09 - Encounter for follow-up examination after completed treatment for conditions other than malignant neoplasm (3) Pneumonia: Code(s): J18.9 - Pneumonia, unspecified organism (4) Rib pain: Code(s): R07.81 - Pleurodynia Orders Other Medications: Changed: From: metoprolol tartrate 25 mg PO BID 180 tabs 0RF To: metoprolol tartrate 12.5 mg (1/2 x 25 mg) PO BID 180 tabs 0RF From: venlafaxine 75 mg PO BID 180 tabs 3RF To: venlafaxine 75 mg PO QDAY 90 tabs 3RF Refilled: 2 pramipexole (Mirapex) 0.5 mg PO HS 90 tabs 3RF ramipril 2.5 mg PO QDAY 90 caps 3RF sotalol 80 mg PO BID 180 tabs 1RF trazodone 100 mg PO HS 90 tabs 3RF Discontinued: dapsone 5% apply to cysts BID as needed Discontinued Reason: MD Order 1 applic topical BID 60 grams 1RF L73.2 clobetasol-emollient 0.05% apply to scalp BID x 2 weeks then TIW as needed. Discontinued Reason: MD Order 1 applic topical BID 100 grams 0RF L30.8 Instructions: Type 2 Diabetes in Adults (GEN) Electronically Signed By: <Electronically signed by Aiden Kilpatrick DO> Date/Time Signed: 09/12/19 1445 Name Value Range Interpretation Code Description Data Tabitha rce(s) Supporting Document(s) ID Date Data Source [id number] 09/07/2019 10:13:00 [place] [address] PHONE: [phone] FAX: [phone] Name .................. : FLORA Mendez Acct Number.................. : [id number] ROOM. ................. : TR-02 Number ................... : [id number] Stay type ............. : E/R Discharge Date......... ... : Admit Date ......... : 08/21 03/09 Admit Phys .................... : GREGORY WORTHY Date of ....... : 1970 Family Phys ................... : KINGS MACIAS Phone .................. : [phone] Age ................................ : 49 Film# .................. .:[id number] Sex ................................. : F Unsigned transcriptions are preliminary reports and do not represent a medical or legal document CHEST 2 VIEWS 86967 COMPLETE:09/05/19 11:41 [id number] Reason(s): Chest Pain CHEST X-RAY: 2- VIEWS COMPARISON: Prior study from 12/16/17. INDICATION: Chest pain. FINDINGS: The cardiac and mediastinal silhouettes appear normal and the lungs are clear. The bones and soft tissues are normal. The upper abdomen is unremarkable. There is a port over the right hemithorax with its tip in the cavoatrial junction. The remainder of the lung monroe are clear. Cardiac silhouette is unremarkable. The osseous structure show degenerative changes. IMPRESSION: No acute pulmonary findings. No significant change. Examination dictated by DIANA Silveira. Examination was reviewed with Naif Kothari MD, radiologist at the time of this dictation. Electronically Reviewed and Signed By Naif Kothari M.D. , 09/07/19 10:13, [facility] Transcribe Initials: BECCA , Transcribe Date: 09/05/19 12:29, Dictation Date: Copy for: KIRSTY TY via fax Copy for: EMERGENCY DEPT via modem Copy for: [facility] REC Page 1 of 1 Name Value Range Interpretation Code Description Data Tabitha rce(s) Supporting Document(s) ID Date Data Source [id number] 09/07/2019 09:04:00 AM EST [facility] [address] [place] [address] PHONE: [phone] FAX: [phone] Name .................. : FLORA Mendez Acct Number.................. : [id number] ROOM. ................. : 101-1 MR Number ................... : [id number] Stay type ............. : O/P Discharge Date......... ... : Admit Date ......... : 08/21 03/09 Admit Phys .................... : ROMAN-ÁNGELA Date of ....... : 1970 Family Phys ................... : KINGS MACIAS Phone .................. : [phone] Age ................................ : 49 Film# .................. .:[id number] Sex ................................. : F Unsigned transcriptions are preliminary reports and do not represent a medical or legal document CTA CHEST (NON-CORONARY) [id number] COMPLETE:09/05/19 16:40 KAH 28654 Reason(s): Shortness of Breath CTA OF THE CHEST: HISTORY: Shortness of breath. COMPARISON: 04/06/18 TECHNIQUE: The examination is performed following the administration of IV contrast. FINDINGS: There is no evidence for pulmonary embolus. Lung monroe are free of nodules, infiltrates and masses. The heart is enlarged. Pulmonary vascularity is within normal limits. IMPRESSION: Cardiomegaly. While performing the above CT examination, radiation dose reduction was accomplished utilizing automated exposure control, adjusting of the mA and kV based on the patient's body size and/or the use of imperative reconstructive techniques. CT dose: 820.4 mGycm Contrast agent in mL: 75 Isovue 370 Method of administration: Intravenous Electronically Reviewed and Signed By Derian Farooq MD , 09/07/19 09:04, [facility] Transcribe Initials: BECCA , Transcribe Date: 09/06/19 05:16, Dictation Date: Page 1 of 2 [facility] [address] [place] [address] PHONE: [phone] FAX: [phone] Name .................. : FLORA Mendez Acct Number.................. : [id number] ROOM. ................. : 101-1 MR Number ................... : [id number] Stay type ............. : O/P Discharge Date......... ... : Admit Date ......... : 09/05/19 Admit Phys .................... : TOI Date of ....... : 1970 Family Phys ................... : KINGS MACIAS Phone .................. : [phone] Age ................................ : 49 Film# .................. .:[id number] Sex ................................. : F Unsigned transcriptions are preliminary reports and do not represent a medical or legal document CTA CHEST (NON-CORONARY) [id number] COMPLETE:09/05/19 16:40 KAH 85322 Reason(s): Shortness of Breath Copy for: KIRSTY TY via fax Copy for: EMERGENCY DEPT via modem Copy for: 710 MED REC Page 2 of 2 Name Value Range Interpretation Code Description Data Tabitha rce(s) Supporting Document(s) ID Date Data Source [id number] 09/07/2019 08:36:00 AM EST [facility] Name Value Range Interpretation Code Description Data Tabitha rce(s) Supporting Document(s) COMPREHENSIVE METABOLIC PANEL [facility] COMPREHENSIVE METABOLIC PANEL Sodium [Moles/volume] in Serum or Plasma 142 mEq/L 134 - 153 [facility] Potassium [Moles/volume] in Serum or Plasma 4.1 mEq/L 3.6 - 5.0 [facility] Chloride [Moles/volume] in Serum or Plasma 109 mEq/L 98 - 107 H [facility] Carbon dioxide, total [Moles/volume] in Serum or Plasma 22 MEQ/L 22 - 30 [facility] Glucose [Mass/volume] in Serum or Plasma 100 MG/DL 65 - 110 [facility] BUN 22 MG/DL 7 - [facility] Creatinine [Mass/volume] in Serum or Plasma 0.7 MG/DL 0.7 - 1.5 [facility] BUN/CREAT 31 8 - 27 [facility] Protein [Mass/volume] in Serum or Plasma 6.3 G/DL 6.3 - 8.2 [facility] Albumin [Mass/volume] in Serum or Plasma 4.0 G/DL 3.9 - 5.0 [facility] Globulin [Mass/volume] in Serum by calculation 2.3 GM/DL 2.4 - 3.2 L [facility] A/G RATIO 1.7 0.8 - 2.0 [facility] Calcium [Mass/volume] in Serum or Plasma 8.6 MG/DL 8.4 - 10.2 [facility] Bilirubin.total [Mass/volume] in Serum or Plasma 0.7 MG/DL 0.2 - 1.3 [facility] Alkaline phosphatase [Enzymatic activity/volume] in Serum or Plasma 66 U/L 38 - 126 [facility] Aspartate aminotransferase [Enzymatic activity/volume] in Serum or Plasma 20 U/L 5 - 40 [facility] Alanine aminotransferase [Enzymatic activity/volume] in Seru m or Plasma 40 U/L 7 - 56 [facility] Anion gap 3 in Serum or Plasma 11.0 mmol/L 8.0 - 16.0 [facility] AGE 49 yrs [facility] NON-AA GFR >60 mL/min [facility] AFR AMER GFR >60 mL/min [facility] Male GFR In terprentation 20-49 yrs >60 mL/min Normal 50-59 yrs >56 mL/min Normal 60-69 yrs >49 mL/min Normal 70-79yrs >42 mL/min Normal 80 and above >35 mL/min Normal Female GFR Interpretation 20-39 yrs >60 mL/min Normal 40-49 yrs >58 mL/min Normal 50-59 yrs >51 mL/min Normal 60-69 yrs >45 mL/min Normal 70-79 yrs >39 mL/min Normal 80 and above >32 mL/min Normal ID Date Data Source [id number] 09/07/2019 08:25:00 AM [facility] Name Value Range Interpretation Code Description Data Tabitha rce(s) Supporting Document(s) Lactate [Moles/volume] in Serum or Plasma 1.8 MMOL/L 0.2 - 2.2 [facility] ID Date Data Source [id number] 09/07/2019 08:16:00 AM [facility] Name Value Range Interpretation Code Description Data Tabitha rce(s) Supporting Document(s) CBC W/AUTOMATED DIFF [facility] COMPLETE BLOOD COUNT Leukocytes [#/volume] in Blood by Automated count 11.2 10^3/uL 4.2 - 11.0 H [facility] Erythrocytes [#/volume] in Blood by Automated count 3.96 10^6/uL 4. 20 - 5.40 L [facility] Hemoglobin [Mass/volume] in Blood 12.8 g/dL 12.0 - 16.0 [facility] Hematocrit [Volume Fraction] of Blood by Automated count 37.6 % 3 7.0 - 47.0 [facility] Erythrocyte mean corpuscular volume [Entitic volume] by Auto mated count 94.9 fL 81.0 - 101 [facility] Erythrocyte mean corpuscular hemoglobin [Entitic mass] by Automated count 32.3 pg 27.0 - 34.0 [facility] Erythrocyte mean corpuscular hemoglobin concentration [Mass/volume] by Automated count 34.0 g/dL 31.0 - 36.0 [facility] Erythrocyte distribution width [Ratio] by Automated count 12.9 % 11.5 - 14.5 [facility] Platelets [#/volume] in Blood by Automated count 248 10^3/uL 150 - 45 0 [facility] Platelet mean volume [Entitic volume] in Blood by Automated count 10.0 fL 7.4 - 10.4 [facility] Neutrophils/100 leukocytes in Blood by Automated count 66.5 % 37. 0 - 80.0 [facility] Lymphocytes/100 leukocytes in Blood by Manual count 26.4 % 25.0 - 40.0 [facility] Monocytes/100 leukocytes in Blood by Automated count 6.1 % 3.0 - 8.0 [facility] Eosinophils/100 leukocytes in Blood by Automated count 0.3 % 0.0 - 7.0 [facility] Basophils/100 leukocytes in Blood by Automated count 0.2 % 0.0 - 2.5 [facility] %IG 0.5 % 0.0 - 0.0 H [facility] %NRBC 0.0 % 0.0 - 0.0 [facility] Neutrophils [#/volume] in Blood by Automated count 7.44 10^3/uL 2.00 - 6.90 H [facility] Lymphocytes [#/volume] in Blood by Automated count 2.95 10^3/uL 0.60 - 3.40 [facility] Monocytes [#/volume] in Blood by Automated count 0.68 10^3/uL 0.00 - 0.90 [facility] Eosinophils [#/volume] in Blood by Automated count 0.03 10^3/uL 0.00 - 0.70 [facility] Basophils [#/volume] in Blood by Automated count 0.02 10^3/uL 0.00 - 0.20 [facility] #IG 0.06 10^3/uL 0.00 - 0.10 [facility] #NRBC 0.00 10^3/uL 0.00 - 0.00 [facility] MANUAL DIFF NOT INDICATED [facility] RBC MORPH NOT INDICATED [facility] spital ID Date Data Source [id number] 09/09/2019 06:40:00 AM [facility] Moderate PMNsSquamous cells - FewSpecime n Quality - FairOropharyngeal organisms Name Value Range Interpretation Code Description Data Tabitha rce(s) Supporting Document(s) ID Date Data Source [id number] 09/09/2019 06:40:00 AM [facility] Moderate PMNsSquamous cells - FewSpecime n Quality - FairOropharyngeal organisms Name Value Range Interpretation Code Description Data Tabitha rce(s) Supporting Document(s) Bacteria identified in Sputum by Culture [facility] Quantiy of growth FEW [facility] ID Date Data Source [id number] 09/09/2019 06:40:00 AM [facility] Moderate PMNsSquamous cells - FewSpecime n Quality - FairOropharyngeal organisms Name Value Range Interpretation Code Description Data Tabitha rce(s) Supporting Document(s) TRIMETHOPRIM/SULFAMETHOXAZOLE <2/38 Schaffer sceptible. Indicates for microbiology susceptibilities only. [facility] Amoxicillin+Clavulanate [Susceptibility] by Minimum inhibitory concentration (YAMILKA) >16/8 Resistant. Indicates for microbiology katlyn ceptibilities only. [facility] Ampicillin [Susceptibility] by Minimum inhibitory concentration (YAMILKA) >16 Resistant. Indicates for microbiology susceptibilities only. [facility] Ampicillin+Sulbactam [Susceptibility] by Minimum inhib itory concentration (YAMILKA) >16/8 Resistant. Indicates for microbiology susceptibi lities only. [facility] Cefotaxime [Susceptibility] by Minimum inhibitory concentration (YAMILKA) <2 Resistant. Indicates for microbiology susceptibilities only. [facility] Ceftriaxone [Susceptibility] by Minimum inhibitory concentration (YAMILKA) <1 Resistant. Indicates for microbiology susceptibilities only. [facility] Ciprofloxacin [Susceptibility] by Minimum inhibitory concentrati on (YAMILKA) <1 Susceptible. Indicates for microbiology susceptibilities only. [facility] Ertapenem [Susceptibility] by Minimum inhibitory concentration ( YAMILKA) <0.5 Susceptible. Indicates for microbiology susceptibilities only. [facility] Gentamicin [Susceptibility] by Minimum inhibitory concentration (YAMILKA) <2 Susceptible. Indicates for microbiology susceptibilities only. [facility] Imipenem [Susceptibility] by Minimum inhibitory concentration (M IC) <1 Susceptible. Indicates for microbiology susceptibilities only. [facility] Tetracycline [Susceptibility] by Minimum inhibitory concentratio n (YAMILKA) <4 Susceptible. Indicates for microbiology susceptibilities only. [facility] Tobramycin [Susceptibility] by Minimum inhibitory concentration (YAMILKA) <4 Susceptible. Indicates for microbiology susceptibilities only. [facility] Levofloxacin [Susceptibility] by Minimum inhibitory concentratio n (YAMILKA) <2 Susceptible. Indicates for microbiology susceptibilities only. [facility] Cefepime [Susceptibility] by Minimum inhibitory concentration (M IC) <8 Susceptible. Indicates for microbiology susceptibilities only. [facility] Piperacillin+Tazobactam [Susceptibility] by Minimum inhibitory concentration (YAMILKA) <16 Resistant. Indicates for microbiology katlyn ceptibilities only. [facility] ID Date Data Source [id number] 09/09/2019 08:42:00 AM EST [facility] Name Value Range Interpretation Code Description Data Tabitha rce(s) Supporting Document(s) CULTURE SPUTUM [facility] .CULTURE SPUTUM_ Result: TEST PERFORMED AT [facility] [address] [place] [address] CLIA# [id number] SEE SCANNED REPORT ID Date Data Source [id number] 09/08/2019 07:17:00 PM EST [facility] Name Value Range Interpretation Code Description Data Tabitha rce(s) Supporting Document(s) GRAM STAIN [facility] GRAM STAIN: TEST PERFORMED AT [address] [address] CLIA# [id number] SEE SCANNED REPORT COMMENT: ID Date Data Source [id number] 09/06/2019 07:55:00 PM EST [facility] [address] [place] [address] RESPIRATORY CARE REPORT ==== ---------NAME------- NUMBER SEX AGE ADMIT DISC. XRAY# F/C MADIHA Mendez [id number] F 49 09/05/19 [id number] MB4 O/P DATE OF : 1970 M/R# [id number] #: [id number] LOCATION: EMERGENCY DEPT EKG 47768 COMP LETE:09/06/19 08:11 OSCAR 57[address] PHYSICIAN: TOI Name Value Range Interpretation Code Description Data Tabitha rce(s) Supporting Document(s) ID Date Data Source [id number] 09/05/2019 11:28:00 AM EST [facility] 1 OrderSheet [facility] Emergency Department [address] [place] [address] Phone #: [phone] 09/05/2019 11:19 Patient: MIRIAM HINES Sex: F : 1970 Age: 49yWEIGHT:99.7 kg (S) HEIGHT:67 inches (S) BMI:34.5ALLERGIES: ARIPiprazole, Bentyl, Celecoxib, FLUoxetine, Gabapentin, HYDROmorphone HCl,Penicillins, Pregabalin, PT CANNOT HAVE MRI'S, root beer, Statins, ZofranCHIEF COMPLAINT: chest painDIAGNOSIS: Chest painLAB ORDERSOrder Descriptio n Priority Entered Acknowledged InitialedCBC w Diff STAT 11:41 09/05/2019 11:48 Jj [facility] ED; Tech1 Reason for ordering with alerts: Does not appear to be a true allergy -- 11:41 09/05/2019 Godfrey Samson PABNP STAT 11:41 09/05/2019 11:48 Jj [facility] ED; Tech1 Reason for ordering with alerts: Does not appear to be a true allergy -- 11:41 09/05/2019 Godfrey Sancheztommy PACMP STAT 11:41 09/05/2019 11:48 [facility] business administration program chair, Jj ER PA; Tech1 Reason for ordering with alerts: Does not appear to be a true allergy -- 11:41 09/05/2019 Godfrey Samson PAPT/PTT STAT 11:41 09/05/2019 11:48 [facility] ponchocameron business administration program chair, Jj LIBERTY PA; Tech1 Reason for ordering with alerts: Does not appear to be a true allergy -- 11:41 09/05/2019 Godfrey Samson PALactic Acid STAT 11:41 09/05/2019 11:48 [facility] business administration program chair, Jj LIBERTY PA; Tech1 Reason for ordering with alerts: Does not appear to be a true allergy -- 11:41 09/05/2019 Godfrey Samson PABlood Culture STAT 11:41 09/05/2019 11:48 [id number] X2 (Sched GodfreyPylecameron business administration program chair, [place] ER11:41 09/05/2019) PA; Tech1 Reason for ordering with alerts: Does not appear to be a true allergy -- 11:41 09/05/2019 Godfrey ORTIZ 2 OrderSheet [facility] Emergency Department [address] [place] [address] Phone #: [phone] 09/05/2019 11:19 Patient: MIRIAM HINES Sex: F : 1970 Age: 49yBlood Culture STAT 11:41 09/05/2019 12:40 Liz Mei10m X2 (Rosie Samson RN11:51 09/05/2019) PA; Reason for ordering with alerts: Does not appear to be a true allergy -- 11:41 09/05/2019 Godfrey Samson PATroponin-T STAT 11:41 09/05/2019 11:48 [place] GodfreyCarvajal business administration program chair, Jj ER PA; Tech1 Reason for ordering with alerts: Does not appear to be a true allergy -- 11:41 09/05/2019 Godfrey Samson PAUrinalysis (Clean STAT 11:41 09/05/2019 11:48 BurnhamCatch) Godfrey Samson business administration program chair, Jj ER PA; Tech1 Reason for ordering with alerts: Does not appear to be a true allergy -- 11:41 09/05/2019 Godfrey Samson PADIAGNOSTIC STUDY ORDERSOrder Description Priority Entered Acknowledged InitialedChest 2 View STAT 11:41 09/05/2019 12:01 Aye Mei(Oxygen?(No)) Godfrey Samson RN PA; Reason for ordering with alerts: Does not appear to be a true allergy -- 11:41 09/05/2019 Godfrey ORTIZ Reason for Study: Chest PainCTA Chest STAT 13:29 09/05/2019 13:32 Aye Mei(Non-Coronary) Godfrey Samson RN(Oxygen?(No)) PA; Reason for ordering with alerts: Does not appear to be a true allergy -- 13:29 09/05/2019 Godfrey ORTIZ Reason for Study: Shortness of BreathMEDICATION/IV/DRIP/FLUID ORDERSOrder Description Priority Entered Acknowledged InitialedBenadryl IVP 25 mg 11:41 09/05/2019 12:39 Aye Mei RN PA; Reason for ordering with alerts: Does not appear to be a true allergy -- 11:41 09/05/2019 Godfrey Samson PAMorphine IVP 2 mg 11:41 09/05/2019 12:39 Aye Mei(HIGH ALERT Godfrey Samson RNMEDICATION) PA; Reason for ordering with alerts: Does not appear to be a true allergy -- 11:41 09/05/2019 Godfrey ORTIZ 3 OrderSheet [facility] Emergency Department [address] [place] [address] Phone #: ext- [phone] 09/05/2019 11:19 [id number] Sex[facility] 1970 Age: 49yNitroGLYCERIN 11:41 09/05/2019 Initialed: 12:17 Aye Mei RNTopical Ointment Godfrey Samson Refused: 12:17 NitroGLYCERIN Topical1 in. PA; Ointment 1 in. was refused by patient because of concern over the side effects. Reason for ordering with alerts: Does not appear to be a true allergy -- 11:41 09/05/2019 Godfrey Samson PADuoNeb 3 mL X2 12:45 09/05/2019 13:19 Sunni Meies: 6 mL (3 mL Godfrey Samson RNX2 Doses) PA;predniSONE PO 60 12:45 09/05/2019 13:19 Dorota Mei RN PA;Morphine IVP 2 mg 13:29 09/05/2019 13:50 Aye Mei(HIGH ALERT Godfrey Samson RNMEDICATION) PA; Reason for ordering with alerts: Does not appear to be a true allergy -- 13:29 09/05/2019 Godfrey Samson PAMorphine IVP 2 mg 17:10 09/05/2019 17:48 Aye Mei(HIGH ALERT Godfrey Samson RNMEDICATION) PA; Reason for ordering with alerts: Does not appear to be a true allergy -- 17:10 09/05/2019 Godfrey Samson PABenadryl 25 mg IVP 17:43 09/05/2019 17:49 Belén Mei dose: 25 mg Godfrey Samson RN(NOW x1) PA;GENERAL ORDERSOrder Description Priority Entered Acknowledged InitialedBlood Pressure 11:41 09/05/2019 11:48 BurnhamMonitor Godfrey Samson business administration program chairJj Daniels PA; Tech1 Reason for ordering with alerts: Does not appear to be a true allergy -- 11:41 09/05/2019 Godfrey Samson PACardiac Monitor 11:41 09/05/2019 11:48 [place](continuous) Godfrey Samson business administration program chairJj PA; Tech1 Reason for ordering with alerts: Does not appear to be a true allergy -- 11:41 09/05/2019 Godfrey Samson PAEKG 11:41 09/05/2019 11:48 [facility] ER Tech, [facility] PA; Tech1 Reason for ordering with alerts: Does not appear to be a true allergy -- 11:41 4 OrderSheet [facility] Emergency Department [address] [place] [address] Phone #: ext- [phone] 09/05/2019 11:19 Patient: MIRIAM HINES Sex: F : 1970 Age: 49y 09/05/2019 Godfrey ORTIZObtain Old EKG 11:41 09/05/2019 11:48 [facility], [facility] PA; Tech1 Reason for ordering with alerts: Does not appear to be a true allergy -- 11:41 09/05/2019 Godfrey Samson PAPulse oximeter 11:41 09/05/2019 11:48 [place](Continuous) [facility], [facility] PA; Tech1 Reason for ordering with alerts: Does not appear to be a true allergy -- 11:41 09/05/2019 Godfrey Samson PAVitals 11:41 09/05/2019 11:48 [facility], [facility] PA; Tech1 Reason for ordering with alerts: Does not appear to be a true allergy -- 11:41 09/05/2019 Godfrey Samson PADiet: (Regular Diet) 17:57 09/05/2019 17:57 Aye Mei Lisa RN; RN Verbal order per; Godfrey ORTIZ[Electronically signed by Iris Canales R.N. (23:47 09/05/2019)][Electronically signed by Iris Canales R.N. (23:47 09/05/2019)][Electronically signed by Iris Canales R.N. (04:30 09/06/2019)][Electronically signed by Iris Canales R.N. (04:31 09/06/2019)][Electronically signed by Godfrey Samson (13:28 09/06/2019)][Electronically locked by Iris Canales R.N. (23:47 09/05/2019)] Name Value Range Interpretation Code Description Data Tabitha rce(s) Supporting Document(s) ID Date Data Source [id number] 09/05/2019 11:28:00 AM EST [facility] 1 Medication Reconciliation Report [facility] Emergency Department [address] [place] [address] Phone #: ext- [phone] 09/05/2019 11:19 Patient: MIRIAM HINES Sex: F : 1970 Age: 49yWeight: 99.7 kgHeight/Length: 67 in.BMI: 34.5ALLERGIES: ARIPiprazole, Bentyl, Celecoxib, FLUoxetine, Gabapentin, HYDROmorphone HCl,Penicillins, Pregabalin, PT CANNOT HAVE MRI'S, root beer, Statins, ZofranThe patient's Home Medications are listed below:THE FOLLOWING MEDICATIONS NEED TO BE RECONCILED: Aspirin Oral 81 mg, daily Betapace Oral 80 mg, 2x a day busPIRone HCl Oral 10 mg, 2x a day Effexor XR Oral 75 mg, daily Fish Oil Oral (500 mg) 1 capsule, daily Metoprolol Tartrate Oral 12.5 mg, 2x a day Mirapex Oral 0.5 mg, daily, at bedtime Multivitamin Oral, daily Norvasc Oral 5 mg, daily Prevacid Oral 30 mg, 2x a day traZODone HCl Oral 100 mg, daily, at bedtimeThe source(s) of the original Home Medication information:patientThe following Medications were given to the patient in the Emergency Department:Benadryl [IVP] IVP 25 mg, administered: 09/05/2019 12:15:00 PM 2 Medication Reconciliation Report [facility] Emergency Department [address] [place] [address] Phone #: ext- [phone] 09/05/2019 11:19 Patient: MIRIAM HINES Sex: F : 1970 Age: 49yMorphine [IVP] IVP 2 mg, administered: 09/05/2019 12:15:00 PMDuoneb [Neb Tx] Neb TX 2 unit dose, administered: 09/05/2019 1:19:00 PMPrednisone [PO] PO 60 mg, administered: 09/05/2019 1:19:00 PMMorphine [IVP] IVP 2 mg, administered: 09/05/2019 1:50:00 PMMorphine [IVP] IVP 2 mg, administered: 09/05/2019 5:43:00 PMBenadryl [IVP] IVP 25 mg, administered: 09/05/2019 5:49:00 PMThe following Medications were prescribed to the patient:None. Name Value Range Interpretation Code Description Data Tabitha rce(s) Supporting Document(s) ID Date Data Source [id number] 09/05/2019 11:28:00 AM EST [facility] 1 Medication Administration Record [facility] Emergency Department [address] [place] [address] Phone #: ext- [phone] 09/05/2019 11:19 Patient: MIRIAM HINES Sex: F : 1970 Age: 49yWeight: 99.7 kgHeight/Length: 67 inBMI: 34.5ALLERGIES: PT CANNOT HAVE MRI'S, Pregabalin, ARIPiprazole, FLUoxetine, HYDROmorphone HCl, Celecoxib, Zofran,Gabapentin, Penicillins, root beer, Statins, Bentyl Date/Time Medication Administered Medication OrderedGiven BENADRYL [IVP] (DIPHENHYDRAMINE Benadryl IVP 25 mg12:15 09/05/2019 HCL)Aye Mei RN Dose: 25 mg IVP Site: #1 MidlineGiven MORPHINE [IVP] Morphine IVP 2 mg (HIGH ALERT12:15 09/05/2019 Dose: 2 mg IVP MEDICATION)Aye Mei RN Site: #1 MidlineGiven DUONEB [NEB TX] DuoNeb 3 mL X2 Doses: 6 mL (313:19 09/05/2019 Dose: 2 unit dose Nebulizer Neb TX mL X2 Doses)Aye Mei RNGiven PREDNISONE [PO] predniSONE PO 60 mg13:19 09/05/2019 Dose: 60 mg Tablets POBrowAye gloria RNGiven MORPHINE [IVP] Morphine IVP 2 mg (HIGH ALERT13:50 09/05/2019 Dose: 2 mg IVP MEDICATION)Aye Mei RN Site: #2 right forearmGiven MORPHINE [IVP] Morphine IVP 2 mg (HIGH ALERT17:43 09/05/2019 Dose: 2 mg IVP MEDICATION)Aye Mei RN Site: #2 right forearmGiven BENADRYL [IVP] (DIPHENHYDRAMINE Benadryl 25 mg IVP X1 dose: 2517:49 09/05/2019 HCL) mg (NOW x1)Aye Mei RN Dose: 25 mg IVP Site: #2 right forearm Name Value Range Interpretation Code Description Data Tabitha rce(s) Supporting Document(s) ID Date Data Source [id number] 09/05/2019 11:28:00 AM EST [facility] 1 General Instructions [facility] Emergency Department [address] [place] [address] Phone #: ext- [phone] 09/05/2019 11:19 Patient: MIRIAM HINES Sex: F : 1970 Age: 49yPrecordial chest pain characterized as "pressure".(Electronically signed by DIANA Miller 09/06/2019 13:28) Name Value Range Interpretation Code Description Data Tabitha rce(s) Supporting Document(s) ID Date Data Source [id number] 09/05/2019 11:28:00 AM EST [facility] 1 Clinical Report - Nurses [facility] Emergency Department [address] [place] [address] Phone #: ext- [phone] 09/05/2019 11:19 Patient: MIRIAM HINES Sex: F : 1970 Age: 49yTRIAGEArrived by private vehicle. Historian: patient. Accompanied by spouse.Triage time: 11:20 09/05/2019. Acuity: LEVEL 3.Chief Complaint: CHEST PAIN.Alert. No acute distress.This started yesterday. ( Pt states she has been intermittently sick for the past few weeks with co ldsymptoms/cough. Pt states she started having chest pain yesterday and this morning started vomitingblood (twice so far). Pt states she has a large cardiac history.). The patient has had difficulty breathing,nausea, vomiting and a cough.Treatment ELECTRICAL DESIGNER DRAFTER:None.SEPSIS SCREEN: NEGATIVE (11:27 09/05/2019). --11:09/05/19 Svitlana Gaffney R.N.11:09/05/19. BP: 123/95. MAP: 104. HR: 74. RR: 18. O2 saturation: 98% on room air. Temp: 98.8 F(oral). Pain level now: 03/30. --11:28 09/05/19 Svitlana Gaffney R.N.Weight: 99.7 kg stated. Height/Length: 67 inches Per Patient. BMI: 34.5. --11:09/05/19 Svitlana Gaffney R.N.MedicationsAspirin Oral 81 mg, daily. --11:09/05/19 Svitlana Gaffney R.N. Effexor XR Oral 75 mg, daily. --11:09/05/19 Svitlana Gaffney R.N. Mirapex Oral 0.5 mg, daily at bedtime. --11:09/05/19 Svitlana Gaffney R.N. busPIRone HCl Oral 10 mg, 2x a day. --11:09/05/19 Svitlana Gaffney R.N. Betapace Oral 80 mg, 2x a day. --11:09/05/19 Svitlana Gaffney R.N. Norvasc Oral 5 mg, daily. --11:09/05/19 Svitlana Gaffney R.N. Metoprolol Tartrate Oral 12.5 mg, 2x a day. --11:09/05/19 Svitlana Gaffney R.N. traZODone HCl Oral 100 mg, daily at bedtime. --11:09/05/19 Svitlana Gaffney R.N. Prevacid Oral 30 mg, 2x a day. --11:09/05/19 Svitlana Gaffney R.N. Multivitamin Oral, daily. --11:09/05/19 Svitlana Gaffney R.N. Fish Oil Oral (Capsule 500 mg) 1 capsule, daily. --11:24 09/05/19 Svitlana Gaffney R.N.AllergiesBentyl. --11:24 09/05/19 Svitlana Gaffney R.N.Statins. --11:24 09/05/19 Svitlana Gaffney R.N.root beer. --11:24 09/05/19 Svitlana Gaffney R.N.Penicillins. --11:24 09/05/19 Svitlana Gaffney R.N. 2 Clinical Report - Nurses [facility] Emergency Department [address] [place] [address] Phone #: ext- [phone] 09/05/2019 11:19 [id number] Sex[facility] F : 1970 Age: 49yGabapentin. --11:24 09/05/19 Svitlana Gaffney R.N.Zofran. --11:24 09/05/19 Svitlana Gaffney R.N.Celecoxib. --11:24 09/05/19 Svitlana Gaffney R.N.HYDROmorphone HCl. --11:25 09/05/19 Svitlana Gaffney R.N.FLUoxetine. --11:25 09/05/19 Svitlana Gaffney R.N.ARIPiprazole. --11:09/05/19 Svitlana Gaffney R.N.Pregabalin. --11:09/05/19 Svitlana Gaffney R.N.PT CANNOT HAVE MRI'S. --11:09/05/19 Svitlana Gaffney R.N.PROBLEMS:Hidradenitis Suppurativa.Cardiac arrythmia.Diabetes Mellitus Type 2.Irritable bowel syndrome (disorder). --11:26 09/05/19 Svitlana Gaffney R.N.Degenerative Joint Disease.Restless Legs Syndrome.Sleep Apnea.Fibromyalgia.Hyperlipidemia.Hypertension.Insomnia.Migraine Head ache.Depression.Coronary Artery Disease.Anxiety Reaction. --11:36 09/05/19 Parker Miller following entry was modified by DIANA Miller, 11:36 09/05/19Degenerative Joint Disease. --11:09/05/19 Svitlana Gaffney R.N.The following entry was modified by DIANA Miller, 11:36 09/05/19Restless Legs Syndrome. --11:26 09/05/19 Svitlana Gaffney R.N.The following entry was modified by DIANA Miller, 11:36 09/05/19Sleep Apnea. --11:26 09/05/19 Svitlana Gaffney R.N.The following entry was modified by DIANA Miller, 11:36 09/05/19Fibromyalgia. --11:26 09/05/19 Svitlana Gaffney R.N.The following entry was modified by DIANA Miller, 11:36 09/05/19Hyperlipidemia. --11:26 09/05/19 Svitlana Gaffney R.N.The following entry was modified by DIANA Miller, 11:36 09/05/19Hypertension. --11:25 09/05/19 Svitlana Gaffney R.N.The following entry was modified by DIANA Miller, 11:36 09/05/19Insomnia. --11:25 09/05/19 Svitlana Gaffney R.N.The following entry was modified by DIANA Miller, 11:36 09/05/19Migraine Headache. --11:25 09/05/19 Svitlana Gaffney R.N.The following entry was modified by DIANA Miller, 11:36 09/05/19Depression. --11:25 09/05/19 Svitlana Gaffney R.N. 3 Clinical Report - Nurses [facility] Emergency Department [address] [place] [address] Phone #: ext- [phone] 09/05/2019 11:19 Patient: MIRIAM HINES Sex: F : 1970 Age: 49y The following entry was modified by DIANA Miller, 11:36 09/05/19 Coronary Artery Disease. --11:09/05/19 Svitlana Gaffney R.N. The following entry was modified by DIANA Miller, 11:36 09/05/19 Anxiety Reaction. --11:25 09/05/19 Svitlana Gaffney R.N.. Medication/allergy information source: the patient. --11:28 09/05/19 Svitlana Gaffney R.N. ADDITIONAL SURGERIES: Cardiac Catheterization. --11:09/05/19 Svitlana Gaffney R.N. History PAST MEDICAL HX: Immunizations: up-to-date. The patient has had a hysterectomy. SOCIAL HX: Never smoker. No alcohol use or drug use. The patient was offered HIV testing but declined. Patient education was provided. The patient was offered hepatitis C testing but declined. Patient education was provided. The patient has not traveled outside the [place] Infectious disease exposure: No infectious disease exposure. Patient is not a known carrier of tuberculosis, hepatitis, HIV, MRSA or VRE. Patient is not a known carrier of CRE. SELF HARM ASSESSMENT: Self harm assessment was performed. The patient answered "no" to the question(s) "Do you have thoughts of harming or killing yourself?" and "Do you have a plan for harming or killing yourself?". ABUSE ASSESSMENT: Abuse assessment. The patient had positive responses to the question(s) "Do you feel safe in your home?". Abuse denied. No suspicion of abuse. No report of abuse. NUTRITIONAL RISK ASSESSMENT: The nutritional risk assessment revealed no deficiencies. FUNCTIONAL ASSESSMENT: Functional assessment: no impairments noted. LEARNING NEEDS ASSESSMENT: The learning needs assessment revealed no barriers. FALL RISK ASSESSMENT: Fall risk assessment completed. No risk factors identified. SKIN INTEGRITY ASSESSMENT: Skin integrity risk assessment completed. No skin integrity risk identified. --09/05/19 Svitlana Gaffney R.N. Interventions Identification band on patient. --09/05/19 Svitlana Gaffney R.N.PHYSICAL ASSESSMENTAmbulatory to room.GENERAL / NEURO / PSYCH: Alert. Oriented X 4. Appears in no acute distress.HEENT: Mucous membranes are pink.RESPIRATORY: Respirations not labored. Chest wall tenderness. Breath sounds within normal limits. 4 Clinical Report - Nurses [facility] Emergency Department [address] [place] [address] Phone #: ext- [phone] 09/05/2019 11:19 Patient: MIRIAM HINES Sex: F : 1970 Age: 49y CVS: Normal sinus rhythm noted. Heart sounds within normal limits. Capillary refill less than 2 seconds. GI / : Abdomen soft. EXTREMITIES: No lower extremity edema. SKIN: Skin is warm and dry. Normal skin turgor. Skin is non- tender. --11:35 09/05/19 Aye Mei, RN.NURSING PROGRESS NOTESEKG time: (11:23 09/05/2019). EKG was performed by a tech and shown to the PA. --11:31 09/05/19[place]or business administration program chair, Jj, ER Tech1 case resolution specialist, pulse oximeter and NIBP monitor placed on patient; monitor alarms on. --11:32 09/05/19 [place] business administration program chair, Jj, ER Tech1 Patient returned from radiology by wheelchair with tech. --12:02 09/05/19 Aye Mei RN 12:00 09/05/2019 Site #1 started via IV using a Midline catheter with an 20g angiocath, with aseptic technique and good blood return; one attempt. Blood drawn. Saline lock flushed with 10 mL saline. --12:39 09/05/19 Aye Mie RN 12:15 09/05/2019 Benadryl (diphenhydrAMINE HCl) IVP 25 mg given via site #1. Allergies verified and confirmed 5 rights. IV patency established. IV site checked: no pain, redness, or swelling. IV flushed thoroughly pre- and post-medication administration. IVP given by RN. Information reviewed with patient including reason for taking this medication and sedative warning. Verbalizes understanding. --12:39 09/05/19 Aye Mei RN 12:15 09/05/2019 Morphine IVP 2 mg given via site #1. Allergies verified and confirmed 5 rights. IV patency established. IV site checked: no pain, redness, or swelling. IV flushed thoroughly pre- and post-medication administration. IVP given by RN. Information reviewed with patient including reason for taking this medication and sedative warning. Verbalizes understanding. --12:39 09/05/19 Aye Mei RN 12:17 09/05/2019 NitroGLYCERIN Topical Ointment 1 in. was refused by patient because of concern over the side effects. --12:17 09/05/19 Aye Mei RN 13:19 09/05/2019 Duoneb Neb TX Nebulizer 2 unit dose given. Give n by the nurse. Allergies verified and confirmed 5 rights. Information reviewed with patient including reason for taking this medication. Verbalizes understanding. --13:19 09/05/19 Aye Mei RN 13:19 09/05/2019 Prednisone PO Tablets 60 mg given. Allergies verified and confirmed 5 rights. Information reviewed with patient including reason for taking this medication. Verbalizes understanding. --13:19 09/05/19 Aye Mei RN 13:40 09/05/2019 Site #2 started via IV in the right forearm with an 20g angiocath; one attempt. Saline lock flushed with 3 mL saline. --13:50 09/05/19 Aye Mei RN 13:50 09/05/2019 Morphine IVP 2 mg given via site #2. Allergies verified and confirmed 5 rights. IV patency 5 Clinical Report - Nurses [facility] Emergency Department [address] [place] [address] Phone #: ext- [phone] 09/05/2019 11:19 ------ Patient: MIRIAM HINES Sex: F : 1970 Age: 49y established. IV site checked: no pain, redness, or swelling. IV flushed thoroughly pre- and post-medication administration. IVP given by RN. Information reviewed with patient including reason for taking this medication and sedative warning. Verbalizes understanding. --13:50 09/05/19 Aye Mei RN 17:43 09/05/2019 Morphine IVP 2 mg given via site #2. Allergies verified and confirmed 5 rights. IV patency established. IV site checked: no pain, redness, or swelling. IV flushed thoroughly pre- and post-medication administration. IVP given by RN. Information reviewed with patient including reason for taking this medication and sedative warning. Verbalizes understanding. --17:48 09/05/19 Aye Mei RN 17:49 09/05/2019 Benadryl (diphenhydrAMINE HCl) IVP 25 mg given via site #2. Allergies verified and confirmed 5 rights. IV patency established. IV site checked: no pain, redness, or swelling. IV flushed thoroughly pre- and post-medication administration. IVP given by RN. Information reviewed with patient including reason for taking this medication and sedative warning. Verbalizes understanding. --17:49 09/05/19 Aye Mei RN Reassurance given to the patient. Call light placed in reach. Side rails up x 1. Bed placed in lowest position. Brakes of bed on. Patient waiting for admit bed. --19:37 09/05/19 Iris Canales, R.N. 19:37 09/05/19. BP: 124/109. HR: 80. RR: 12. O2 saturation: 98%. Temp: 98.6 F. Pain level now 5/10. --19:38 09/05/19 Iris Canales, R.N. 13:00 09/05/19. ( pt waiting on results, at bedside.). --19:46 09/05/19 Aye Mei RN 13:30 09/05/19. ( pt needs CTA, need to access peripheral IV.). --19:47 09/05/19 Aye Mei RN 13:50 09/05/19. ( pt coughing c/o some increased chest pain when coughing, no productive cough noted, dry harsh, med g iven for pain). --19:48 09/05/19 Aye Mei RN 15:00 09/05/19. ( pt resting, CM remains in NSR, no c/o at this time still awaiting tests and probable admission). --19:50 09/05/19 Aye Mei RN 16:00 09/05/19. The patient reports no complaints and she is resting quietly. --19:51 09/05/19 Aye Mei RN 17:30 09/05/19. ( pt asking for more pain med for her L sided chest pain, PA aware and med ordered). --19:52 09/05/19 Aye Mei RN 18:10 09/05/19. ( pt sitting on edge of bed eating supper. tolerated well, seems to be coughing less.). --19:53 09/05/19 Aye Mei RN.DISPOSITION / DISCHARGE 19:50 09/05/19. Report was given to a nurse via a phone call. Report included patient's care, condition, vital signs, labs and medications. All questions were answered. Report was acknowledged and care was transferred. (Consuelo HARRY). --19:54 09/05/19 Svitlana Fan R.N. 6 Clinical Report - Nurses [facility] Emergency Department [address] [place] [address] Phone #: ext- [phone] 09/05/2019 11:19 Patient: MIRIAM HINES Sex: F : 1970 Age: 49y 21:14 09/05/19. BP: deferred. HR: deferred. RR: deferred. O2 saturation: deferred. Temp: deferred. Pain level now deferred. Additional comments: see print out . --21:15 09/05/19 Iris Canales R.N. Departure time: 20:00 09/05/2019. Admitted to the Acute Inpatient Unit, Monitored (101). Report was given to a nurse at bedside. --21:15 09/05/19 Iris Canales R.N. 21:16 09/05/2019 Site #1 removed upon admission. --21:16 09/05/19 Iris Canales R.N. 21:16 09/05/2019 Site #2 removed upon admission. --21:16 09/05/19 Iris Canales R.N.Locked/Released at 09/06/2019 04:31 by Iris Canales R.N. Name Value Range Interpretation Code Description Data Tabitha rce(s) Supporting Document(s) ID Date Data Source [id number] 09/05/2019 11:28:00 AM [facility] 1 Clinical Report - Physicians/Mid Levels [facility] Emergency Department [address] [place] [address] Phone #: ext- [phone] 09/05/2019 11:19 Patient: MIRIAM HINES Sex: F : 1970 Age: 49y Time Seen: 11:31 09/05/2019. Arrived- By private vehicle. Historian- patient.HISTORY OF PRESENT ILLNESS Chief Complaint: CHEST PAIN. This started last night Pt states she has been intermittently sick for the past few weeks with cold symptoms/cough. Pt states she started having chest pain yesterday and this morning started vomiting blood (twice so far). Pt states she has a large cardiac history.). The patient has had difficulty breathing, nausea, vomiting and a cough. and is still present. It was abrupt in onset and has been constant. It is described as pressure, tightness and "pain" and it is described as located in the left chest area. At its maximum, severity described as moderate. When seen in the E.D., severity described as moderate. The patient has had difficulty breathing, nausea and vomiting. No diaphoresis. Similar symptoms previously. Patient has had similar symptoms several times. Recent medical care: Not recently seen/assessed.REVIEW OF SYSTEMSThe patient has had a hysterectomy. No fever, chills, pedal edema, fainting episodes or headache. Nosore throat, blurred vision, abdominal pain, black stools or difficulty with urination. No skin rash, enlargedlymph nodes, joint pain or bloody stools. The patient has had a cough.PAST HISTORYProblems:Hidradenitis Suppurativa.Cardiac arrythmia.Hyperlipidemia.Diabetes Mellitus Type 2.Irritable bowel syndrome (disorder). Additional Surgeries: Cardiac Catheterization. Medications: Fish Oil Oral (Capsule 500 mg) 1 capsule, daily. Multivitamin Oral, daily. Prevacid Oral 30 mg, 2x a day. traZODone HCl Oral 100 mg, daily at bedtime. Metoprolol Tartrate Oral 12.5 mg, 2x a day. Norvasc Oral 5 mg, daily. Betapace Oral 80 mg, 2x a day. busPIRone HCl Oral 10 mg, 2x a day. 2 Clinical Report - Physicians/Mid Levels [facility] Emergency Department [address] [place] [address] Phone #: ext- [id number] 09/05/2019 11:19 [id number] Sex: F : 1970 Age: 49y Mirapex Oral 0.5 mg, daily at bedtime. Effexor XR Oral 75 mg, daily. Aspirin Oral 81 mg, daily. Allergies: ARIPiprazole. Bentyl. Celecoxib. FLUoxetine. Gabapentin. HYDROmorphone HCl. Penicillins. Pregabalin. PT CANNOT HAVE MRI'S. root beer. Statins. Zofran.SOCIAL HISTORYNever smoker. Occasional alcohol use. No drug use.PHYSICAL EXAMVital Signs: 09/05/2019 11:20 BP: 123/95. MAP: 104. HR: 74. RR: 18. O2 saturation: 98% on room air.Temp: 98.8 F. Pain level now: 03/30. Have been reviewed as normal. Oxygen saturation normal.Appearance: Alert. Oriented X3. No acute distress.Eyes: Pupils equal, round and reactive to light. Eyes normal inspection.ENT: Ears normal. Nose normal. Pharynx normal.Neck: Normal inspection.CVS: Normal heart rate and rhythm. Heart sounds normal.Respiratory: No respiratory distress. Chest pain reproducible. Breath sounds normal.Abdomen: Soft and nontender. Bowel sounds normal. No organomegaly. No mass.Back: Normal external inspection.Skin: Skin warm and dry. Normal skin color. No rash. Normal skin turgor.Extremities: Extremities exhibit normal ROM.Neuro: Oriented X 3.LABS, X-RAYS, AND EKGChest X-ray: (No acute pulmonary findings. No significant change.). The X-rays were interpreted by theradiologist and contemporaneously by me. Interpretation time: 13:06 09/05/2019.CTA Pulmonary Arteries: Cardiomegaly. Great vessels normal. No evidence of pulmonary embolism.Mediastinum normal. Lungs normal. The CTA was performed with contrast. The study was interpretedby the radiologist and contemporaneously by me. Interpretation time: 16:17 09/05/2019.Laboratory Tests: Laboratory tests have been ordered, with results reviewed and considered in themedical decision making process. Blood Culture: (CELY: 09/05/2019 11:51) ( MsgRcvd 09/05/2019 11:56) Canceled 3 Clinical Report - Physicians/Mid Levels [facility] Emergency Department [address] [place] [address] Phone #: ext- [phone] 09/05/2019 11:19 [id number] Sex[facility] F : 1970 Age: 49yCBC w Diff: (CELY: 09/05/2019 11:51) ( MsgRcvd 09/05/2019 12:10) Final results Test Result Flag Units (Reference) CBC W/AUTOMATED DIFF COMPLETE BLOOD COUNT WBC 7.2 10/uL (4.2 - 11.0) RBC 4.08 L 10/uL (4.20 - 5.40) HEMOGLOBIN 13.2 g/dL (12.0 - 16.0) HEMATOCRIT 38.4 % (37.0 - 47.0) MCV 94.1 fL (81.0 - 101) MCH 32.4 pg (27.0 - 34.0) MCHC 34.4 g/dL (31.0 - 36.0) RDW 12.9 % (11.5 - 14.5) PLATELETS 253 10/uL (150 - 450) MPV 9.8 fL (7.4 - 10.4) NEUT 64.8 % (37.0 - 80.0) LYMPH 25.7 % (25.0 - 40.0) MONO 8.0 % (3.0 - 8.0) EOS 0.8 % (0.0 - 7.0) BASO 0.4 % (0.0 - 2.5) %IG 0.3 H % (0.0 - 0.0) %NRBC 0.0 % (0.0 - 0.0) #NEUT 4.64 10/uL (2.00 - 6.90) #LYMPH 1.84 10/uL (0.60 - 3.40) #MONO 0.57 10/uL (0.00 - 0.90) #EOS 0.06 10/uL (0.00 - 0.70) #BASO 0.03 10/uL (0.00 - 0.20) #IG 0.02 10/uL (0.00 - 0.10) #NRBC 0.00 10/uL (0.00 - 0.00) MANUAL DIFF NOT INDICATED RBC MORPH NOT INDICATEDBNP: (CELY: 09/05/2019 11:51) ( [facility] 12:54) Final results Test Result Flag Units (Reference) BNP 310 H PG/ML (0 - 125)CMP: (CELY: 09/05/2019 11:51) ( MsgRcvd 09/05/2019 12:54) Final results Test Result Flag Units (Reference) COMPREHENSIVE METABOLIC PANEL COMPREHENSIVE METABOLIC PANEL SODIUM 142 mEq/L (134 - 153) POTASSIUM 3.8 mEq/L (3.6 - 5.0) CHLORIDE 103 mEq/L (98 - 107) CO2 23 MEQ/L (22 - 30) GLUCOSE 141 H MG/DL (65 - 110) BUN 15 MG/DL (7 - 21) CREATININE 0.7 MG/DL (0.7 - 1.5) BUN/CREAT 21 (8 - 27) TOTAL PROTEIN 7.1 G/DL (6.3 - 8.2) ALBUMIN 4.4 G/DL (3.9 - 5.0) GLOBULIN 2.7 GM/DL (2.4 - 3.2) A/G RATIO 1.6 (0.8 - 2.0) CALCIUM 9.0 MG/DL (8.4 - 10.2) TOTAL BILI <0.7 MG/DL (0.2 - 1.3) ALKALINE PHOS 75 U/L (38 - 126) SGOT/AST 43 H U/L (5 - 40) SGPT/ALT 61 H U/L (7 - 56) ANION GAP 16.0 mmol/L (8.0 - 16.0) AGE 49 yrs NON-AA GFR >60 mL/min AFR AMER GFR >60 mL/min Male GFR Interprentation 20-49 yrs >60 mL/min Gbfowt77-43 yrs >56 mL/min Normal 60-69 yrs >49 mL/min Normal 70-79yrs>42 mL/min Normal 80 and above >35 mL/min Normal Female GFRInterpretation 20-39 yrs >60 mL/min Normal 40-49 yrs >58 mL/min 4 Clinical Report - Physicians/Mid Levels [facility] Emergency Department [address] [place] [address] Phone #: ext- [phone] 09/05/2019 11:19 Patient: MIRIAM HINES Sex: F : 1970 Age: 49yNormal 50-59 yrs >51 mL/min Normal 60-69 yrs >45 mL/min Yxonua27-65 yrs >39 mL/min Normal 80 and above >32 mL/min NormalPT/PTT: (CELY: 09/05/2019 11:51) ( [facility] 09/05/2019 12:25) Final results Test Result Flag Units (Reference) PROTIME 12.6 SECONDS (11.0 - 15.5) INR 0.93 (0.93 - 1.23) PTT 28.4 SECONDS (24.8 - 36.7) \\BLDo\\INR INTERPRETATION\\BLDx\\ Therapeutic range for Coumadin andrelated oral anticoagulants. -International Normalized Ratio (INR): 2.0 - 3.0 for VenousThrombosis, Pulmonary Embolus, Tissue heart valves, Acute IN Atrial Fibrillation, Valvular heart diseaseand recurrent Systemic Embolism. - International Normalized Ratio (INR): 2.5 - 3.5 forMechanical Prosthetic valve. \\BLDo\\PTT INTERPRETATION\\BLDx\\Critical results for patients not on therapy: >50 seconds Critical results for patients on therapy:>119 seconds Therapeutic range for patients on therapy: 58 - 90 seconds Coag studies fromline draws may not be accurate due to Heparin and other interferences.Lactic Acid: (CELY: 09/05/2019 11:51) ( [facility] 09/05/2019 12:12) Final results Test Result Flag Units (Reference) LACTIC ACID 2.4 H MMOL/L (0.2 - 2.2)Troponin-T: (CELY: 09/05/2019 11:51) ( [facility] 09/[facility] 12:54) Final results Test Result Flag Units (Reference) TROPONIN T 0.01 NG/ML (0.00 - 0.10) TROPONI N T0.1 ng/ml Recommended as the clinical threshold value forTroponin T.Urinalysis: (CELY: 09/05/2019 11:51) ( [facility] 09/05/2019 12:11) Final results Test Result Flag Units (Reference) URINALYSIS URINALYSIS SOURCE R COLOR yellow (NORMAL: Yello CLARITY clear (NORMAL: Clear SPEC GRAVITY 1.020 (1.001 - 1.030 pH 6 (5 - 9) GLUCOSE NORM (NORMAL: Negat BILIRUBIN NEG (NORMAL: Negat KETONE NEG (NORMAL: Negat PROTEIN NEG (NORMAL: Negat NITRITE NEG (NORMAL: Negat BLOOD NEG (NORMAL: Negat LEUK EST NEG (NORMAL: Negat UROBILINOGEN NOR (less than 1.0 MICROSCOPIC Not IndicateEKG: (CELY: 09/05/2019 11:41) ( MsgRcvd 09/05/2019 15:26) In ProgressChest 2 View: (CELY: 09/05/2019 11:41) ( MsgRcvd 09/05/2019 13:45) In Progress Exam [place] [address] [place] [address] PHONE: [phone] FAX: [phone] Name .................. : MARICHUYALEXPINKY Mendez Acct Number.................. : [id number] ROOM. ................. : TR-02 MR Number ................... : [id number] Stay type ............. : E/R Discharge Date......... ... : Admit Date ......... : 09/05/19 Admit Phys .................... : GREGORY WORTHY Date of ....... : 1970 Family Phys ................... : [place] Clinical Report - Physicians/Mid Levels [facility] Emergency Department [address] [place] [address] Phone #: ext- [phone] 09/05/2019 11:19 Patient: MIRIAM HINES Sex: F : 1970 Age: 49y Phone .................. : [phone] Age ................................ : 49 Film# .................. .:[id number] Sex ................................. : F Unsigned transcriptions are preliminary reports and do not represent a medical or legal document CHEST 2 VIEWS 95898 COMPLETE:09/05 11:41 [id number] Reason(s): Chest Pain CHEST X-RAY: 2-VIEWS COMPARISON: Prior study from 12/16/17. INDICATION: Chest pain. FINDINGS: The cardiac and mediastinal silhouettes appear normal and the lungs are clear. The bones and soft tissues are normal. The upper abdomen is unremarkable. There is a port over the right hemithorax with its tip in the cavoatrial junction. The remainder of the lung monroe are clear. Cardiac silhouette is unremarkable. The osseous structure show degenerative changes. IMPRESSION: No acute pulmonary findings. No significant change. Examination dictated by DIANA Silveira. Examination was reviewed with Naif Kothari MD, radiologist at the time of this dictation. Electronically Reviewed and Signed By DCTNAME SIGNDATESYDNI Transcribe Initials: BECCA , Transcribe Date: 09/05/19 12:29, Dictation Date: <<REPDIST>> Page 1 of 1.PROGRESS AND PROCEDURESCourse of Care: 16:Sep 05 2019. Evaluation after test results returned. (Discussed case withHospitalist Beatriz Cobos NP and she will admit for Chest pain rule out.). Patient and spouse counseled in person regarding the patient's stable condition, test results, diagnosis and need for admission. Patient and spouse agrees with plan of care. 16:Sep 05 2019. Disposition: Discharged home in good and improved condition (16:Sep 05 2019).CLINICAL IMPRESSION Precordial chest pain characterized as "pressure". 6 Clinical Report - Physicians/Mid Levels [facility] Emergency Department [address] [place] [address] Phone #: ext- [phone] 09/05/2019 11:19 Patient: MIRIAM HINES Sex: F : 1970 Age: 49y(Electronically signed by DIANA Miller 09/06/2019 13:28) Name Value Range Interpretation Code Description Data Tabitha rce(s) Supporting Document(s) ID Date Data Source [id number] 09/06/2019 08:42:00 [place] [address] RESPIRATORY CARE REPORT ==== ---------NAME------- NUMBER SEX AGE ADMIT DISC. XRAY# F/C MADIHA Mendez [id number] F 49 09/05/19 [id number] MB4 O/P DATE OF : 1970 M/R# [id number] #: [id number] LOCATION: EMERGENCY DEPT EKG [id number] COMP LETE:09/05/19 15:24 OSCAR [id number] PHYSICIAN: TOI SAMSON Name Value Range Interpretation Code Description Data Tabitha rce(s) Supporting Document(s) ID Date Data Source [id number] 09/06/2019 06:03:00 AM EST [facility] Name Value Range Interpretation Code Description Data Tabitha rce(s) Supporting Document(s) TROPONIN T <0.01 NG/ML 0.00 - 0.10 [facility] TROPONIN T0.1 ng/ml Recommended as the c linical threshold value forTroponin T. ID Date Data Source [id number] 09/06/2019 06:03:00 AM [facility] Name Value Range Interpretation Code Description Data Tabitha rce(s) Supporting Document(s) Magnesium [Mass/volume] in Serum or Plasma 2.1 MG/DL 1.7 - 2.2 [facility] ID Date Data Source [id number] 09/06/2019 06:03:00 AM [facility] Name Value Range Interpretation Code Description Data Tabitha rce(s) Supporting Document(s) COMPREHENSIVE METABOLIC PANEL [facility] COMPREHENSIVE METABOLIC PANEL Sodium [Moles/volume] in Serum or Plasma 138 mEq/L 134 - 153 [facility] Potassium [Moles/volume] in Serum or Plasma 4.1 mEq/L 3.6 - 5.0 [facility] Chloride [Moles/volume] in Serum or Plasma 100 mEq/L 98 - 107 [facility] Carbon dioxide, total [Moles/volume] in Serum or Plasma 22 MEQ/L 22 - 30 [facility] Glucose [Mass/volume] in Serum or Plasma 152 MG/DL 65 - 110 H [facility] BUN 14 MG/DL 7 - 21 [facility] Creatinine [Mass/volume] in Serum or Plasma 0.6 MG/DL 0.7 - 1.5 L [facility] BUN/CREAT 23 8 - [facility] Protein [Mass/volume] in Serum or Plasma 7.1 G/DL 6.3 - 8.2 [facility] Albumin [Mass/volume] in Serum or Plasma 4.2 G/DL 3.9 - 5.0 [facility] Globulin [Mass/volume] in Serum by calculation 2.9 GM/DL 2.4 - 3.2 [facility] A/G RATIO 1.4 0.8 - 2.0 [facility] Calcium [Mass/volume] in Serum or Plasma 9.2 MG/DL 8.4 - 10.2 [facility] Bilirubin.total [Mass/volume] in Serum or Plasma <0.7 MG/DL 0.2 - 1.3 [facility] Alkaline phosphatase [Enzymatic activity/volume] in Serum or Plasma 72 U/L 38 - 126 [facility] Aspartate aminotransferase [Enzymatic activity/volume] in Serum or Plasma 28 U/L 5 - 40 [facility] Alanine aminotransferase [Enzymatic activity/volume] in Seru m or Plasma 52 U/L 7 - 56 [facility] Anion gap 3 in Serum or Plasma 16.0 mmol/L 8.0 - 16.0 [facility] AGE 49 yrs [facility] al NON-AA GFR >60 mL/min [facility] ital AFR AMER GFR >60 mL/min [facility] Male GFR In terprentation 20-49 yrs >60 mL/min Normal 50-59 yrs >56 mL/min Normal 60-69 yrs >49 mL/min Normal 70-79yrs >42 mL/min Normal 80 and above >35 mL/min Normal Female GFR Interpretation 20-39 yrs >60 mL/min Normal 40-49 yrs >58 mL/min Normal 50-59 yrs >51 mL/min Normal 60-69 yrs >45 mL/min Normal 70-79 yrs >39 mL/min Normal 80 and above >32 mL/min Normal ID Date Data Source [id number] 09/06/2019 05:50:00 AM [facility] Name Value Range Interpretation Code Description Data Tabitha rce(s) Supporting Document(s) Hemoglobin A1c/Hemoglobin.total in Blood 5.8 % 4.4 - 6.1 [facility] {A1]{HB] ID Date Data Source [id number] 09/06/2019 05:50:00 AM [facility] Name Value Range Interpretation Code Description Data Tabitha rce(s) Supporting Document(s) Lactate [Moles/volume] in Serum or Plasma 2.7 MMOL/L 0.2 - 2.2 H [facility] ID Date Data Source [id number] 09/06/2019 05:50:00 AM EST [facility] Name Value Range Interpretation Code Description Data Tabitha rce(s) Supporting Document(s) CBC W/AUTOMATED DIFF [facility] COMPLETE BLOOD COUNT Leukocytes [#/volume] in Blood by Automated count 8.2 10^3/uL 4.2 - 1 1.0 [facility] Erythrocytes [#/volume] in Blood by Automated count 3.97 10^6/uL 4. 20 - 5.40 L [facility] Hemoglobin [Mass/volume] in Blood 12.8 g/dL 12.0 - 16.0 [facility] Hematocrit [Volume Fraction] of Blood by Automated count 37.3 % 3 7.0 - 47.0 [facility] Erythrocyte mean corpuscular volume [Entitic volume] by Auto mated count 94.0 fL 81.0 - 101 [facility] Erythrocyte mean corpuscular hemoglobin [Entitic mass] by Automated count 32.2 pg 27.0 - 34.0 [facility] Erythrocyte mean corpuscular hemoglobin concentration [Mass/volume] by Automated count 34.3 g/dL 31.0 - 36.0 [facility] Erythrocyte distribution width [Ratio] by Automated count 12.7 % 11.5 - 14.5 [facility] Platelets [#/volume] in Blood by Automated count 249 10^3/uL 150 - 45 0 [facility] Platelet mean volume [Entitic volume] in Blood by Automated count 9.8 fL 7.4 - 10.4 [facility] Neutrophils/100 leukocytes in Blood by Automated count 87.6 % 37. 0 - 80.0 H [facility] Lymphocytes/100 leukocytes in Blood by Manual count 9.9 % 25.0 - 40.0 L [facility] Monocytes/100 leukocytes in Blood by Automated count 2.2 % 3.0 - 8.0 L [facility] Eosinophils/100 leukocytes in Blood by Automated count 0.0 % 0.0 - 7.0 [facility] Basophils/100 leukocytes in Blood by Automated count 0.1 % 0.0 - 2.5 [facility] %IG 0.2 % 0.0 - 0.0 H [facility] al %NRBC 0.0 % 0.0 - 0.0 [facility] al Neutrophils [#/volume] in Blood by Automated count 7.14 10^3/uL 2.00 - 6.90 H [facility] Lymphocytes [#/volume] in Blood by Automated count 0.81 10^3/uL 0.60 - 3.40 [facility] Monocytes [#/volume] in Blood by Automated count 0.18 10^3/uL 0.00 - 0.90 [facility] Eosinophils [#/volume] in Blood by Automated count 0.00 10^3/uL 0.00 - 0.70 [facility] Basophils [#/volume] in Blood by Automated count 0.01 10^3/uL 0.00 - 0.20 [facility] #IG 0.02 10^3/uL 0.00 - 0.10 [facility] #NRBC 0.00 10^3/uL 0.00 - 0.00 [facility] MANUAL DIFF NOT INDICATED [facility] RBC MORPH NOT INDICATED [facility] ID Date Data Source [id number] 09/05/2019 09:40:00 PM EST [facility] Name Value Range Interpretation Code Description Data Tabitha rce(s) Supporting Document(s) TROPONIN T <0.01 NG/ML 0.00 - 0.10 [facility] TROPONIN T0.1 ng/ml Recommended as the c linical threshold value forTroponin T. ID Date Data Source [id number] 09/05/2019 09:40:00 PM EST [facility] Name Value Range Interpretation Code Description Data Tabitha rce(s) Supporting Document(s) CVE PANEL [facility] LIPID PANEL Cholesterol [Mass/volume] in Serum or Plasma 246 MG/DL 131 - 200 H [facility] Deprecated Triglyceride [Mass/volume] in Serum or Plasma 87 MG/DL 3 5 - 160 [facility] HDL 57 MG/DL 29 - 86 [facility] Cholesterol in LDL/Cholesterol in HDL [Mass Ratio] in Serum or Plasma 193 mg/dL 65 - 175 H [facility] Cholesterol.total/Cholesterol in HDL [Mass Ratio] in Serum o r Plasma 4.3 3.2 - 4.4 [facility] LDL/HDL 3.39 1.47 - 3.22 H [facility] CVE RISK CHOL/HDL LDL/HDLMEN: 1/2 AVERAGE 3.43 1.00 AVERAGE 4.97 3.55 2X AVERAGE 9.55 6.25 3X AVERAGE 23.99 7.99WOMEN: 1/2 AVERAGE 3.27 1.47 AVERAGE 4.44 3.22 2X AVERAGE 7.05 5.03 3X AVERAGE 11.04 6.14 ID Date Data Source [id number] 09/10/2019 05:28:00 PM [facility] Name Value Range Interpretation Code Description Data Tabitha rce(s) Supporting Document(s) Bacteria identified in Blood by Culture [facility] NO GROWTH AFTER 5 DAYS ID Date Data Source [id number] 09/11/2019 07:16:00 AM [facility] Name Value Range Interpretation Code Description Data Tabitha rce(s) Supporting Document(s) CULTURE BLOOD [facility] spital _CULTURE BLOOD_{ PRELIM TEST [place] [address] CLIA# [id number] SEE SCANNED REPORT ID Date Data Source [id number] 09/05/2019 12:54:00 PM [facility] Name Value Range Interpretation Code Description Data Tabitha rce(s) Supporting Document(s) COMPREHENSIVE METABOLIC PANEL [facility] COMPREHENSIVE METABOLIC PANEL Sodium [Moles/volume] in Serum or Plasma 142 mEq/L 134 - 153 [facility] Potassium [Moles/volume] in Serum or Plasma 3.8 mEq/L 3.6 - 5.0 [facility] Chloride [Moles/volume] in Serum or Plasma 103 mEq/L 98 - 107 [facility] Carbon dioxide, total [Moles/volume] in Serum or Plasma 23 MEQ/L 22 - 30 [facility] Glucose [Mass/volume] in Serum or Plasma 141 MG/DL 65 - 110 H [facility] BUN 15 MG/DL 7 - 21 [facility] al Creatinine [Mass/volume] in Serum or Plasma 0.7 MG/DL 0.7 - 1.5 [facility] BUN/CREAT 21 8 - 27 [facility] Protein [Mass/volume] in Serum or Plasma 7.1 G/DL 6.3 - 8.2 [facility] Albumin [Mass/volume] in Serum or Plasma 4.4 G/DL 3.9 - 5.0 [facility] Globulin [Mass/volume] in Serum by calculation 2.7 GM/DL 2.4 - 3.2 [facility] A/G RATIO 1.6 0.8 - 2.0 [facility] Calcium [Mass/volume] in Serum or Plasma 9.0 MG/DL 8.4 - 10.2 [facility] Bilirubin.total [Mass/volume] in Serum or Plasma <0.7 MG/DL 0.2 - 1.3 [facility] Alkaline phosphatase [Enzymatic activity/volume] in Serum or Plasma 75 U/L 38 - 126 [facility] Aspartate aminotransferase [Enzymatic activity/volume] in Serum or Plasma 43 U/L 5 - 40 H [facility] Alanine aminotransferase [Enzymatic activity/volume] in Seru m or Plasma 61 U/L 7 - 56 H [facility] Anion gap 3 in Serum or Plasma 16.0 mmol/L 8.0 - 16.0 [facility] AGE 49 yrs [facility] al NON-AA GFR >60 mL/min [facility] ital AFR AMER GFR >60 mL/min [facility] Male GFR In terprentation 20-49 yrs >60 mL/min Normal 50-59 yrs >56 mL/min Normal 60-69 yrs >49 mL/min Normal 70-79yrs >42 mL/min Normal 80 and above >35 mL/min Normal Female GFR Interpretation 20-39 yrs >60 mL/min Normal 40-49 yrs >58 mL/min Normal 50-59 yrs >51 mL/min Normal 60-69 yrs >45 mL/min Normal 70-79 yrs >39 mL/min Normal 80 and above >32 mL/min Normal ID Date Data Source [id number] 09/05/2019 12:54:00 PM [facility] Name Value Range Interpretation Code Description Data Tabitha rce(s) Supporting Document(s) BNP 310 PG/ML 0 - 125 H [facility] ID Date Data Source [id number] 09/05/2019 12:54:00 PM [facility] Name Value Range Interpretation Code Description Data Tabitha rce(s) Supporting Document(s) TROPONIN T 0.01 NG/ML 0.00 - 0.10 [facility] spital TROPONIN T0.1 ng/ml Recommended as the c linical threshold value forTroponin T. ID Date Data Source [id number] 09/05/2019 12:25:00 PM [facility] Value Range Interpretation Code Description Data Tabitha rce(s) Supporting Document(s) Prothrombin time (PT) 12.6 SECONDS 11.0 - 15.5 [facility] INR in Platelet poor plasma by Coagulation assay 0.93 0.93 - 1. 23 [facility] aPTT in Blood by Coagulation assay 28.4 SECONDS 24.8 - 36.7 [facility] \\BLDo\\INR INTERPRETATION\\BLDx\\ Therapeutic range for Coumadin and related oral anticoagulants. - International Normalized Ratio (INR): 2.0 - 3.0 for Venous Thrombosis, Pulmonary Embolus, Tissue heart valves, Acute IN Atrial Fibrillation, Valvular heart disease and recurrent Systemic Embolism. - International Normalized Ratio (INR): 2.5 - 3.5 for Mechanical Prosthetic valve. \\BLDo\\PTT INTERPRETATION\\BLDx\\ Critical results for patients not on therapy: >50 seconds Critical results for patients on therapy: >119 seconds Therapeutic range for patients on therapy: 58 - 90 seconds Coag jorge dies from line draws may not be accurate due to Heparin and other interferences. ID Date Data Source [id number] 09/05/2019 12:12:00 PM [facility] Value Range Interpretation Code Description Data Tabitha rce(s) Supporting Document(s) Lactate [Moles/volume] in Serum or Plasma 2.4 MMOL/L 0.2 - 2.2 H [facility] ID Date Data Source [id number] 09/05/2019 12:11:00 PM [facility] Value Range Interpretation Code Description Data Tabitha rce(s) Supporting Document(s) [facility] COLOR yellow NORMAL: Yellow [facility] CLARITY clear NORMAL: Clear [facility] spital Specific gravity of Urine by Test strip 1.020 1.001 - 1.030 [facility] pH 6 5 - 9 [facility] Glucose [Mass/volume] in Urine by Test strip NORM NORMAL: Negat [facility] Bilirubin.total [Presence] in Urine by Test strip NEG NORMAL: Negative [facility] Ketones [Presence] in Urine by Test strip NEG NORMAL: Negative [facility] Protein [Mass/volume] in Urine by Test strip NEG NORMAL: Negat [facility] Nitrite [Presence] in Urine by Test strip NEG NORMAL: Negative [facility] BLOOD NEG NORMAL: Negative [facility] Leukocyte esterase [Presence] in Urine by Test strip NEG RADHA L: Negative [facility] Urobilinogen [Mass/volume] in Urine by Test strip NOR less cecilio n 1.0 mg/dL [facility] MICROSCOPIC Not Indicate [facility] ID Date Data Source [id number] 09/05/2019 12:10:00 PM EST [facility] Name Value Range Interpretation Code Description Data [facility](s) Supporting Document(s) CBC W/AUTOMATED DIFF [facility] COMPLETE BLOOD COUNT Leukocytes [#/volume] in Blood by Automated count 7.2 10^3/uL 4.2 - 1 1.0 [facility] Erythrocytes [#/volume] in Blood by Automated count 4.08 10^6/uL 4. 20 - 5.40 L [facility] Hemoglobin [Mass/volume] in Blood 13.2 g/dL 12.0 - 16.0 [facility] Hematocrit [Volume Fraction] of Blood by Automated count 38.4 % 3 7.0 - 47.0 [facility] Erythrocyte mean corpuscular volume [Entitic volume] by Auto mated count 94.1 fL 81.0 - 101 [facility] Erythrocyte mean corpuscular hemoglobin [Entitic mass] by Automated count 32.4 pg 27.0 - 34.0 [facility] Erythrocyte mean corpuscular hemoglobin concentration [Mass/volume] by Automated count 34.4 g/dL 31.0 - 36.0 [facility] Erythrocyte distribution width [Ratio] by Automated count 12.9 % 11.5 - 14.5 [facility] Platelets [#/volume] in Blood by Automated count 253 10^3/uL 150 - 45 0 [facility] Platelet mean volume [Entitic volume] in Blood by Automated count 9.8 fL 7.4 - 10.4 [facility] Neutrophils/100 leukocytes in Blood by Automated count 64.8 % 37. 0 - 80.0 [facility] Lymphocytes/100 leukocytes in Blood by Manual count 25.7 % 25.0 - 40.0 [facility] Monocytes/100 leukocytes in Blood by Automated count 8.0 % 3.0 - 8.0 [facility] Eosinophils/100 leukocytes in Blood by Automated count 0.8 % 0.0 - 7.0 [facility] Basophils/100 leukocytes in Blood by Automated count 0.4 % 0.0 - 2.5 [facility] %IG 0.3 % 0.0 - 0.0 H [facility] %NRBC 0.0 % 0.0 - 0.0 [facility] al Neutrophils [#/volume] in Blood by Automated count 4.64 10^3/uL 2.00 - 6.90 [facility] Lymphocytes [#/volume] in Blood by Automated count 1.84 10^3/uL 0.60 - 3.40 [facility] Monocytes [#/volume] in Blood by Automated count 0.57 10^3/uL 0.00 - 0.90 [facility] Eosinophils [#/volume] in Blood by Automated count 0.06 10^3/uL 0.00 - 0.70 [facility] Basophils [#/volume] in Blood by Automated count 0.03 10^3/uL 0.00 - 0.20 [facility] #IG 0.02 10^3/uL 0.00 - 0.10 [facility] #NRBC 0.00 10^3/uL 0.00 - 0.00 [facility] MANUAL DIFF NOT INDICATED [facility] RBC MORPH NOT INDICATED [facility] Procedure Social History Code Duration Value Status Description Data Source(s ) 01/31/2020 02:49:27 PM EDT Never smoker completed Never [facility] 01/31/2020 02:49:27 PM EDT Never smoker completed Never [facility] Smoking 01/31/2020 02:49:00 PM EDT Never smoker completed Never [facility] Smoking 01/31/2020 02:49:00 PM EDT Never smoker completed Never [facility] 09/12/2019 02:14:48 PM EST Never smoker completed Never [facility] 09/12/2019 02:14:48 PM EST Never smoker completed Never [facility] Smoking 09/12/2019 02:14:00 PM EST Never smoker completed Never [facility] Vital Signs ID Date Data Source [id number] 06/11/2020 12:20:15 PM EDT [facility] Name Value Range Interpretation Code Description Data Source(s) WEIGHT RECORDED 241.50 pounds 241.50 pounds [facility] Height 67 Inches 067 Inches [facility] ID Date Data Source [id number] 09/12/2019 02:08:56 PM EST [facility] Name Value Range Interpretation Code Description Data Source(s) WEIGHT RECORDED 245.30 pounds 245.30 pounds [facility] Height 67 Inches 067 Inches [facility]
[2020-11-02] MEDS ORDERED: AMLO1TAB24 PO (01:37)
[2020-11-02] MEDS ORDERED: METO1TAB87 PO (01:37)
[2020-11-02] MEDS ORDERED: PANT40TA29 PO (01:37)
[2020-11-02] MEDS ORDERED: RAMI1CAP22 PO (01:37)
[2020-11-02] MEDS ORDERED: ALPR0.5T3 PO (01:37)
[2020-11-02] MEDS ORDERED: TRAZ-257 PO (01:37)
[2020-11-02] MEDS ORDERED: DOXY-259 PO (01:37)
[2020-11-02] MEDS ORDERED: BUSP15TA47 PO (01:37)
[2020-11-02] MEDS ORDERED: MIRA0.5T PO (01:37)
[2020-11-02] MEDS ORDERED: SOTA80TA2 PO (01:37)
[2020-11-02] MEDS ORDERED: VENL75TA2 PO (01:37)
[2020-11-02] MEDS ORDERED: ALPRAZolam 0.5 MG TAB PO PRN (02:15)
[2020-11-02] MEDS ORDERED: MORPHINE 2 MG/ML 1ML VIAL (J2270) IV ONE (02:45)
[2020-11-02] MEDS: PANTOPRAZOLE 40MG TAB (PROTONIX) PO SCH ×2 (02:45→08:33)
[2020-11-02] MEDS ORDERED: diphenhydrAMINE 50MG/ML VIAL (J1200) IV ONE (02:45)
[2020-11-02] MEDS: DOXYCYCLINE HYCLATE 100MG TABLET PO SCH ×2 (02:45→08:33)
[2020-11-02] MEDS: METOPROLOL TART 25 MG TABLET PO SCH ×2 (02:48→08:33)
[2020-11-02] MEDS: SODIUM CHLORIDE 0.9% INJ 10 ML SYR IV PRN ×2 (02:53→04:15)
[2020-11-02] MEDS: NORCO, ANEXSIA 5/325MG TABLET (HYDROcodone/ACETAMINOPHEN) PO PRN ×2 (04:16→11:22)
[2020-11-02 05:08] LABS: ALBUMIN 3.7 GM/DL (3.2-5.2); ALT/SGPT 122 U/L (12-78); BILIRUBIN,TOTAL 0.3 MG/DL (0.2-1.0); BLOOD UREA NITROGEN 24 MG/DL (7-18); CARBON DIOXIDE LEVEL 25 MEQ/L (21-32); CHLORIDE LEVEL 108 MEQ/L (98-107); CREATININE FOR GFR 0.92 MG/DL (0.55-1.30); GLOMERULAR FILTRATION RATE > 60.0 (>58); GLUCOSE, FASTING 99 MG/DL (70-100); POTASSIUM SERUM 3.9 MEQ/L (3.5-5.1); SODIUM LEVEL 142 MEQ/L (136-145); TOTAL PROTEIN 6.9 GM/DL (6.4-8.2); TROPONIN I < 0.02 NG/ML (< 0.10)
[2020-11-02 06:00] VITALS: BP 112/73
--- NOTE | 2020-11-02 06:21 | HPEPDOC ---
General Date of Admission Nov 02, 2020 at 00:38 Date of Service: Nov 02, 2020 Chief Complaint The patient is a 50-year-old female admitted with a reason for visit of Chest Pain. Source: Patient History of Present Illness Mrs. Beauchamp is a 50 year old female with small vessel disease (of the heart), cardiac cath x27, and CABG who was transferred from [facility] for chest pain r/o ACS and possible pulmonary embolism. [facility] was on divergence at the time of this transfer. She was feeling okay until yesterday morning. She woke up with chest pain that was intermittent. It initially was a strong ache which started to become a more constant dull ache. It was substernal with radiation to the left shoulder. She had associated dyspnea and nausea. While at [facility], she had 2 negative troponin. They tried to have IV access for CT angio, but they were not able to obtain IV access. She was transferred here since they were on divergence. Otherwise, the last time she had chest pain was about 6 months ago. She was admitted at [facility] and her Software Controls Engineer, Dr. Parsons (unsure of spelling) medically managed her. She did not have a cardiac cath. Patient will be admitted for atypical chest pain. We will try to get a PICC line for CT angio Otherwise, she tells me that she has a history of fibromyalgia. She is been under a lot of stress as of late. She had loss her house. Her daughter was recently diagnosed with terminal cancer. When I pressed on her chest, it did not reproduce the pain. Home Medications Scheduled Amlodipine Besylate (Amlodipine Besylate) 5 Mg Tablet, 5 MG PO DAILY, (Reported) Buspirone HCl (Buspirone HCl) 15 Mg Tablet, 15 MG PO BID, (Reported) Doxycycline Hyclate (Doxycycline Hyclate) 100 Mg Tablet.dr, 100 MG PO BID, (Reported) STARTED 10/25/20 Metoprolol Tartrate (Metoprolol Tartrate) 25 Mg Tablet, 25 MG PO BID, (Reported) Pantoprazole Sodium (Pantoprazole Sodium) 40 Mg Tablet.dr, 40 MG PO BID, (Reported) Pramipexole Di-HCl (Mirapex) 0.5 Mg Tablet, 0.5 MG PO QHS, (Reported) Ramipril (Ramipril) 2.5 Mg Capsule, 2.5 MG PO DAILY, (Reported) Sotalol HCl (Sotalol) 80 Mg Tablet, 80 MG PO BID, (Reported) Trazodone HCl (Trazodone HCl) 100 Mg Tablet, 100 MG PO QHS, (Reported) Venlafaxine HCl (Venlafaxine HCl) 75 Mg Tablet, 75 MG PO DAILY, (Reported) Scheduled PRN Alprazolam (Alprazolam) 0.5 Mg Tablet, 0.5 MG PO Q4H PRN for ANXIETY, (Reported) Allergies Coded Allergies: Penicillins (Verified Allergy, Unknown, 11/02/20) Xoezgni-Rgq-Ghk Reductase Inhibitor (Verified Allergy, Unknown, 11/02/20) aripiprazole (Verified Allergy, Unknown, 11/02/20) celecoxib (Verified Allergy, Unknown, 11/02/20) codeine (Verified Allergy, Unknown, 11/02/20) dicyclomine (Verified Allergy, Unknown, 11/02/20) duloxetine (Verified Allergy, Unknown, 11/02/20) gabapentin (Verified Allergy, Unknown, 11/02/20) hydromorphone (Verified Allergy, Unknown, 11/02/20) morphine (Verified Allergy, Unknown, 11/02/20) nitroglycerin (Verified Allergy, Unknown, 11/02/20) ondansetron (Verified Allergy, Unknown, 11/02/20) pregabalin (Verified Allergy, Unknown, 11/02/20) Past Medical History Medical History 1. CAD 2. Degenerative joint disease 3. Osteoporosis 4. HLD 5. DM type 2 6. Fibromyalgia Surgical History 1. 10 angioplasty 2. 6 coronary stents 3. CABG 4. Cardiac catheterizations (x28) 5. Carpal tunnel surgery on right 6. Cholecystectomy 7. 8. Hysterectomy 9. Laparoscopy 10. Oophorectomy and Salpingectomy Family History Father: heart disease and DM Mother: heart disease and DM Social History * Smoker: non-smoker Alcohol: Denies Drugs: denies A-FIB/CHADSVASC A-FIB History Current/History of A-Fib/PAF?: No Review of Systems Constitutional: Denies: Chills, Fever Eyes: Denies: Vision change ENT: Denies: Sore Throat Skin: Reports: Other (Psoriasis on head, rash on back and under breast) Pulmonary: Reports: Dyspnea; Denies: Cough Cardiovascular: Reports: Chest Pain (persistent) Gastrointestinal: Reports: Nausea; Denies: Vomiting, Abdominal Pain Genitourinary: Denies: Dysuria Hematologic: Denies: Bruising Neurological: Denies: Numbness Psych: Reports: Anxiety, Depression Physical Examination General Exam: Positive: Alert, Cooperative, Mild Distress Eye Exam: Positive: EOMI; Negative: Sclera icteric Neck Exam: Positive: Supple Chest Exam: Positive: Clear to auscultation Heart Exam: Positive: Rate Normal, Regular Rhythm Abdomen Exam: Positive: Normal bowel sounds, Soft; Negative: Tenderness Extremity Exam: Negative: Edema Skin Exam: Positive: Nl turgor and temperature Neuro Exam: Positive: Cranial Nerves 3-12 NL Psych Exam: Positive: Anxiety Vital Signs Vital Signs Date Time Temp Pulse Resp B/P (MAP) Pulse Ox O2 Delivery O2 Flow Rate FiO2 11/02/20 05:17 17 11/02/20 02:48 77 119/75 11/02/20 00:37 97.1 95 Room Air Laboratory Data Labs 24H Laboratory Tests 2 11/02/20 01:25: Bedside Glucose (Misc Panel) 111H 11/02/20 02:52: Anion Gap 9, Glomerular Filtration Rate > 60.0, Calcium Level 8.0L, Total Bilirubin 0.3, Aspartate Amino Transf (AST/SGOT) 62H, Alanine Aminotransferase (ALT/SGPT) 122H, Alkaline Phosphatase 82, Troponin I < 0.02, Total Protein 6.9, Albumin 3.7, Albumin/Globulin Ratio 1.2 CBC/BMP Laboratory Tests 11/02/20 02:52 Assessment/Plan Mrs. Beauchamp is a 50 year old female with small vessel disease (of the heart), cardiac cath x27, and CABG who was transferred from [facility] for chest pain r/o ACS and possible pulmonary embolism. She does have an extensive heart history and follows with cardiology Dr. Parsons (unsure of spelling). Last time this montemayor ppened was about 6 months ago and was managed medically. May need to reach out to her offbearer sewer pipe for further recommendations. Otherwise, [facility] was concerned for possible PE. They were not able to obtain and IV site. Will order PICC here and order CT angio with contrast. Plan / VTE VTE Prophylaxis Ordered?: Yes Plan Plan 1. Atypical chest pain -Extensive cardiac history -Small vessel disease of the heart -Troponin have been negative x2 at [facility] and negative x1 here -Continue cardiac medication -May need to reach out to her offbearer sewer pipe, Dr. Parsons for further recommendations -Otherwise CTA to rule out PE. 2. Hidradenitis suppurative -She has it under her breast and on backside -Currently on doxycycline 3. Hypertension -Controlled -Continue amlodipine, ramipril, and lopressor 4. Anxiety -Continue Buspirone, venlafaxine, and PRN alprazolam 5. GERD -Continue Protonix 6. DVT ppx -Lovenox. Will start tomorrow as she was given Lovenox at [facility] MERA BEGUM DO Nov 02, 2020 06:21
[2020-11-02 08:32] VITALS: BP 125/85
[2020-11-02] MEDS: SOTALOL HCL 80 MG TAB PO SCH (08:32)
[2020-11-02] MEDS: busPIRone 5 MG TAB PO SCH (08:33)
[2020-11-02] MEDS ORDERED: VENLAFAXINE 37.5 MG TAB PO SCH (09:00)
[2020-11-02] MEDS ORDERED: SODIUM CHLORIDE 0.9% INJ 10 ML SYR IV SCH (09:00)
[2020-11-02] MEDS ORDERED: amLODIPine 5 MG TAB PO SCH (09:00)
[2020-11-02] MEDS ORDERED: ENOXAPARIN 40MG/0.4ML SYRINGE (J1650 PER 10MG) SC SCH (09:00)
[2020-11-02] MEDS ORDERED: ramipriL 1.25 MG CAP PO SCH (09:00)
[2020-11-02] MEDS ORDERED: LIDOCAINE 1% MDV 20ML VIAL As Ordered ONE (10:25)
[2020-11-02 11:26] LABS: HEMATOCRIT 38.7 % (36.0-47.0); HEMOGLOBIN 12.8 g/dl (12.0-15.5); MEAN CORPUSCULAR HEMOGLOBIN 31.8 pg (27.0-33.0); MEAN CORPUSCULAR HGB CONC 33.1 g/dl (32.0-36.5); PLATELET COUNT, AUTOMATED 246 10^3/uL (150-450); RED BLOOD COUNT 4.03 10^6/uL (4.00-5.40); WHITE BLOOD COUNT 5.4 10^3/uL (4.0-10.0)
[2020-11-02] MEDS ORDERED: ISOVUE-370 76% 100ML VIAL As Ordered ONE (12:20)
--- NOTE | 2020-11-02 13:33 | REP ---
INDICATION: chest pain, r/o PE. COMPARISON: None. TECHNIQUE: Contrast dose: 75 ML of Isovue [address] technique: Helical scanning is acquired and overlapping 1.5 mm and contiguous 3 mm axial images are reformatted. In addition, maximum intensity projection and multiplanar re-formation images are generated in sagittal and coronal imaging projections. FINDINGS: There is good opacification in the pulmonary arterial tree. There is no evidence of vessel cut off or filling defect to suggest pulmonary embolus. Homogeneous opacity is seen in the thoracic aorta. There is no evidence of aneurysm or dissection. Lung window settings demonstrate there is no evidence of pulmonary mass or nodule. No pleural or pericardial effusion is seen. There is no evidence of hilar mass or adenopathy. There is goiter is thyroid enlargement at the thoracic inlet measuring 3.8 by 4.2 x 3.1 cm. This lower pole thyroid nodule contains some central calcification. There is subtle deviation of the trachea to the right which is seen radiographically on chest x-ray from 03 October 2018 and 27 September 2014 implying that this is a chronic finding. No bony destructive lesion is seen. No other mediastinal mass or adenopathy is seen. In the upper abdomen, there is moderate diffuse fatty infiltration of the liver. There are surgical clips in the gallbladder fossa. Normal adrenal glands are seen. The visualized upper abdominal structures are otherwise unremarkable. IMPRESSION: No CT evidence of pulmonary embolus. Moderate fatty infiltration of the liver. Goiter is enlargement of the left thyroid at the thoracic inlet. This appears to be a chronic finding. Bibasilar platelike atelectasis. Otherwise negative <Electronically signed by Lai Devlin > 11/02/20 [id number]
[2020-11-02 14:00] VITALS: BP 122/74
--- NOTE | 2020-11-02 16:06 | IPNPDOC ---
Text Note Date of Service The patient was seen on 11/02/20. NOTE Subjective: Patient was seen and examined this morning at bedside. Her chest pain was not reported to worsen on exertion. It's constant and associated with movement. At this time patient doesn't have any chest pain. She does endorse a history of anxiety but no palpitations tells me her daughter was recently diagnosed with terminal cancer. There is no acute overnight events and some of admission. Objective: Constitutional: Awake and alert, in no apparent distress ENT: Sclera are clear. Respiratory: Lungs CTA bilaterally. No respiratory distress. No use of accessory muscles. Cardiovascular: Regular heart rate no JVD. Palpation over the affected chest area did not reproduce the pain. Gastrointestinal: Abdomen is soft, non distended, non tender, BS present. Musculoskeletal: No peripheral edema Neurologic: No focal neurological deficit. Mental Status: A&O x3, normal affect Skin: Warm, dry Assessment/plan: Patient transferred from [facility] as they were on bypass to rule out ACS and to rule out PE due to chest pain. Patient admitted for observation. PE ruled out. ACS ruled out. Patient will be discharged and follow-up with her PCP. No chest pain at time of discharge. # Chest pain rule out ACS: Likely none cardiac CP based on rob criteria. Maciej peralta does have an extensive cardiac history. Patient complained of chest pain and CT and he was unable to be obtained at [facility] and was transferred here. PICC line was placed to obtain venous access for contrast CT angiography was completed and did not show underlying pulmonary embolism. Troponins were trended and were negative. ACS was ruled out. I asked the patient to follow-up with her memory care physician and ski patroller Dr. Lozoya. At the time of discharge patient did not complain of any chest pain. # Hidradenitis suppurative: She has it under her breast and on backside, Cur rently on doxycycline # Hypertension: Continue home meds. Monitor and titrate # Anxiety: Continue Buspirone, venlafaxine, and PRN alprazolam # GERD: Continue Protonix # DVT prophylaxis: Lovenox A [place] [facility] VS,Fishbone, I+O VS, Fishbone, I+O Laboratory Tests 11/02/20 02:52 11/02/20 11:18 Vital Signs Date Time Temp Pulse Resp B/P (MAP) Pulse Ox O2 Delivery O2 Flow Rate FiO2 11/02/20 14:00 96.7 69 18 122/74 (90) 96 Room Air I&O- Last 24 Hours up to 6 AM 11/02/20 06:00 Intake Total 360 ml Output Total 200 ml Balance 160 ml CHANDNI CASSIDY MD Nov 02, 2020 16:06
--- NOTE | 2020-11-02 17:33 | REP ---
INDICATION: Cannot get peripherals. COMPARISON: None. TECHNIQUE: The procedure was performed under the direct supervision of Dr. Devlin. The risks and benefits of the procedure were explained to the patient and informed consent was obtained. The right basilic vein was localized using ultrasound guidance. The skin was prepped and draped in a sterile fashion. 2% lidocaine was used as a local anesthetic. Using ultrasound guidance the basilic vein was cannulated and a 0.018 guidewire was inserted and advanced to the SVC using fluoroscopic guidance. The needle was removed and a 4.5 Irish dilator and peel-away sheath was inserted over the guide wire. A 4.5 Irish single lumen catheter was cut to length of 42 cm. The dilator was removed and the catheter was inserted over the guide wire with the tip ending in the SVC. The peel-away sheath was removed and the catheter was flushed with heparinized saline as per Hospital protocol. The catheter was affixed to the skin and a sterile dressing was applied. The patient tolerated the procedure well and there were no immediate complications. 0.3 minutes of fluoro time was utilized for this procedure. FINDINGS: None IMPRESSION: PICC line insertion right basilic vein. <Electronically signed by Major Head > 11/02/20 1700 <Electronically signed by Lai Devlin > 11/02/20 [id number]
== END 2020-11-02 17:10 | disposition home or self-care (01) ==
LOC: INTOOBSV 11-02 00:38 → M MSPAV 11-02 00:38
PROVIDERS: ADMIT Internal Medicine; ATTEND Family Medicine
DX: R07.89 Other chest pain (principal); I25.10 Atherosclerotic heart disease of native coronary artery without angina pectoris; E78.49 Other hyperlipidemia; E11.9 Type 2 diabetes mellitus without complications; F41.9 Anxiety disorder, unspecified; Z95.1 Presence of aortocoronary bypass graft; Z98.61 Coronary angioplasty status; Z79.899 Other long term (current) drug therapy; L73.2 Hidradenitis suppurativa; M79.7 Fibromyalgia; I10 Essential (primary) hypertension; Z88.5 Allergy status to narcotic agent; Z88.0 Allergy status to penicillin; Z88.8 Allergy status to other drugs, medicaments and biological substances; K21.9 Gastro-esophageal reflux disease without esophagitis
CPT/HCPCS: 36573; 71275; 76937; 80053; 84484; 85027; 96372; 96374; 96375; C1751; G0378; J1200; J1642; J1644; J1650; J2270; Q9967

== ENCOUNTER → 2021-11-01 | Outpatient (REF) | payer MEDICARE, OTHER ==
[~2021-11-01] MED LIST changes: +ALPR0.5T3 PO; +AMLO1TAB24 PO; +BUSP15TA47 PO; +DOXY-259 PO; +METO1TAB87 PO; +MIRA0.5T PO; +PANT40TA29 PO; -PRAMIPEXOLE 0.25 MG TAB PO SCH; +RAMI1CAP22 PO; +SOTA80TA2 PO; +TRAZ-257 PO; +VENL75TA2 PO; -traZODone 100 MG TAB PO SCH
== END ==
LOC: M SFHCDERM 17:16
PROVIDERS: ATTEND Dermatology
DX: D23.61 Other benign neoplasm of skin of right upper limb, including shoulder (principal); D23.62 Other benign neoplasm of skin of left upper limb, including shoulder